=== PATIENT | female | born 1960 | race Caucasian/White ===

== ENCOUNTER → 2023-05-04 08:48 | Outpatient (REF) | payer BC, SELFPAY ==
[2023-05-04 12:47] LABS: % Basophils 0.7 % (0-2); % Eosinophils 1.9 % (0-6); % Immature Granulocytes 0.3 % (0-0.5); % Lymphocytes 21.9 % (20.5-51.1); % Monocytes 7.3 % (1.7-9.3); % Neutrophils 67.9 % (42.2-75.2); Absolute Basophils 0.1 10^3/uL (0-0.2); Absolute Eosinophils 0.1 10^3/uL (0-0.7); Absolute Lymphocytes 1.5 10^3/uL (1.2-3.4); Absolute Monocytes 0.5 10^3/uL (0.1-0.6); Absolute Neutrophils 4.7 10^3/uL (1.4-6.5); Hematocrit 45.3 % (37.0-47.0); Hemoglobin 15.5 g/dL (12.0-16.0); Mean Corp Hgb Conc. 34.2 g/dL (33.0-37.0); Mean Corpuscular Hgb 29.2 pg (27.0-31.0); Mean Corpuscular Volume 85.3 fL (81.0-99.0); Mean Platelet Volume 8.5 fL (7.4-10.4); Nucleated Red Blood Cells % 0 %; Platelet Count 454 10^3/uL (130-400); Red Blood Cell Count 5.31 10^6/uL (4.20-5.40); White Blood Cell Count 6.9 10^3/uL (4.8-10.8)
[2023-05-04 13:00] LABS: ALT (SGPT) 32 U/L (0-35); AST (SGOT) 30 U/L (14-36); Albumin 4.4 g/dl (3.5-5.0); Alkaline Phosphatase 86 U/L (38-126); Blood Urea Nitrogen 11 mg/dl (7-17); Calcium 10.2 mg/dl (8.4-10.2); Carbon Dioxide 29 mmol/L (22-30); Chloride 95 mmol/L (98-107); Glucose 124 mg/dl (70-99); HDL Cholesterol 56 mg/dl; LDL Cholesterol, Calculated 66 mg/dl; Potassium 4.2 mmol/L (3.5-5.1); Sodium 134 mmol/L (135-145); Total Bilirubin 0.6 mg/dl (0.2-1.3); Total Cholesterol 154 mg/dl (50-199); Triglyceride 163 mg/dl (10-149); Very Low Density Lipoprotein 32 mg/dl (0-30); eGFR > 60.00
[2023-05-04 13:22] LABS: Microalbumin, Random Urine <0.6 mg/dl (0.6-1.7)
[2023-05-04 14:07] LABS: Glycohemoglobin (HgbA1c) 6.2 % (4.0-5.6)
== END ==
LOC: HWLAB 08:48
PROVIDERS: ATTENDING PHYSICIAN Internal Medicine
DX: Z00.00 Encounter for general adult medical examination without abnormal findings (principal); E11.9 Type 2 diabetes mellitus without complications; R19.5 Other fecal abnormalities; E78.5 Hyperlipidemia, unspecified
CPT/HCPCS: 36415; 80053; 80061; 82043; 82570; 83036; 84443; 85025

== ENCOUNTER → 2023-10-10 09:46 | Outpatient (REF) | payer MEDICARE, BC, SELFPAY | LOC: HWRAD 09:46 | PROVIDERS: ATTENDING PHYSICIAN Internal Medicine | DX: Z78.0 Asymptomatic menopausal state (principal); Z12.31 Encounter for screening mammogram for malignant neoplasm of breast | CPT/HCPCS: 77063; 77067; 77080 ==

== ENCOUNTER → 2023-11-20 10:43 | Outpatient (REF) | payer MEDICARE, BC, SELFPAY ==
[2023-11-20 15:40] LABS: % Basophils 0.5 % (0-2); % Eosinophils 1.3 % (0-6); % Immature Granulocytes 0.3 % (0-0.5); % Lymphocytes 17.4 % (20.5-51.1); % Monocytes 7.4 % (1.7-9.3); % Neutrophils 73.1 % (42.2-75.2); Absolute Basophils 0.1 10^3/uL (0-0.2); Absolute Eosinophils 0.1 10^3/uL (0-0.7); Absolute Lymphocytes 1.6 10^3/uL (1.2-3.4); Absolute Monocytes 0.7 10^3/uL (0.1-0.6); Absolute Neutrophils 6.8 10^3/uL (1.4-6.5); Hematocrit 45.2 % (37.0-47.0); Hemoglobin 15.9 g/dL (12.0-16.0); Mean Corp Hgb Conc. 35.2 g/dL (33.0-37.0); Mean Corpuscular Hgb 30.1 pg (27.0-31.0); Mean Corpuscular Volume 85.4 fL (81.0-99.0); Mean Platelet Volume 8.4 fL (7.4-10.4); Nucleated Red Blood Cells % 0 %; Platelet Count 509 10^3/uL (130-400); Red Blood Cell Count 5.29 10^6/uL (4.20-5.40); Red Cell Dist. Width 12.3 % (11.5-14.5); White Blood Cell Count 9.4 10^3/uL (4.8-10.8)
[2023-11-20 15:50] LABS: ALT (SGPT) 20 U/L (0-35); AST (SGOT) 26 U/L (14-36); Albumin 4.9 g/dl (3.5-5.0); Alkaline Phosphatase 98 U/L (38-126); Blood Urea Nitrogen 11 mg/dl (7-17); Calcium 10.2 mg/dl (8.4-10.2); Carbon Dioxide 26 mmol/L (22-30); Chloride 96 mmol/L (98-107); Glucose 138 mg/dl (70-99); HDL Cholesterol 77 mg/dl; LDL Cholesterol, Calculated 60 mg/dl; Sodium 138 mmol/L (135-145); Total Bilirubin 0.7 mg/dl (0.2-1.3); Total Cholesterol 168 mg/dl (50-199); Total Protein 7.4 g/dl (6.3-8.2); Triglyceride 155 mg/dl (10-149); Very Low Density Lipoprotein 31 mg/dl (0-30); eGFR > 60.00
[2023-11-21 09:34] LABS: Glycohemoglobin (HgbA1c) 5.9 % (4.0-5.6)
== END ==
LOC: HWRAD 10:43
PROVIDERS: ATTENDING PHYSICIAN Internal Medicine
DX: S91.001A Unspecified open wound, right ankle, initial encounter (principal); R19.5 Other fecal abnormalities; E11.9 Type 2 diabetes mellitus without complications; E78.5 Hyperlipidemia, unspecified
CPT/HCPCS: 36415; 73610; 80053; 80061; 83036; 85025

== ENCOUNTER → 2024-01-10 10:37 | Outpatient (REF) | payer MEDICARE, BC, SELFPAY | LOC: RAD 10:37 | PROVIDERS: ATTENDING PHYSICIAN Internal Medicine | DX: E11.9 Type 2 diabetes mellitus without complications (principal); S91.001A Unspecified open wound, right ankle, initial encounter | CPT/HCPCS: 93925 ==

== ENCOUNTER 2024-02-12 06:25 | Day surgery (SDC) | payer MEDICARE, BC, SELFPAY | END 2024-02-12 12:28 | disposition home or self-care (01) | LOC: GI 06:25 | PROVIDERS: ATTENDING PHYSICIAN Internal Medicine Gastroenterology | DX: K62.4 Stenosis of anus and rectum (principal); D12.8 Benign neoplasm of rectum; D49.0 Neoplasm of unspecified behavior of digestive system; R19.5 Other fecal abnormalities; K22.89 Other specified disease of esophagus; K21.9 Gastro-esophageal reflux disease without esophagitis; K44.9 Diaphragmatic hernia without obstruction or gangrene; K31.7 Polyp of stomach and duodenum; K31.89 Other diseases of stomach and duodenum | CPT/HCPCS: 45385; 45380; 45381; 43239; 88305; 88342 ==

== ENCOUNTER → 2024-02-14 07:41 | Outpatient (REF) | payer MEDICARE, BC, SELFPAY ==
[2024-02-14 12:12] LABS: CEA 72.2 ng/ml
== END ==
LOC: HWLAB 07:41
PROVIDERS: ATTENDING PHYSICIAN Internal Medicine Gastroenterology; FAMILY PHYSICIAN Internal Medicine
DX: K63.89 Other specified diseases of intestine (principal); R19.5 Other fecal abnormalities
CPT/HCPCS: 36415; 82378

== ENCOUNTER → 2024-02-15 15:26 | Outpatient (REF) | payer MEDICARE, BC, SELFPAY | LOC: RAD 15:26 | PROVIDERS: ATTENDING PHYSICIAN Internal Medicine Gastroenterology; FAMILY PHYSICIAN Internal Medicine | DX: K63.89 Other specified diseases of intestine (principal) | CPT/HCPCS: 71260; 74177; Q9967 ==

== ENCOUNTER 2024-02-22 16:44 | Inpatient (IN) | payer MEDICARE, BC, SELFPAY ==
[2024-02-22] VITALS (9 sets, daily range): BP systolic 120–176; BP diastolic 55–83; BMI 21.6; BMI 22.3
[2024-02-22 11:38] LABS: % Basophils 0.8 % (0-2); % Eosinophils 0.2 % (0-6); % Immature Granulocytes 0.4 % (0-0.5); % Lymphocytes 15.7 % (20.5-51.1); % Monocytes 15.5 % (1.7-9.3); % Neutrophils 67.4 % (42.2-75.2); Absolute Lymphocytes 0.8 10^3/uL (1.2-3.4); Absolute Monocytes 0.8 10^3/uL (0.1-0.6); Absolute Neutrophils 3.3 10^3/uL (1.4-6.5); Hematocrit 40.3 % (37.0-47.0); Hemoglobin 14.5 g/dL (12.0-16.0); Mean Corpuscular Hgb 29.4 pg (27.0-31.0); Mean Corpuscular Volume 81.7 fL (81.0-99.0); Mean Platelet Volume 8.3 fL (7.4-10.4); Nucleated Red Blood Cells % 0 %; Platelet Count 335 10^3/uL (130-400); Red Blood Cell Count 4.93 10^6/uL (4.20-5.40); Red Cell Dist. Width 11.9 % (11.5-14.5); White Blood Cell Count 4.9 10^3/uL (4.8-10.8)
[2024-02-22 11:50] LABS: ALT (SGPT) 18 U/L (0-35); AST (SGOT) 33 U/L (14-36); Albumin 4.3 g/dl (3.5-5.0); Alkaline Phosphatase 83 U/L (38-126); Blood Urea Nitrogen 9 mg/dl (7-17); Calcium 9.2 mg/dl (8.4-10.2); Carbon Dioxide 28 mmol/L (22-30); Chloride 89 mmol/L (98-107); Glucose 110 mg/dl (70-99); Potassium 3.9 mmol/L (3.5-5.1); Sodium 126 mmol/L (135-145); Total Bilirubin 0.3 mg/dl (0.2-1.3); Total Protein 6.8 g/dl (6.3-8.2); eGFR > 60.00
[2024-02-22 12:01] LABS: COVID-19 Antigen Negative (Negative)
--- NOTE | 2024-02-22 12:01 | ED.GENMED ---
History of Present Illness
General
Chief Complaint: Cold/Flu/URI Symptoms
Source: patient
Exam Limitations: none
Time Seen by Provider: 02/22/24 11:47
History of Present Illness
History of Present Illness:
63yoF with a history of hypertension, hyperlipidemia, diet-controlled diabetes, and recently diagnosed rectal mass presenting for evaluation of a fever. Symptoms began about 10 days ago after having a colonoscopy. She was having low-grade fevers
with temperatures around 99 degrees. Her fever has worsened over the past 24 hours and her temperature this morning was 101.6. Patient also reports cough, congestion, and shortness of breath. She denies any vomiting, diarrhea, dysuria, abdominal
pain, chest pain. Her was sick initially but he is now feeling better.
Patient had a colonoscopy performed on 02/12/2024 which revealed 'A malignant-appearing, intrinsic severe stenosis with oozing ontouch was found in the proximal rectum at 20 cm and was non-traversed' as well as multiple polyps. Biopsy showed tubular
adenoma. Patient was scheduled to have another biopsy performed yesterday for definitive diagnosis but this was delayed due to her fever.
Phy Exam
General Physical Exam
General Presentation: well appearing and no apparent distress
General age: appears stated age
General Skin: warm and dry
General Habitus: normal
General Mental: alert
ENT Exam
ENT Exam: normocephalic
Cardiovascular Exam
Cardiovascular Exam: regular rate/rhythm and no murmur
Pulmonary Exam
Pulmonary Exam: lungs clear, no respiratory distress, no rales, no crackles, no rhonchi and other (Frequent cough )
Neurological Exam
Neurological Exam: alert
Faraz Coma Scale
Eye Opening: Spontaneous
Verbal Response: Oriented
Motor Response: Obeys Commands
GCS Total Score: 15
Skin Exam
Skin Exam: normal color and warm/dry
Psychiatric Exam
Psychiatric Exam: normal mood/affect
Course
Orders/Labs/Results
Orders:
Orders
02/22/24 11:22
Chest [CR Chest - 2 Views ] Urgent
Comment:
Reason For Exam: cough, fever
02/22/24 11:24
COVID-19 Antigen Urgent
Source: Nasal Swab
Complete Blood Count/With Diff Urgent
Comprehensive Metabolic Panel Urgent
TSH Reflex To Free T4 Urgent
Comment: TSH REFLEX ADDED ON BY FLOOR 3:10PM 02-22-24
Influenza A+B Rapid Molecular Urgent
PRINCESS Source: Nasal Swab
Specimen Description:
02/22/24 11:58
Electrocardiogram (*1) Urgent
Reason for Study: Shortness of Breath
EKG- Treatment ONCE
0.9% Sodium Chloride 1000 ml [Nss] 1,000 ml IV BOLUS
02/22/24 12:49
D-Dimer Urgent
Troponin I Urgent
02/22/24 13:47
CT Chest PE Study Urgent
Comment:
Reason For Exam: SOB, cough, elevated D-dimer
02/22/24 14:01
Chloride, Urine [S] Urgent
Date Specimen was Collected: 02/22/24
Time Specimen was Collected: 14:31
02/22/24 15:05
Osmolality, Random Urine Urgent
Date Specimen was Collected: 02/22/24
Time Specimen was Collected: 14:31
Urinalysis Reflex To Culture Urgent
Date Specimen was Collected: 02/22/24
Time Specimen was Collected: 14:31
Urine Sodium Urgent
Date Specimen was Collected: 02/22/24
Time Specimen was Collected: 14:31
02/22/24 15:11
Add On- LAB Urgent
Tests Added?: Tsh with free t4 reflex
02/22/24 15:15
Blood Culture Q30M
PRINCESS Source: Blood/Venous
Specimen Description:
02/22/24 15:45
Blood Culture Q30M
PRINCESS Source: Blood/Venous
Specimen Description:
02/22/24 15:56
Admit/Transfer Patient As Directed
Co-Sign Provider:
Level of Care: Inpatient admission
Assign to:: Telemetry
Physician / Group: nicolas henriquez
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
Reason for Telemetry: Arrhythmia
Date to Stop Telemetry: 02/25/24
Time to Stop Telemetry: 11:00
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
Expected length of stay greater than two midnights?: Yes
ELOS- Estimated Length of Stay in days: 3
I certify the patient meets the requirements for IP care: Yes
Code Status As Directed
Resuscitation Status: Full Code
02/22/24 16:00
Nicotine [Nicoderm Transdermal] 21 mg TRANSDERM DAILY
02/22/24 16:05
PRN Pain Medication Management As Directed
May give lesser potent ordered pain med per pt: Yes
preference::
Protocol:: Medication orders for pain may be administered in a
manner that supports deferring to patient preference
when the pt is:
- Requesting an ordered lesser potent pain medication.
Least to most potent pain medications are defined
as: acetaminophen < NSAID < tramadol < opioids
(morphine, oxycodone, hydromorphone).
- Requesting a lesser dose of the same medication IF
ORDERED.
- Requesting a less intrusive route of administration
if both routes are prescribed by the provider (PO <
IV).
02/22/24 16:15
Blood Culture Q30M
PRINCESS Source: Blood/Venous
Specimen Description:
02/25/24 11:00
DC Protocol for Telemetry ONCE
Abnormal Lab Results
02/22/24 02/22/24 02/22/24
11:24 12:49 15:05
Absolute Lymphs (auto) 0.8 L 10^3/uL
(1.2-3.4)
Absolute Monos (auto) 0.8 H 10^3/uL
(0.1-0.6)
Lymphocytes % 15.7 L %
(20.5-51.1)
Monocytes % 15.5 H %
(1.7-9.3)
D-Dimer 0.65 H ug/mlFEU
(0.00-0.50)
Sodium 126 L mmol/L
(135-145)
Chloride 89 L mmol/L
(98-107)
Glucose 110 H mg/dl
(70-99)
Urine Osmolality 171 L mOsm/kg
(300-900)
02/22/24 11:24
02/22/24 11:24
Vital Signs
Initial and Last Documented VS:
Initial Vital Signs
Temp Pulse Resp BP Pulse Ox
98.5 F 87 18 144/76 96
02/22/24 11:18 02/22/24 11:18 02/22/24 11:18 02/22/24 11:18 02/22/24 11:18
Last Documented Vital Signs
Temp Pulse Resp BP Pulse Ox
100.7 F H 75 20 137/66 95
02/22/24 16:48 02/22/24 16:45 02/22/24 16:45 02/22/24 16:44 02/22/24 16:45
MDM/Problems Addressed
Differential Diagnosis Includes:
63yoF here with fevers, cough, fatigue x 10 days. Started after having a colonoscopy. Newly diagnosed rectal mass, biopsy confirmed tubular adenoma. Patient reports a fever of 101.6 earlier today although is afebrile on arrival. She is acutely
nontoxic appearing. No signs of respiratory distress. Differential diagnosis includes but is not limited to: Viral illness, bronchitis, pneumonia, fever related to malignancy
Initial ED plan: Check cardiac labs, D-dimer, EKG, COVID/flu swab, and CXR. IV fluid bolus.
*EKG
Interpreted by ED Provider?: Yes
EKG Intrepretation Date: 02/22/24
Heart Rate: 70
Rate: normal
Rhythm: sinus
Export: normal axis
Interval: normal interval
QRS Pattern: normal QRS
Ischemia: no ischemia
*Critical Care Note
Total Time (30-74mins, 75-104mins- exclusive of procedures): Not Applicable
Update Note
Update Note:
COVID/flu swab negative. White count within normal limits. Sodium 126 which appears to be new. D-dimer elevated and CTA chest subsequently ordered. CT is negative for pulmonary embolism and infiltrates. Unclear etiology of fever. Patient
admitted for further evaluation and management.
ED Attending Note
-
Portions of this chart may have been created with voice recognition software.� Occasional wrong word or��sound alike� substitutions may have occurred due to the inherent limitations of voice recognition software.
Discharge Plan
Departure
Patient Disposition: Admit
Date of Disposition: 02/22/24
Time of Disposition: 14:50
Presentation/result/management discussed w/ accepting MD/DO: Hospitalist
Discharge Problem:
Hyponatremia, Fever
Interventions
Interventions:
*Risk Screen - Suicide Last Done: 02/22/24 11:18
*General Assessment Last Done: 02/22/24 11:18
*Neglect/Abuse Screening Last Done: 02/22/24 11:18
*ED COVID-19 Vaccine History Last Done: 02/22/24 11:18
ED- Pulmonary Assessment Last Done: 02/22/24 12:00
[2024-02-22] MEDS: NSS 1000 IV (12:42)
[2024-02-22 13:18] LABS: D-Dimer 0.65 ug/mlFEU (0.00-0.50)
[2024-02-22 13:26] LABS: Troponin I < 0.012 ng/ml
[2024-02-22 15:13] LABS: Urine Albumin Negative (Neg - Trace); Urine Bilirubin Negative (Negative); Urine Character Clear (Clear); Urine Color Straw; Urine Glucose Negative (Negative); Urine Ketone Negative (Negative); Urine Leukocyte Negative (Negative); Urine Nitrite Negative (Negative); Urine Occult Blood Negative (Negative); Urine Specific Gravity 1.005 (<1.030); Urine Urobilinogen Negative (Neg - 1+)
--- NOTE | 2024-02-22 15:14 | HPS.HSE ---
Addendum entered and electronically signed by Lexa Aceves MD 02/22/24 16:26:
I saw and examined the patient.
The PARBOILER or PA's note was reviewed and I agree with the note.
Comment:
63-year-old female with recent bleed found rectal mass found to be tubular adenoma and planning to have biopsy for definitive diagnosis now presents for 10 days of ongoing fever.� Temperatures have been low-grade however spikes to 101.6 this
morning. �Associated symptoms include cough, congestion, shortness of breath.� No nausea, abdominal pain, vomiting, diarrhea.� did initially feel sick although now feels better.� Temperature was recorded outpatient, no febrile episode
inpatient.� Sodium level 126,. �On hydrochlorothiazide.� No urinary symptoms. Chest PE was performed with no acute findings.� CT imaging on 02/14 had shown suspicion for malignancy along with the mass.� Also has partial obstruction of the distal left
ureter with moderate to severe associated left hydronephrosis and left ureter hydroureter.
OF note: colonoscopy performed 10 days ago showing A malignant-appearing, intrinsic severe stenosis with oozing ontouch was found in the proximal rectum at 20 cm and was non-traversed' as well as multiple polyps. Biopsy showed tubular adenoma.
Patient was scheduled to have another biopsy performed yesterday for definitive diagnosis but this was delayed due to her fever.
PE�mild expiratory bronchospasm, wheezing.� Otherwise no abdominal pain, tenderness.
Actively smokes 1-1.5 ppd x 47 years, no evidence of quitting despite education; 250cc wine per day.
Plan�monitor fever curve, white count.� DuoNebs standing, as needed.� Hold antibiotics for now, low threshold to initiate.� Can culture if spikes temperature.� Follow-up UA.� Urine osmolality, urine sodium. Stop HCTZ permanently. �IVF, LR bolus now.
More than likely viral illness.
Original Note:
Family Physician
-
Family Physician: Sheila Pack
Chief Complaint
-
10 days of fever last 4 days 100�101.6F, cough, wheezing, headache top of head, nasal congestion with rebound congestion from Afrin
History of Present Illness
63-year-old female recently diagnosed with rectal mass presenting for evaluation of fever that began 10 days ago after a colonoscopy. She reports low-grade fevers with temp 99 �F, however he states over the past 4 days it has been 100-1 01.6F this
a.m. She spoke with Dr. Salguero's office on Monday and did make them aware of her fevers however they did not tell her that her surgery was canceled for the following day 02/20/2024. She also reports cough, nasal congestion, chronic shortness of
breath, headache to the top of her head, nasal congestion. She has been using Afrin since Monday on and off for the past 5 days. She does report a history of addiction to Afrin in the past. She states her has been sick with the same
symptoms but now he is feeling better. He did not seek any treatment for diagnosis. She denies, sore throat, chest pain, palpitations, abdominal pain, nausea, vomiting, diarrhea, urinary symptoms. . She had a colonoscopy performed 02/12/2024
Showing 'A malignant-appearing, intrinsic severe stenosis with oozing ontouch was found in the proximal rectum at 20 cm and was non-traversed' as well as multiple polyps. Biopsy showed tubular adenoma. Patient was scheduled to have another biopsy
performed yesterday for definitive diagnosis but this was delayed due to her fever. She has past medical history of COPD, nicotine abuse 1-1.5 pack/day x 47 years, alcohol abuse, HTN, HLD, GERD.
Medical History
Past Medical History
Past Medical History: Reports Other
Additional Past Medical History:
COPD
nicotine abuse 1-1.5 pack/day x 47 years
alcohol abuse daily 375 mL wine
HTN
HLD
GERD
Past Surgical History: Reports Other
Additional Past Surgical History:
Cyst removal stomach, face local anesthesia�benign
COLO performed 02/12/2024 Showing 'A malignant-appearing, intrinsic severe stenosis with oozing ontouch was found in the proximal rectum at 20 cm and was non-traversed' as well as multiple polyps. Biopsy showed tubular adenoma. due for another
biopsy of the distal rectum polyp 10 to 12 mm due to incomplete polyp resection 02/20/2024 was held due to reported patient fever 101F
Social History
Tobacco: Smoker (1-1.5 pack/day x 47 years)
Alcohol: Daily (375 mL wine daily last drink 6 days ago 02/16/2024)
Drug: None
Personal:
Living: With Family ( [place])
Employment: Retired
Family History
Family History: Other (Mother of cirrhosis age 39)
Allergies / Home Medications
Allergies reflects when Allergies were last updated in [facility].
Home Medications with original date entered in [facility]
Allergy/Medication List:
Allergies
Allergy/AdvReac Type Severity Reaction Status Date / Time
lisinopril Allergy cough Verified 02/22/24 11:22
Home Medications
acetaminophen 325 mg tablet (Tylenol) 650 mg PO Q6HPRN PRN fever 02/22/24
albuterol sulfate 90 mcg/actuation aerosol inhaler 2 puff inhalation R QIDPRN PRN sob 02/22/24
amlodipine 2.5 mg tablet (Norvasc) 2.5 mg PO DAILY 02/22/24
bisacodyl 5 mg tablet,delayed release (Dulcolax (bisacodyl)) 5 mg PO DAILYPRN PRN only of miralax does not work 02/22/24
hydrochlorothiazide 25 mg tablet 25 mg PO DAILY 02/22/24
montelukast 10 mg tablet (Singulair) 10 mg PO HS 02/22/24
polyethylene glycol 3350 17 gram oral powder packet (Miralax) 17 g PO HS 02/22/24
ranitidine HCl 150 mg tablet 150 mg PO HS 02/22/24
simvastatin 20 mg tablet (Zocor) 20 mg PO HS 02/22/24
Review of Systems
-
History Source: Patient
A 12 point ROS was completed and negative except as noted: Yes
Constitutional: Reports Fever and Chills; Denies Fatigue
EENT: Reports Other (Nasal congestion chronic/Afrin induced); Denies Sore Throat
Respiratory: Reports Cough and Trouble Breathing (Expiratory wheezing)
Cardiac: Denies Chest Pain, Diaphoresis, Palpitations or Syncope
Abdomen/GI: Denies Abdominal Pain, Nausea, Vomiting, Diarrhea, Constipated, Bloody Stools or Black Stools
: Denies Dysuria, Frequency, Flank Pain, Incontinence, Difficulty Voiding or Urgency
Musculoskeletal: Denies Joint Pain or Edema
Skin: Denies Itching or Rash
Neurological: Reports Headache (Top of head); Denies Dizzy, Weakness or Numbness
Endocrine: Reports No Symptoms
Hematologic/Lymphatic: Reports No Symptoms
Psych: Reports Calm
Physical Exam
Vital Signs
Vital Signs
Temp Pulse Resp BP Pulse Ox
98.5 F 83 22 176/55 97
02/22/24 11:18 02/22/24 13:45 02/22/24 13:45 02/22/24 13:00 02/22/24 13:45
Physical Exam
General: Conversant, Fever (Reported 101.6F in a.m. down to 100 for the past 4 days) and Chills
HEENT: NormoCephalic, Anicteric, PERRLA, [place] Conjunctivae, No Ptosis and Other (Nasal congestion); No Pharyngeal Erythema
Respiratory: Wheezes (Expiratory bilaterally throughout both lung chu); No Rales or Rhonchi
Cardiac: S1/S2 and Regular Rhythm; No Murmur, Rub, Gallop or Peripheral Edema
Breast: Deferred by me
GI: Soft, Non Tender, Non Distended, Normal Bowel Sounds and No Hepatosplenomegaly
Rectal: Deferred by Provider
Genito-urinary: Deferred by me
Musculoskeletal: No Clubbing, No Cyanosis and No Edema
Skin: Warm and Dry; No Rash or Jaundice
Neuro: AO x 3, No Motor Deficits, Nonfocal/grossly intact, Cranial Nerves Intact and No Sensory Deficits; No Slurred Speech, Facial Droop, Tremors or Sedated
Psych: Calm
Laboratory Results
-
02/22/24 11:24
02/22/24 11:24
Laboratory Results
Total Bilirubin 0.3 mg/dl (0.2-1.3) 02/22/24 11:24
AST 33 U/L (14-36) 02/22/24 11:24
ALT 18 U/L (0-35) 02/22/24 11:24
Alkaline Phosphatase 83 U/L (38-126) 02/22/24 11:24
Troponin I < 0.012 ng/ml 02/22/24 12:49
Data Reviewed
-
Diagnostic Radiology: Report Reviewed by me
CT Scan: Report Reviewed by me
Lab Data: Labs Reviewed by me
Impression/Plan
-
Impression/plan:
Inpt telemetry
#Acute febrile illness unclear concern for Acute On chronic CoPD exacerbation
Reported 6-day history 99F temp then 4-day history 100�101.6F temperature starting in the morning persisting throughout the day
WBC 4.9
-COVID/influenza negative, CT PE study negative for pneumonia/PE, CXR negative
-urinalysis negative
-Blood cultures x 2
-duo nebs vasquez and prn
-Will hold off on antibiotics and eval for any Objective temperature and/or WBC count elevation
-Follow CBC, CMP
CT PE study: No PE.
Mild centrilobular emphysema
#Emphysema hx
#Nicotine abuse
-1-1.5 pack/day x 47 years
-Add nicotine 21 mg patch
-Continue singular 10 mg at bedtime
-Continue albuterol ProAir 4 times daily as needed
#Hyponatremia secondary to Beer Potomania/HCTZ use
NA 126
Patient drinks 375 mL wine daily
-HOLD HCTZ 25 mg daily
-Patient received 1 L NSS in ER
-Check UA PROTOTYPE CARPENTER
-Check urine NA, urine Osmo, serum Osmo, TSH with free T4 reflex
#Alcohol abuse
Drinks 375 mL wine daily last drink was 6 days ago 02/16/2024
-MSAs screen with protocol
-IV thiamine, IV folate
-Cessation advised
#Recent Tubular adenoma on colonoscopy 02/12/2024 proximal rectum
-Was due for another biopsy of the distal rectum polyp 10 to 12 mm due to incomplete polyp resection on 02/20/[address] Salguero but held due to reported fever 101 by patient to office
COLO performed 02/12/2024 Showing 'A malignant-appearing, intrinsic severe stenosis with oozing ontouch was found in the proximal rectum at 20 cm and was non-traversed' as well as multiple polyps. Biopsy showed tubular adenoma. Patient was
scheduled to have another biopsy performed yesterday for definitive diagnosis but this was delayed due to her fever.
#HTN�benign
-BP 176/55
-Continue amlodipine 2.5 mg daily,
-HOLD HCTZ 25 mg daily
#HLD
-Continue Zocor 20 mg at bedtime
#GERD
-Continue Zantac 150 milligrams at bedtime(now is famotidine OTC)
DVT prophylaxis
SCDs
Full code per patient states [place] Anne is her legal
[2024-02-22 15:15] LABS: Osmolality Urine 171 mOsm/kg (300-900)
[2024-02-22 15:28] LABS: Urine Sodium 55 mmol/L (30-90)
--- NOTE | 2024-02-22 17:07 | W.PN.UPDATE ---
Update Note
Progress Note Update
#Temperature of unclear etiology
Patient with temperature 100.7F at 1653 attending made aware
-Will add Tylenol as needed
-Sputum culture
-Blood cultures are pending
-Hold on current antibiotics
-Check CT abdomen pelvis with IV and oral contrast
-IV LR 100 cc/h
[2024-02-22 17:10] LABS: TSH Reflex To Free T4 2.52 uIU/ml (0.47-4.68)
[2024-02-22] MEDS: NICODERM TRANSDERMAL 21 MG TRANSDERM (17:22)
[2024-02-22] MEDS: TYLENOL 650 MG PO (17:23)
[2024-02-22] MEDS: OMNIPAQUE 50 ML PO (17:24)
--- NOTE | 2024-02-22 19:03 | PTCARENOTE ---
Pt arrived to 3W via stretcher and ambulated to bed. Admission and assessment complete. Pt. oriented to unit and restaurant shift supervisor RN updated.
[2024-02-22] MEDS: LR 1000 IV (19:11)
[2024-02-22] MEDS: DUONEB 3 ML INH ×2 (19:12→22:34)
[2024-02-22 19:59] LABS: GGTP 52 U/L (12-43); Phosphorus 3.5 mg/dl (2.5-4.5)
[2024-02-22 20:00] LABS: Alcohol None Detected
[2024-02-22 20:06] LABS: B-Hydroxybutyrate 0.32 mmol/L (0.02-0.27)
[2024-02-22 20:14] LABS: Amphetamines Negative (Negative); Barbiturates Negative (Negative); Benzodiazepines Negative (Negative); Buprenorphine Negative (Negative); Cocaine Negative (Negative); Marijuana Negative (Negative); Methadone Negative (Negative); Methamphetamines Negative (Negative); Opiates Negative (Negative); Phencyclidine Negative (Negative); Tricyclic Antidepressants Negative (Negative)
[2024-02-22] MEDS: PEPCID 20 MG PO (21:04)
[2024-02-22 21:19] LABS: INR 0.92; PT 12.9 Sec (11.4-14.6)
[2024-02-22 21:20] LABS: APTT 32.4 Sec (23.4-35.0)
[2024-02-22] MEDS: LIPITOR 10 MG PO (22:29)
[2024-02-22] MEDS: SINGULAIR 10 MG PO (22:29)
[2024-02-22] MEDS: MIRALAX 17 GRAMS PO (22:40)
[2024-02-22] MEDS: THIAMINE INJECTION IV (22:40)
[2024-02-22] MEDS: ROBITUSSIN DM 5 ML PO (22:41)
[2024-02-23] VITALS (8 sets, daily range): BP systolic 104–138; BP diastolic 49–70; PULSE 65–72; O2SAT 93–94; BMI 22.2
[2024-02-23] MEDS: THIAMINE INJECTION 200 MG IV ×3 (00:15→16:57)
[2024-02-23] MEDS: LR 1000 IV ×2 (05:46→16:49)
[2024-02-23 06:33] LABS: % Basophils 0.6 % (0-2); % Eosinophils 0.4 % (0-6); % Immature Granulocytes 0.4 % (0-0.5); % Lymphocytes 13.6 % (20.5-51.1); % Monocytes 11.7 % (1.7-9.3); % Neutrophils 73.3 % (42.2-75.2); Absolute Lymphocytes 0.7 10^3/uL (1.2-3.4); Absolute Monocytes 0.6 10^3/uL (0.1-0.6); Absolute Neutrophils 3.8 10^3/uL (1.4-6.5); Hematocrit 36.6 % (37.0-47.0); Mean Corp Hgb Conc. 35.5 g/dL (33.0-37.0); Mean Corpuscular Hgb 29.5 pg (27.0-31.0); Mean Platelet Volume 8.6 fL (7.4-10.4); Nucleated Red Blood Cells % 0 %; Platelet Count 309 10^3/uL (130-400); Red Blood Cell Count 4.41 10^6/uL (4.20-5.40); Red Cell Dist. Width 11.9 % (11.5-14.5); White Blood Cell Count 5.1 10^3/uL (4.8-10.8)
[2024-02-23 06:54] LABS: ALT (SGPT) 16 U/L (0-35); AST (SGOT) 31 U/L (14-36); Albumin 3.6 g/dl (3.5-5.0); Alkaline Phosphatase 75 U/L (38-126); Blood Urea Nitrogen 7 mg/dl (7-17); Calcium 8.5 mg/dl (8.4-10.2); Carbon Dioxide 26 mmol/L (22-30); Chloride 94 mmol/L (98-107); Estimated Creatinine Clearance 84 ml/min; Glucose 97 mg/dl (70-99); Potassium 3.7 mmol/L (3.5-5.1); Sodium 128 mmol/L (135-145); Total Bilirubin 0.2 mg/dl (0.2-1.3); Total Protein 5.9 g/dl (6.3-8.2); eGFR > 60.00
[2024-02-23] MEDS: DUONEB 3 ML INH ×4 (07:17→19:53)
[2024-02-23] MEDS: NORVASC 2.5 MG PO (08:52)
[2024-02-23] MEDS: FOLVITE 1 MG PO (08:52)
[2024-02-23] MEDS: NICODERM TRANSDERMAL TRANSDERM (08:54)
[2024-02-23] MEDS: TYLENOL 650 MG PO (08:58)
--- NOTE | 2024-02-23 10:39 | CM ---
CM following re: discharge planning.
Reviewed pt's chart, met with pt.
Pt is a 63 year old female, admitted with primary dx of Acute febrile illness unclear concern for Acute On chronic COPD exacerbation
Pt reports she lives with any [place] no steps, has 3 dogs, has no children. Pt described herself as independent in all areas PTAS. No DME, VN or SNF history.
Pt denied having alcohol problem, requested not to talk about it, declined meeting with [facility]. Pt stated: 'Who the hell told you that I have alcohol problem. I have been drinking 2 drinks daily and this is not a problem at all. I am a smoker also
and guess what i have no planer to quit smoking and not to have my drinks daily'. Emotional support with reassurance offered and provided. Pt expressed his very unpleasant feeling touching her drinking habit topic.
PCP: Sheila Pack
Ph[facility]: [facility]
D/C plan: home wit anticipated no needs. to transport at discharge.
CM will follow with discharge plan updates as needed.
[2024-02-23] MEDS: NICORETTE 4 MG PO (12:02)
--- NOTE | 2024-02-23 14:56 | W.PN.HOSP.TC ---
Today's Communication/Plan
-
Monitor fever curve
Monitor sodium with fluids
Assessment / Plan
Assessment / Plan
Physical Exam
General: Conversant, Fever (Reported 101.6F in a.m. down to 100 for the past 4 days) and Chills
HEENT: NormoCephalic, Anicteric, PERRLA, [place] Conjunctivae, No Ptosis and Other (Nasal congestion); No Pharyngeal Erythema
Respiratory: Wheezes (Expiratory bilaterally throughout both lung chu); No Rales or Rhonchi
Cardiac: S1/S2 and Regular Rhythm; No Murmur, Rub, Gallop or Peripheral Edema
Breast: Deferred by me
GI: Soft, Non Tender, Non Distended, Normal Bowel Sounds and No Hepatosplenomegaly
Rectal: Deferred by Provider
Genito-urinary: Deferred by me
Musculoskeletal: No Clubbing, No Cyanosis and No Edema
Skin: Warm and Dry; No Rash or Jaundice
Neuro: AO x 3, No Motor Deficits, Nonfocal/grossly intact, Cranial Nerves Intact and No Sensory Deficits; No Slurred Speech, Facial Droop, Tremors or Sedated
Psych: Calm
#Acute febrile illness
� Probable viral illness
� Follow-up cultures
�Monitor fever curve, white count
� CT imaging with no evidence of acute infection, of note had recent colonoscopy due to colorectal neoplasm
#Hyponatremia
� Most likely secondary to hydrochlorothiazide use, continued alcohol drinking
� Stop hydrochlorothiazide
� IVF as needed
� Continue monitoring
#COPD
1-1.5 pack/day x 47 years
-nictone gum
-Continue singular 10 mg at bedtime
-Continue albuterol ProAir 4 times daily as needed
-tobacco cessation
#Alcohol abuse
� Educate on cessation
� Alcohol withdrawal protocol
#Recent Tubular adenoma on colonoscopy 02/12/2024 proximal rectum
-Was due for another biopsy of the distal rectum polyp 10 to 12 mm due to incomplete polyp resection on 02/20/[address] Salguero but held due to reported fever 101 by patient to office-
- COLO performed 02/12/2024 Showing 'A malignant-appearing, intrinsic severe stenosis with oozing ontouch was found in the proximal rectum at 20 cm and was non-traversed' as well as multiple polyps. Biopsy showed tubular adenoma. Patient was
scheduled to have another biopsy performed yesterday for definitive diagnosis but this was delayed due to her fever.
-F/u outpt
#Adenexal mass
-f/u outpt
#HTN�benign
-BP 176/55
-Continue amlodipine 2.5 mg daily,
-HOLD HCTZ 25 mg daily
#HLD
-Continue Zocor 20 mg at bedtime
#GERD
-Continue Zantac 150 milligrams at bedtime(now is famotidine OTC)
DVT prophylaxis
HSQ
Anticipated Discharge: 24 - 48 hours
Subjective/Interval History
-
Date of Service: February 23, 2024
Febrile episode yesterday
Objective Data
-
Labs:
Laboratory Results
02/23/24
05:32
WBC 5.1
Hgb 13.0
Hct 36.6 L
Plt Count 309
Sodium 128 L
Potassium 3.7
Chloride 94 L
Carbon Dioxide 26
BUN 7
Creatinine 0.6
Glucose 97
Calcium 8.5
Total Bilirubin 0.2
AST 31
ALT 16
Alkaline Phosphatase 75
Vital Signs:
Vital Signs
Temp Pulse Resp BP Pulse Ox
98.0 F 65 17 116/63 94
02/23/24 11:20 02/23/24 11:20 02/23/24 11:20 02/23/24 11:20 02/23/24 13:40
I&O
0102/23/24 02/24/24
06:59 06:59 06:59
Intake Total 1919
Balance 1919
Review of Systems
-
History Source: Patient
All other systems: Not reviewed unless documented
Data Reviewed
-
Diagnostic Radiology: Report Reviewed by me
CT Scan: Report Reviewed by me
Labs: Labs Reviewed by me
[2024-02-23] MEDS: PEPCID 20 MG PO (20:54)
[2024-02-23] MEDS: SINGULAIR 10 MG PO (20:54)
[2024-02-23] MEDS: LIPITOR 10 MG PO (20:54)
[2024-02-23] MEDS: MIRALAX PO (20:56)
[2024-02-23] MEDS: ROBITUSSIN DM 5 ML PO (22:04)
[2024-02-24] MEDS: THIAMINE INJECTION 200 MG IV ×2 (00:20→09:41)
[2024-02-24] MEDS: LR 1000 IV (02:56)
[2024-02-24 03:00] VITALS: BP 116/55
[2024-02-24 06:00] VITALS: BMI 22.8
[2024-02-24] MEDS: ROBITUSSIN DM 5 ML PO (06:35)
[2024-02-24] MEDS: DUONEB 3 ML INH ×2 (07:32→11:21)
[2024-02-24 08:05] VITALS: BP 130/47
[2024-02-24 08:38] LABS: % Immature Granulocytes 0.2 % (0-0.5); % Lymphocytes 19.4 % (20.5-51.1); % Monocytes 10.1 % (1.7-9.3); % Neutrophils 69.3 % (42.2-75.2); Absolute Lymphocytes 0.8 10^3/uL (1.2-3.4); Absolute Monocytes 0.4 10^3/uL (0.1-0.6); Absolute Neutrophils 2.9 10^3/uL (1.4-6.5); Hematocrit 34.7 % (37.0-47.0); Hemoglobin 12.3 g/dL (12.0-16.0); Mean Corp Hgb Conc. 35.4 g/dL (33.0-37.0); Mean Corpuscular Hgb 29.6 pg (27.0-31.0); Mean Corpuscular Volume 83.4 fL (81.0-99.0); Mean Platelet Volume 8.5 fL (7.4-10.4); Nucleated Red Blood Cells % 0 %; Platelet Count 276 10^3/uL (130-400); Red Blood Cell Count 4.16 10^6/uL (4.20-5.40); Red Cell Dist. Width 12.2 % (11.5-14.5); White Blood Cell Count 4.2 10^3/uL (4.8-10.8)
[2024-02-24 08:58] LABS: ALT (SGPT) 15 U/L (0-35); AST (SGOT) 33 U/L (14-36); Albumin 3.4 g/dl (3.5-5.0); Alkaline Phosphatase 68 U/L (38-126); Blood Urea Nitrogen 5 mg/dl (7-17); Carbon Dioxide 27 mmol/L (22-30); Chloride 98 mmol/L (98-107); Estimated Creatinine Clearance 84 ml/min; Glucose 136 mg/dl (70-99); Potassium 3.7 mmol/L (3.5-5.1); Sodium 132 mmol/L (135-145); Total Bilirubin 0.3 mg/dl (0.2-1.3); Total Protein 5.5 g/dl (6.3-8.2); eGFR > 60.00
[2024-02-24] MEDS: NICORETTE 4 MG PO ×2 (09:41→21:22)
[2024-02-24] MEDS: FOLVITE 1 MG PO (09:41)
[2024-02-24] MEDS: NICODERM TRANSDERMAL TRANSDERM (09:41)
[2024-02-24] MEDS: NORVASC 2.5 MG PO (09:41)
[2024-02-24] MEDS: FLAGYL 500 MG 100 IV (11:10)
[2024-02-24] MEDS: TESSALON PERLES 200 MG PO ×2 (11:11→20:28)
[2024-02-24] MEDS: MAXIPIME 2000 MG IV ×2 (11:11→20:11)
[2024-02-24] MEDS: STERILE WATER FOR INJECTION 10 ML IV ×2 (11:11→20:11)
[2024-02-24 11:35] VITALS: BP 103/80
--- NOTE | 2024-02-24 11:35 | W.PN.HOSP.TC ---
Today's Communication/Plan
-
Repeat blood cultures
Add cefepime, Flagyl
Monitor fever curve, white count
Echo
Assessment / Plan
Assessment / Plan
Physical Exam
General: Conversant, Fever (Reported 101.6F in a.m. down to 100 for the past 4 days) and Chills
HEENT: NormoCephalic, Anicteric, PERRLA, [place] Conjunctivae, No Ptosis and Other (Nasal congestion); No Pharyngeal Erythema
Respiratory: Wheezes (Expiratory bilaterally throughout both lung chu); No Rales or Rhonchi
Cardiac: S1/S2 and Regular Rhythm; No Murmur, Rub, Gallop or Peripheral Edema
Breast: Deferred by me
GI: Soft, Non Tender, Non Distended, Normal Bowel Sounds and No Hepatosplenomegaly
Rectal: Deferred by Provider
Genito-urinary: Deferred by me
Musculoskeletal: No Clubbing, No Cyanosis and No Edema
Skin: Warm and Dry; No Rash or Jaundice
Neuro: AO x 3, No Motor Deficits, Nonfocal/grossly intact, Cranial Nerves Intact and No Sensory Deficits; No Slurred Speech, Facial Droop, Tremors or Sedated
Psych: Calm
#Sepsis
#Bacteremia
� Follow-up blood cultures, repeat today
� Add cefepime, Flagyl for possible GI source in setting of GI malignancy
�Monitor fever curve, white count
� CT imaging with no evidence of acute infection, of note had recent colonoscopy due to colorectal neoplasm
-F/u ECHO
#Hyponatremia, improving
� Most likely secondary to hydrochlorothiazide use, continued alcohol drinking(Beer Potomania)
� Stop hydrochlorothiazide
� IVF as needed
� Continue monitoring
#COPD
1-1.5 pack/day x 47 years
-nictone gum
-Continue singular 10 mg at bedtime
-Continue albuterol ProAir 4 times daily as needed
-tobacco cessation
#Alcohol abuse
� Educate on cessation
� Alcohol withdrawal protocol
#Recent Tubular adenoma on colonoscopy 02/12/2024 proximal rectum
-Was due for another biopsy of the distal rectum polyp 10 to 12 mm due to incomplete polyp resection on 02/20/[address] Salguero but held due to reported fever 101 by patient to office-
- COLO performed 02/12/2024 Showing 'A malignant-appearing, intrinsic severe stenosis with oozing ontouch was found in the proximal rectum at 20 cm and was non-traversed' as well as multiple polyps. Biopsy showed tubular adenoma. Patient was
scheduled to have another biopsy performed yesterday for definitive diagnosis but this was delayed due to her fever.
-F/u outpt
#Adenexal mass
-f/u outpt
#HTN�benign
-Continue amlodipine 2.5 mg daily,
-HOLD HCTZ 25 mg daily
#HLD
-Continue Zocor 20 mg at bedtime
#GERD
-Continue Zantac 150 milligrams at bedtime(now is famotidine OTC)
DVT prophylaxis
HSQ
Total time spent on today's encounter was 50 minutes which included time spent in counseling the patient/family regarding diagnosis and treatment plan as listed above, goals of care, and symptom management. Case was discussed with nursing staff,
specialists, and care coordinators/case management. All labs and imaging personally reviewed by me. Remainder the time spent in detailed review of previous records, lab data, imaging, and other medical provider documentation.
Anticipated Discharge: > 48 hours
Subjective/Interval History
-
Date of Service: February 24, 2024
Blood cultures positive x 2, no further febrile episodes
Objective Data
-
Labs:
Laboratory Results
02/24/24
08:18
WBC 4.2 L
Hgb 12.3
Hct 34.7 L
Plt Count 276
Sodium 132 L
Potassium 3.7
Chloride 98
Carbon Dioxide 27
BUN 5 L
Creatinine 0.6
Glucose 136 H
Calcium 8.0 L
Total Bilirubin 0.3
AST 33
ALT 15
Alkaline Phosphatase 68
Vital Signs:
Vital Signs
Temp Pulse Resp BP Pulse Ox
98.1 F 75 16 130/47 96
02/24/24 08:05 02/24/24 08:05 02/24/24 11:23 02/24/24 08:05 02/24/24 11:23
I&O
02/23/24 02/24/24 02/25/24
06:59 06:59 06:59
Intake Total 1919 540 / 540
Balance 1919 540 / 540
Review of Systems
-
History Source: Patient
All other systems: Not reviewed unless documented
Data Reviewed
-
Diagnostic Radiology: Report Reviewed by me
CT Scan: Report Reviewed by me
Labs: Labs Reviewed by me
[2024-02-24] MEDS: DUONEB INH (15:40)
[2024-02-24 15:41] VITALS: BP 128/55
[2024-02-24] MEDS: VENTOLIN NEBULES 2.5 MG INH ×2 (16:00→20:34)
--- NOTE | 2024-02-24 16:01 | RESPNOTE ---
patient c/o dry mouth. TT to Dr. Aceves to changed duonebs to albuterol nebs QID. jim with , order sent to pharmacy
[2024-02-24] MEDS: PERIDEX 0.12% ORAL RINSE 15 ML PO (18:21)
[2024-02-24] MEDS: PEPCID 20 MG PO (18:21)
[2024-02-24] MEDS: LR IV (18:25)
[2024-02-24 18:52] LABS: 24 Hour Urine Total Volume Random mL; Chloride, Urine 53 mmol/L; Creatinine, Urine per Volume 20 mg/dL; Urine Collection Length Random hr
[2024-02-24 19:00] VITALS: BP 130/73
[2024-02-24] MEDS: SINGULAIR 10 MG PO (21:21)
[2024-02-24] MEDS: LIPITOR 10 MG PO (21:21)
[2024-02-24] MEDS: MIRALAX 17 GRAMS PO (21:22)
[2024-02-24 23:00] VITALS: BP 148/65
[2024-02-25] MEDS: FLAGYL 500 MG 100 IV ×2 (00:01→11:19)
[2024-02-25 03:00] VITALS: BP 109/57
[2024-02-25] MEDS: MAXIPIME 2000 MG IV ×2 (04:58→11:19)
[2024-02-25] MEDS: STERILE WATER FOR INJECTION 10 ML IV ×2 (04:59→11:19)
[2024-02-25 06:00] VITALS: BMI 22.6
[2024-02-25 06:52] LABS: Hemoglobin 12.4 g/dL (12.0-16.0); Mean Corp Hgb Conc. 35.4 g/dL (33.0-37.0); Mean Corpuscular Hgb 29.8 pg (27.0-31.0); Mean Corpuscular Volume 84.1 fL (81.0-99.0); Mean Platelet Volume 8.7 fL (7.4-10.4); Platelet Count 311 10^3/uL (130-400); Red Blood Cell Count 4.16 10^6/uL (4.20-5.40); Red Cell Dist. Width 12.4 % (11.5-14.5); White Blood Cell Count 4.9 10^3/uL (4.8-10.8)
[2024-02-25 07:00] VITALS: BP 123/55
[2024-02-25] MEDS: VENTOLIN NEBULES 2.5 MG INH (07:23)
[2024-02-25 07:26] LABS: ALT (SGPT) 18 U/L (0-35); AST (SGOT) 39 U/L (14-36); Albumin 3.7 g/dl (3.5-5.0); Alkaline Phosphatase 70 U/L (38-126); Blood Urea Nitrogen 9 mg/dl (7-17); Calcium 8.6 mg/dl (8.4-10.2); Carbon Dioxide 25 mmol/L (22-30); Chloride 100 mmol/L (98-107); Estimated Creatinine Clearance 84 ml/min; Glucose 96 mg/dl (70-99); Potassium 3.9 mmol/L (3.5-5.1); Sodium 136 mmol/L (135-145); Total Bilirubin 0.3 mg/dl (0.2-1.3); Total Protein 6.1 g/dl (6.3-8.2); eGFR > 60.00
[2024-02-25 09:08] LABS: Troponin I < 0.012 ng/ml
[2024-02-25] MEDS: NICODERM TRANSDERMAL TRANSDERM (09:22)
[2024-02-25] MEDS: NORVASC 2.5 MG PO (09:25)
[2024-02-25] MEDS: FOLVITE 1 MG PO (09:25)
[2024-02-25 11:00] VITALS: BP 146/77
--- NOTE | 2024-02-25 11:46 | CON.ID ---
Consultation
-
Date/Time Consultation Requested: 10/25/2024 0826
Date/Time Consultation Performed: 02/25/2024 1115
Requesting Provider: Dr. Aceves
Performing Provider: Dr. Blanc
Reason for Consultation: Fever; bacteremia
Chief Complaint / Past History
History of Present Illness
Brooklyn Ceballos is a 63-year-old female being evaluated at the request of Dr. Aceves in regards to bacteremia and fever. History is obtained from chart review, along with patient interview. Additional history was obtained from the patient's
who is at the bedside. The patient reports recently she has been having weight loss and hematochezia, and ultimately underwent a colonoscopy on 02/12/2024. At that time a colonic mass was seen, with biopsies taken. She notes that following
her procedure she had a cough, but notes that her was also ill with some respiratory symptomatology around the same time. His symptomatology lasted only several days, but she notes that she has continued to have cough since the time of her
colonoscopy. She denies having fevers prior to her colonoscopy, but in the first week following her procedure she had temperatures in the 99 degree range. This past week, though, temperatures went up to 101 degrees, and she has had increasing
fatigue. She ultimately called her inshore undersea warfare officer who sent her to the emergency room for further workup.
At this time she notes ongoing cough but without significant sputum production. She denies any abdominal pain. She denies any nausea or vomiting. Since admission, she has had blood cultures taken, which are now positive, and Infectious Diseases
is asked to comment upon further antimicrobial therapy.
Past History
Additional Past Medical History:
HTN
Dyslipidemia
DM
Rectal mass
Additional Past Surgical History:
Colonoscopy
Allergy History:
lisinopril Allergy (Verified 02/22/24 11:22)
cough
Medications Reviewed: Yes
Current Antibiotics:
Cefepime 2 g IV every 8 hours
Metronidazole 500 mg IV every 12 hours
Social History
Tobacco: Smoker (1 pack a day)
Alcohol: Daily (2 to 3 glasses of wine)
Drug: None
Personal:
Living: With Family
Employment: Retired
Family History
Family History: Not Pertinent
Review of Systems
Vital Signs
Temp Pulse Resp BP Pulse Ox
97.5 F 76 16 146/77 95
02/25/24 11:00 02/25/24 11:00 02/25/24 11:00 02/25/24 11:00 02/25/24 11:00
Physical Exam
Physical Exam
Constitutional: No Acute Distress, Comfortable, Chronically Ill and Cachetic (Mild)
Head: Normocephalic
Eyes: Pupils Equal, Pupils Round, No Conjunctival Hemorrhage and Sclera Anicteric
Oral: No Thrush and No Ulcers
Cardiovascular: S1/S2; Negative S3/S4
Pulmonary: Clear and Non Labored; Negative Wheezes, Rales or Rhonchi
Gastrointestinal: Soft, Non Tender, Non Distended, Normal Bowel Sounds, No Rebound and No Guarding
Extremities: Negative Edema, Cyanosis or Erythema
Skin: Warm and Dry; Negative Rash or Jaundice
Neurological: Awake, Alert and Oriented
Psychological: Calm
.
Lab / Diagnostic Study Results
02/25/24 05:11
02/25/24 05:11
Abs Immat Gran (auto) 0.0 10^3/uL (0-0.05) 02/24/24 08:18
Absolute Neuts (auto) 2.9 10^3/uL (1.4-6.5) 02/24/24 08:18
Absolute Lymphs (auto) 0.8 10^3/uL (1.2-3.4) L 02/24/24 08:18
Absolute Monos (auto) 0.4 10^3/uL (0.1-0.6) 02/24/24 08:18
Absolute Basos (auto) 0.0 10^3/uL (0-0.2) 02/24/24 08:18
Immature Gran % 0.2 % (0-0.5) 02/24/24 08:18
Neutrophils % 69.3 % (42.2-75.2) 02/24/24 08:18
Lymphocytes % 19.4 % (20.5-51.1) L 02/24/24 08:18
Monocytes % 10.1 % (1.7-9.3) H 02/24/24 08:18
Eosinophils % 1.0 % (0-6) 02/24/24 08:18
Basophils % 0.0 % (0-2) 02/24/24 08:18
PT 12.9 Sec (11.4-14.6) 02/22/24 20:58
INR 0.92 02/22/24 20:58
Microbiology Results
Micro:
02/22/24 16:55 Blood Culture - Preliminary
Blood/Venous Positive culture in progress
Gram Stain - Preliminary
02/22/24 20:58 Blood Culture - Preliminary
Blood/Venous No Growth in 48 hours- Final report to follow
02/24/24 13:08 Blood Culture - Pending
Blood/Venous
02/22/24 16:55 Blood Culture - Preliminary
Blood/Venous Diptheroids
Gram Stain - Preliminary
02/22/24 11:24 Influenza Types A & B (JYOTHI) - Final
Nasal Swab Negative for Influenza A & B, NAAT
Negative results must be combined with clinical observations
and patient history.
Nucleic Acid Amplification test (NAAT)performed on the
[employer] NOW platform.
Imaging:
02/25/2024 CXR (2 view): Small infiltrate is developed in the posterior lung base best demonstrated on lateral projection. Heart is top normal size no vascular congestion or congestive heart failure noted. Please see full dictation for additional
detail. Film personally viewed.
02/22/[address] abdomen/pelvis with IV contrast: There is stable moderate left hydroureteronephrosis related to obstructing pelvic process/mass which likely represents rectal/colorectal neoplasm and associated left adnexal lesion. No evidence for
abscess or other acute process. Please see full dictation for additional detail.
02/22/2024 CT chest (PE study): No pulmonary embolism. Mild centrilobular emphysema noted.
Assessment / Plan
Fevers
-Since admission, patient has remained afebrile
Positive blood cultures
-Diphtheroids recovered; contaminant
Colonic mass
-Workup in progress
Pulmonary infiltrate noted on most recent CXR
- ? aspiration
HTN
Dyslipidemia
DM
Recommendations:
Discontinue further cefepime and metronidazole.
Check sputum culture if patient able to produce specimen. (Ordered; not yet obtained)
Place on empiric cefdinir and doxycycline.
Would not order procalcitonin as may be abnormal secondary to underlying malignancy.
Continue to follow white count and temperature curve.
Further recommendations as additional data is returned.
--- NOTE | 2024-02-25 11:47 | PTCARENOTE ---
Pt. complaining of worsening shortness of breath and having difficulty taking a deep breath as well as chest tightness. MD updated and CXR, EKG, and add on troponin labs obtained. Pt. continuing to have sob and a dry cough. Pt also now complaining
of sharp pain with the cough. MD notified and this RN expressed concern about a possible PE given pt symptoms, her refusal of heparin shots during her time here, probable cancer dx, and previously elevated d-dimer on 02/21. STAT CT ordered. Pt
instructed to remain on bed rest until she is able to have her CT and the doctor can review the results.
[2024-02-25] MEDS: VENTOLIN NEBULES INH (11:48)
--- NOTE | 2024-02-25 12:12 | W.PN.HOSP.TC ---
Today's Communication/Plan
-
ID consulted
switch to oral abx
f/u CT PE series
sputum cultures
Assessment / Plan
Assessment / Plan
Physical Exam
General: Conversant, Fever (Reported 101.6F in a.m. down to 100 for the past 4 days) and Chills
HEENT: NormoCephalic, Anicteric, PERRLA, [place] Conjunctivae, No Ptosis and Other (Nasal congestion); No Pharyngeal Erythema
Respiratory: Wheezes (Expiratory bilaterally throughout both lung chu); No Rales or Rhonchi
Cardiac: S1/S2 and Regular Rhythm; No Murmur, Rub, Gallop or Peripheral Edema
Breast: Deferred by me
GI: Soft, Non Tender, Non Distended, Normal Bowel Sounds and No Hepatosplenomegaly
Rectal: Deferred by Provider
Genito-urinary: Deferred by me
Musculoskeletal: No Clubbing, No Cyanosis and No Edema
Skin: Warm and Dry; No Rash or Jaundice
Neuro: AO x 3, No Motor Deficits, Nonfocal/grossly intact, Cranial Nerves Intact and No Sensory Deficits; No Slurred Speech, Facial Droop, Tremors or Sedated
Psych: Calm
#Sepsis
-Diptheroids - most likely contaminant
-switch to cefdinir and doxycycline
-ID consulted
-f/u echo
#Chest tightness
#Pulmonary Infiltrate
-CT PE series as refusing HSQ and malignancy
-sputum cultures
#Hyponatremia, improving
� Most likely secondary to hydrochlorothiazide use, continued alcohol drinking(Beer Potomania)
� Stop hydrochlorothiazide
� IVF as needed
� Continue monitoring
#COPD
1-1.5 pack/day x 47 years
-nictone gum
-Continue singular 10 mg at bedtime
-Continue albuterol ProAir 4 times daily as needed
-tobacco cessation
#Alcohol abuse
� Educate on cessation
� Alcohol withdrawal protocol
#Recent Tubular adenoma on colonoscopy 02/12/2024 proximal rectum
-Was due for another biopsy of the distal rectum polyp 10 to 12 mm due to incomplete polyp resection on 02/20/[address] Salguero but held due to reported fever 101 by patient to office-
- COLO performed 02/12/2024 Showing 'A malignant-appearing, intrinsic severe stenosis with oozing ontouch was found in the proximal rectum at 20 cm and was non-traversed' as well as multiple polyps. Biopsy showed tubular adenoma. Patient was
scheduled to have another biopsy performed yesterday for definitive diagnosis but this was delayed due to her fever.
-F/u outpt
#Adenexal mass
-f/u outpt
#HTN�benign
-Continue amlodipine 2.5 mg daily,
-HOLD HCTZ 25 mg daily
#HLD
-Continue Zocor 20 mg at bedtime
#GERD
-Continue Zantac 150 milligrams at bedtime(now is famotidine OTC)
DVT prophylaxis
HSQ
Total time spent on today's encounter was 51 minutes which included time spent in counseling the patient/family regarding diagnosis and treatment plan as listed above, goals of care, and symptom management. Case was discussed with nursing staff,
specialists, and care coordinators/case management. All labs and imaging personally reviewed by me. Remainder the time spent in detailed review of previous records, lab data, imaging, and other medical provider documentation.
Anticipated Discharge: Today
Subjective/Interval History
-
Date of Service: February 25, 2024
chest tightness this am - cxr with left lung base infiltrate
Objective Data
-
Labs:
Laboratory Results
02/25/24
05:11
WBC 4.9
Hgb 12.4
Hct 35.0 L
Plt Count 311
Sodium 136
Potassium 3.9
Chloride 100
Carbon Dioxide 25
BUN 9
Creatinine 0.6
Glucose 96
Calcium 8.6
Total Bilirubin 0.3
AST 39 H
ALT 18
Alkaline Phosphatase 70
Vital Signs:
Vital Signs
Temp Pulse Resp BP Pulse Ox
97.5 F 86 16 146/77 98
02/25/24 11:00 02/25/24 12:04 02/25/24 12:04 02/25/24 11:00 02/25/24 12:04
I&O
02/24/24 02/25/24 02/26/24
06:59 06:59 06:59
Intake Total 540 / 540 240 / 240
Balance 540 / 540 240 / 240
Review of Systems
-
History Source: Patient
All other systems: Not reviewed unless documented
Data Reviewed
-
Diagnostic Radiology: Report Reviewed by me
CT Scan: Report Reviewed by me
Labs: Labs Reviewed by me
[2024-02-25 15:00] VITALS: BP 124/58
[2024-02-25] MEDS: ProAIR HFA INHALER 2 PUFF INH ×2 (15:20→20:57)
[2024-02-25] MEDS: PERIDEX 0.12% ORAL RINSE 15 ML PO (17:10)
[2024-02-25] MEDS: PEPCID 20 MG PO (17:10)
[2024-02-25 19:00] VITALS: BP 141/66
[2024-02-25] MEDS: OMNICEF 300 MG PO (20:20)
[2024-02-25] MEDS: VITAMIN B1 100 MG PO (20:20)
[2024-02-25] MEDS: VIBRAMYCIN 100 MG PO (20:20)
[2024-02-25 20:41] LABS: Troponin I < 0.012 ng/ml
[2024-02-25] MEDS: LIPITOR 10 MG PO (21:15)
[2024-02-25] MEDS: SINGULAIR 10 MG PO (21:15)
[2024-02-25] MEDS: MIRALAX 17 GRAMS PO (21:15)
[2024-02-25 23:00] VITALS: BP 113/52
[2024-02-26 03:00] VITALS: BP 131/63
[2024-02-26 05:23] LABS: Hematocrit 35.8 % (37.0-47.0); Hemoglobin 12.8 g/dL (12.0-16.0); Mean Corp Hgb Conc. 35.8 g/dL (33.0-37.0); Mean Corpuscular Hgb 29.8 pg (27.0-31.0); Mean Corpuscular Volume 83.3 fL (81.0-99.0); Mean Platelet Volume 8.2 fL (7.4-10.4); Platelet Count 294 10^3/uL (130-400); Red Cell Dist. Width 12.3 % (11.5-14.5); White Blood Cell Count 3.9 10^3/uL (4.8-10.8)
[2024-02-26 06:00] VITALS: BMI 22.4
[2024-02-26 06:02] LABS: Troponin I < 0.012 ng/ml
[2024-02-26 06:26] LABS: ALT (SGPT) 18 U/L (0-35); AST (SGOT) 32 U/L (14-36); Albumin 3.6 g/dl (3.5-5.0); Alkaline Phosphatase 71 U/L (38-126); Blood Urea Nitrogen 6 mg/dl (7-17); Calcium 8.9 mg/dl (8.4-10.2); Carbon Dioxide 25 mmol/L (22-30); Chloride 100 mmol/L (98-107); Estimated Creatinine Clearance 84 ml/min; Glucose 106 mg/dl (70-99); Potassium 3.6 mmol/L (3.5-5.1); Sodium 136 mmol/L (135-145); Total Bilirubin 0.3 mg/dl (0.2-1.3); Total Protein 5.9 g/dl (6.3-8.2); eGFR > 60.00
[2024-02-26 07:39] VITALS: BP 128/50
[2024-02-26] MEDS: NORVASC 2.5 MG PO (07:43)
[2024-02-26] MEDS: NICODERM TRANSDERMAL TRANSDERM (07:43)
[2024-02-26] MEDS: OMNICEF 300 MG PO (07:43)
[2024-02-26] MEDS: VIBRAMYCIN 100 MG PO (07:43)
[2024-02-26] MEDS: FOLVITE 1 MG PO (07:43)
[2024-02-26] MEDS: VITAMIN B1 100 MG PO (07:43)
[2024-02-26] MEDS: ProAIR HFA INHALER 2 PUFF INH ×2 (08:07→11:04)
--- NOTE | 2024-02-26 09:18 | PTCARENOTE ---
Pt. continues to refuse heparin shots. Education about risk for DVT and purpose of anticoagulant provided, pt. uninterested.
[2024-02-26 11:23] VITALS: BP 143/55
--- NOTE | 2024-02-26 12:05 | W.PN.HOSP.TC ---
Addendum entered and electronically signed by Bruce Ribera DO 02/26/24 14:00:
CDI clarification: COPD exacerbation ruled out. Hypovolemic hyponatremia
Original Note:
Today's Communication/Plan
-
Follow-up TTE for completeness
Cefdinir and doxycycline for 1 week empirically
Follow-up with OP physicians for colorectal cancer workup and adnexal mass
BMP in 1 week
Assessment / Plan
Assessment / Plan
#Fever of unclear origin
#Pulmonary infiltrate on imaging
-Cannot rule out underlying pneumonia as she did have pulmonary infiltrate, fever here
-Suspect that this may be more related to viral infection, likely nonspecific
-Currently on day 4 of antibiotics here, with cefdinir and doxycycline
-Spoke with ID today, no role for repeating blood cultures
-Plan to continue cefdinir and doxycycline to complete 7 days
-Follow-up TTE for completeness
#Diphtheroid positive blood cultures
-Infectious disease following, likely contaminant
-Echocardiogram pending for completeness
#Euvolemic/hypovolemic hyponatremia
-Most likely secondary to hydrochlorothiazide use as well as beer Potomania
-HCTZ was stopped and admission, received IV fluids as needed
-Sodium has since normalized, euvolemic today
-Hold HCTZ at discharge, repeat BMP in 1 week
#COPD/Asthma
-Significant smoking history with 1-1.5 pack/day x 47 years
-Home medications include albuterol inhaler and montelukast nightly
-Counseled on tobacco cessation, nicotine patches and Nicorette gum at [place]
#Alcohol abuse
-Educate on cessation
-Alcohol withdrawal protocol
-Thiamine and folate supplement
#Recent Tubular adenoma on colonoscopy 02/12/2024 proximal rectum
#Adnexal mass
-Was due for another biopsy of the distal rectum polyp 10 to 12 mm due to incomplete polyp resection on 02/20/[address] Salguero but held due to reported fever 101 by patient to office-
-COLO performed 02/12/2024 Showing 'A malignant-appearing, intrinsic severe stenosis with oozing ontouch was found in the proximal rectum at 20 cm and was non-traversed' as well as multiple polyps. Biopsy showed tubular adenoma.
-Patient was scheduled to have another biopsy performed yesterday for definitive diagnosis but this was delayed due to her fever.
-F/u outpt
#Primary HTN
-No known history of hypertensive systemic disease
-Home medications include HCTZ 25 mg, amlodipine 2.5 mg day
-HCTZ held for hyponatremia, BP remained stable
#HLD
-No known ASCVD history though is at risk with smoking
-Continue Zocor 20 mg at bedtime
#GERD
-Previously on Zantac 150 milligrams at bedtime(now is famotidine OTC)
-No known history of Lira's esophagus or erosive esophagitis
DVT prophylaxis: Subcutaneous heparin
Diet: Regular
CODE STATUS: Full code
Anticipated Discharge: Today
Subjective/Interval History
-
Date of Service: February 26, 2024
Seen and examined at the bedside. No acute events reported overnight. AFVSS this morning, afebrile overnight
Has been afebrile here since 02/22/2024 where she registered 100.7 �F temperature. No leukocytosis. Echocardiogram performed this morning with read pending
She denies any new complaints. Seems unhappy with being in the hospital.
Objective Data
-
Labs:
Laboratory Results
02/26/24
05:17
WBC 3.9 L
Hgb 12.8
Hct 35.8 L
Plt Count 294
Sodium 136
Potassium 3.6
Chloride 100
Carbon Dioxide 25
BUN 6 L
Creatinine 0.6
Glucose 106 H
Calcium 8.9
Total Bilirubin 0.3
AST 32
ALT 18
Alkaline Phosphatase 71
Vital Signs:
Vital Signs
Temp Pulse Resp BP Pulse Ox
99.5 F 77 17 143/55 95
02/26/24 11:23 02/26/24 11:23 02/26/24 11:23 02/26/24 11:23 02/26/24 11:23
I&O
02/25/24 02/26/24 02/27/24
06:59 06:59 06:59
Intake Total 240 / 240 1440 / 1440
Balance 240 / 240 1440 / 1440
Review of Systems
-
History Source: Patient
All other systems: Reviewed and negative
Physical Exam
-
General: Well Developed, No Apparent Distress, Comfortable, Appears Chronically Ill and Other (Thin female, appears older than age)
HEENT: Normocephalic, Atraumatic, Moist Mucous Membranes and Anicteric
Respiratory: Clear to Auscultation and Non Labored Respirations; Negative Wheezes, Rales or Rhonchi
Cardiac: Regular Rhythm and S1/S2; Negative Murmur, Rub or Gallop
GI: Soft, Nontender, Nondistended and Normal Bowel Sounds
Musculoskeletal: No Clubbing, No Cyanosis and No Edema
Skin: Warm, Dry, Rash (Macular erythematous rash of back, resolving; no pruritus or pain) and Normal Turgor
Neuro: AO x 3 and Nonfocal/Grossly Intact; Negative Tremors
Psych: Calm
Data Reviewed
-
Labs: Labs Reviewed by me, Discussed with Physician (Infectious disease), Discussed with Patient and Discussed with Family
--- NOTE | 2024-02-26 13:28 | PN.CDI ---
CDI
- -
CDI:
Physician Documentation Request
Admit Date: 02/22/24 16:44
Dear Doctor Bacilio,
H&P states 'Acute febrile illness unclear concern for Acute On chronic CoPD exacerbation'
Please clarify the following:
____ - COPD exacerbation was present on admission
____ - COPD exacerbation was ruled out
____ - Other
Use of terms such as suspected, likely, concern for, or probable (associated with a specific diagnosis that is being evaluated, monitored, or treated as if it exists) are acceptable and can be coded in the inpatient setting, when documented at the
time of discharge.
Thank you,
Martha Valdez RN, BSN
CDI Specialist
tiger text
Please use your independent medical judgment in providing your response.
--- NOTE | 2024-02-26 13:33 | PN.CDI ---
CDI
- -
CDI:
Physician Documentation Request
Admit Date: 02/22/24 16:44
Dear Doctor Bacilio,
Hospitalist progress notes include a diagnosis of 'Euvolemic/hypovolemic hyponatremia'
Urine osmolality 171, Urine sodium 55
Could you please clarify the diagnosis associated with the low sodium:
Hyponatremia only
SIADH
Other
Use of terms such as suspected, likely, concern for, or probable (associated with a specific diagnosis that is being evaluated, monitored, or treated as if it exists) are acceptable and can be coded in the inpatient setting, when documented at the
time of discharge.
Thank you,
Martha Valdez RN, BSN
CDI Specialist
tiger text
Please use your independent medical judgment in providing your response.
--- NOTE | 2024-02-26 15:00 | W.DCSUMMARY ---
Discharge Summary
Discharge Data
Date of Admission: 02/22/24
Date of Discharge: 02/26/24
-
Pending Results: No
Hospital Course
63-year-old female with COPD, newly diagnosed rectal cancer, HTN, HLD, T2DM, alcohol use, current smoker that presented with fever prior to arrival that lasted for multiple days. Was directed by her PCP to come into the hospital with a temperature
of 101 �F as an outpatient. Initial chest x-ray with subsegmental atelectasis versus scarring though no dense airspace consolidation, subsequent CT with mild centrilobular emphysema though no PE or consolidations. Subsequent chest x-ray showed
interval development of a small posterior left lung base infiltrate suspicious for pneumonia, which was confirmed by subsequent CT scan. Was treated with IV ceftriaxone and doxycycline empirically through the hospitalization. Never required
supplemental oxygen, did not have any leukocytosis though did did have leukopenia at times. Was transition to cefdinir and doxycycline to complete 7 days of antibiotics. Had intermittent hyponatremia on arrival, improved off of HCTZ was given a
BMP for repeat sodium levels in 5 days as an outpatient. Also recommended her to stop taking ranitidine and transition to famotidine. Prescribed folic acid and thiamine for chronic alcohol use. Prescribed nicotine patches and Nicorette gum for
smoking cessation.
Discharge Plan
-
Patient Disposition: Home (Routine Discharge)
Discharge Diagnosis/Procedures: Fever
Condition: Fair
Diet: No restrictions
Activity: As tolerated
Driving Restrictions: No driving for 24 hours
Bathing Restrictions: None
Blood Work: BMP in 5 days to check sodium levels
Activity Restrictions/Additional Instructions:
Schedule follow-up appointment with your family physician, should be seen in office within 1 to 2 weeks of discharge from the hospital
Schedule/maintain follow-up appointments with your primary physicians as outpatient
Instructions: Fever in adults - Discharge instructions
Referrals:
Sheila Pack MD [Family Provider] -
Additional Discharge Medication Instructions: Continue cefdinir 300 mg every 12 hours and doxycycline 100 mg every 12 hours for 3 more days after discharge (last day 03/01/2024)
Stop taking ranitidine as this medication was found to be associated with cancers. Start using famotidine twice daily as needed for acid reflux symptoms
Continue folic acid and thiamine supplement
Use nicotine patches and Nicorette gum as directed for smoking cessation
Stop taking hydrochlorothiazide until you are seen by your family doctor or physician that prescribed HCTZ
Prescriptions:
New
folic acid 1 mg Tablet
1 mg PO DAILY 30 Days Qty: 30 0RF
nicotine 21 mg/24 hr Patch 24 Hour
21 mg transdermal DAILY 30 Days Qty: 28 0RF
nicotine (polacrilex) 2 mg Gum
4 mg PO Q4HPRN PRN (Reason: tobacco cessation) 30 Days Qty: 50 0RF
cefdinir 300 mg Capsule
300 mg PO Q12 4 Days Qty: 8 0RF
famotidine 20 mg Tablet
20 mg PO DAILY@1700 PRN (Reason: Gastrointestinal issue) 30 Days Qty: 60 0RF
doxycycline hyclate 100 mg Capsule
100 mg PO Q12 4 Days Qty: 8 0RF
thiamine HCl (vitamin B1) 100 mg Tablet
100 mg PO BID 30 Days Qty: 60 0RF
Continued
montelukast [Singulair] 10 mg Tablet
10 mg PO HS
acetaminophen [Tylenol] 325 mg Tablet
650 mg PO Q6HPRN PRN (Reason: fever)
polyethylene glycol 3350 [Miralax] 17 gram Powder In Packet
17 g PO HS
amlodipine [Norvasc] 2.5 mg Tablet
2.5 mg PO DAILY
simvastatin [Zocor] 20 mg Tablet
20 mg PO HS
bisacodyl [Dulcolax (bisacodyl)] 5 mg Tablet,Delayed Release (Dr/Ec)
5 mg PO DAILYPRN PRN (Reason: only of miralax does not work)
albuterol sulfate 90 mcg/actuation Hfa Aerosol Inhaler
2 puff INHALATION R QIDPRN PRN (Reason: sob)
Discontinued
ranitidine HCl [Zantac] 150 mg Tablet
150 mg PO HS
hydrochlorothiazide 25 mg Tablet
25 mg PO DAILY
Discharge Orders:
Discharge Patient (As Directed); Ordered 02/26/24
Ordered By: Bruce Ribera
Discharge Date and Time
Print Language: MAORI
[2024-02-26 15:08] VITALS: BP 146/62
[2024-02-26] MEDS: ProAIR HFA INHALER INH (15:28)
--- NOTE | 2024-02-26 16:09 | CM ---
MD entered discharge order.
Spoke with pt in room .IMM reviewed with pt IMM signed on chart.
Pt said her Cody can drive her.
She said she did not want VN nor [facility] recourses.
PLAN Home no needs
== END 2024-02-26 15:29 | disposition home or self-care (01) | DRG 194 ==
LOC: 3 WEST ACU 16:44
PROVIDERS: Clinical Nurse Specialist Family Health; Emergency Medicine; Physician Assistant; ADMITTING PHYSICIAN Internal Medicine; ATTENDING PHYSICIAN Internal Medicine; CONSULT PHYSICIAN Internal Medicine Infectious Disease; EMERGENCY PHYSICIAN Student in an Organized Health Care Education/Training Program; FAMILY PHYSICIAN Internal Medicine
DX: J18.9 Pneumonia, unspecified organism (principal); E87.1 Hypo-osmolality and hyponatremia; J44.0 Chronic obstructive pulmonary disease with (acute) lower respiratory infection; E11.9 Type 2 diabetes mellitus without complications; J43.2 Centrilobular emphysema; E78.5 Hyperlipidemia, unspecified; D72.819 Decreased white blood cell count, unspecified; I10 Essential (primary) hypertension; E86.1 Hypovolemia; D12.8 Benign neoplasm of rectum; K21.9 Gastro-esophageal reflux disease without esophagitis; F17.210 Nicotine dependence, cigarettes, uncomplicated; Z79.899 Other long term (current) drug therapy; Z20.822 Contact with and (suspected) exposure to COVID-19
CPT/HCPCS: 71046; 71275; 74177; 80053; 80306; 81003; 82010; 82077; 82436; 82977; 83735; 83935; 84100; 84300; 84443; 84484; 85025; 85027; 85379; 85610; 85730; 87040; 87205; 87502; 87811; 93005; 93306; 94640; 96360; 97162; 97166; 99285; Q9967

== ENCOUNTER → 2024-02-28 11:55 | Outpatient (REF) | payer MEDICARE, BC, SELFPAY | LOC: MRI 3T 11:55 | PROVIDERS: ATTENDING PHYSICIAN Surgery; FAMILY PHYSICIAN Internal Medicine | DX: C19 Malignant neoplasm of rectosigmoid junction (principal) | CPT/HCPCS: 72197; A9575 ==

== ENCOUNTER → 2024-02-29 10:04 | Outpatient (REF) | payer BC, MEDICARE, SELFPAY | LOC: PAVMRI 10:04 | PROVIDERS: ATTENDING PHYSICIAN Internal Medicine Gastroenterology; FAMILY PHYSICIAN Internal Medicine | DX: K83.8 Other specified diseases of biliary tract (principal) | CPT/HCPCS: 74181 ==

== ENCOUNTER 2024-03-06 07:01 | Day surgery (SDC) | payer MEDICARE, BC, SELFPAY | END 2024-03-06 10:16 | disposition home or self-care (01) | LOC: GI 07:01 | PROVIDERS: ATTENDING PHYSICIAN Surgery | DX: Z01.818 Encounter for other preprocedural examination (principal); D49.0 Neoplasm of unspecified behavior of digestive system; K56.691 Other complete intestinal obstruction; D12.8 Benign neoplasm of rectum; C19 Malignant neoplasm of rectosigmoid junction | CPT/HCPCS: 45338; 45331; 45335; 88305; 88342 ==

== ENCOUNTER 2024-03-07 11:22 | Inpatient (IN) | payer MEDICARE, BC, SELFPAY ==
[2024-03-04 10:53] LABS: Hematocrit 42.7 % (37.0-47.0); Hemoglobin 14.7 g/dL (12.0-16.0); Mean Corp Hgb Conc. 34.4 g/dL (33.0-37.0); Mean Corpuscular Hgb 29.4 pg (27.0-31.0); Mean Corpuscular Volume 85.4 fL (81.0-99.0); Mean Platelet Volume 8.5 fL (7.4-10.4); Platelet Count 667 10^3/uL (130-400); Red Cell Dist. Width 12.6 % (11.5-14.5); White Blood Cell Count 8.4 10^3/uL (4.8-10.8)
[2024-03-04 11:06] LABS: INR 0.95
[2024-03-04 11:07] LABS: APTT 28.1 Sec (23.4-35.0)
[2024-03-04 11:15] LABS: ALT (SGPT) 23 U/L (0-35); AST (SGOT) 26 U/L (14-36); Albumin 4.7 g/dl (3.5-5.0); Alkaline Phosphatase 76 U/L (38-126); Blood Urea Nitrogen 11 mg/dl (7-17); Calcium 9.9 mg/dl (8.4-10.2); Carbon Dioxide 25 mmol/L (22-30); Chloride 100 mmol/L (98-107); Glucose 104 mg/dl (70-99); Potassium 4.8 mmol/L (3.5-5.1); Sodium 136 mmol/L (135-145); Total Bilirubin 0.6 mg/dl (0.2-1.3); Total Protein 7.5 g/dl (6.3-8.2); eGFR > 60.00
[2024-03-04 12:06] LABS: Glycohemoglobin (HgbA1c) 6.2 % (4.0-5.6)
[2024-03-04 14:03] VITALS: BMI 20.8
--- NOTE | 2024-03-05 15:34 | PTCARENOTE ---
Plt [phone], Brenda at Dr. Salguero's office made aware.
[2024-03-07] VITALS (13 sets, daily range): BP systolic 114–141; BP diastolic 51–65; BMI 20.8
[2024-03-07 11:35] LABS: Glucose - Point of Care 80 mg/dl (70-99)
[2024-03-07] MEDS: HEPARIN 5000 UNITS SC (11:43)
[2024-03-07] MEDS: TYLENOL 1000 MG PO (11:44)
[2024-03-07] MEDS: NEURONTIN 600 MG PO (11:44)
[2024-03-07] MEDS: ENTEREG 12 MG PO (11:44)
[2024-03-07] MEDS: NORMOSOL-R/PLASMALYTE-A 1000 IV ×2 (11:46→17:20)
--- NOTE | 2024-03-07 15:08 | W.IMMPOSTOP ---
Surgical Immed Post Op Note
-
Primary Surgeon: Nadia Salguero MD
Assisting Surgeon: STEVE Salgado; CIARAN Salazar
Pre-op Diagnosis: rectosigmoid junction cancer/rectal mass with impending large bowel obstruction
Post-op Diagnosis: same
Procedure Performed: robotic sigmoid colostomy creation (end-loop De La Garza type)
Anesthesia Type: general plus local
Specimen / Cultures: none
Estimated Blood Loss: 20 cc
Complications: no immediate
Operative Findings: 1) rectosigmoid junction/upper rectal fullness (intraperitioneal) attacked to left ovary and ?left pelvic brim 2) redundant upstream sigmoid 3) no obvious liver or peritoneal metastases seen
L double J stent placed by Dr. Crowe.
Martinez in bladder.
Will send to med surg and consult hospitalist particularly in light of her pulmonary issues.
--- NOTE | 2024-03-07 15:35 | HPS.HSE ---
Family Physician
-
Family Physician: Sheila Pack
Chief Complaint
-
Post rectosigmoid tumor removal
History of Present Illness
63-year-old female status post rectosigmoid tumor removal today 03/07/2024 by colorectal. She had this rectosigmoid tumor sounds on a colonoscopy on 02/12/2024. She had recent admission 02/21 - 02/26/2024 secondary to fever which eventually showed a
small posterior left lung base infiltrate on CT suspicious for pneumonia. She was treated with IV Rocephin and doxycycline throughout her stay. She did not require any oxygen and did not have any leukocytosis during her stay. She was transition
to cefdinir and doxycycline to complete 7-day course of antibiotics she was prescribed folic acid and thiamine for chronic alcohol use and prescribed nicotine patches with Nicorette gum for smoking cessation
Medical History
Allergies / Home Medications
Allergies reflects when Allergies were last updated in [facility].
Home Medications with original date entered in [facility]
Physical Exam
Vital Signs
Vital Signs
Temp Pulse Resp BP Pulse Ox
97.7 F 76 13 127/64 100
03/07/24 15:05 03/07/24 15:15 03/07/24 15:15 03/07/24 15:15 03/07/24 15:15
Laboratory Results
-
Laboratory Results
PT 13.0 Sec (11.4-14.6) 03/04/24 09:09
INR 0.95 03/04/24 09:09
APTT 28.1 Sec (23.4-35.0) 03/04/24 09:09
Total Bilirubin 0.6 mg/dl (0.2-1.3) 03/04/24 09:09
AST 26 U/L (14-36) 03/04/24 09:09
ALT 23 U/L (0-35) 03/04/24 09:09
Alkaline Phosphatase 76 U/L (38-126) 03/04/24 09:09
Impression/Plan
-
Impression/plan:
Admit to
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
#Recent Tubular adenoma on colonoscopy 02/12/2024 proximal rectum
COLO performed 02/12/2024 Showing 'A malignant-appearing, intrinsic severe stenosis with oozing ontouch was found in the proximal rectum at 20 cm and was non-traversed' as well as multiple polyps. Biopsy showed tubular adenoma. Patient was
scheduled to have another biopsy performed yesterday for definitive diagnosis but this was delayed due to her fever.-Was due for another biopsy of the distal rectum polyp 10 to 12 mm due to incomplete polyp resection on 02/20/[address] Salguero but
held due to reported fever 101 by patient to office
Recent small posterior left lung base infiltrate on CT suspicious for pneumonia.
- She was treated with IV Rocephin and doxycycline throughout her stay. She did not require any oxygen and did not have any leukocytosis during her stay.
She was transition to cefdinir and doxycycline to complete 7-day course of antibiotics which should have ended on 03/04/2024
Chronic COPD�no acute exacerbation
#Nicotine abuse
-1-1.5 pack/day x 47 years
-Continue nicotine 21 mg patch
-Continue singular 10 mg at bedtime
-Continue albuterol ProAir 4 times daily as needed
# History of hyponatremia secondary to beer Poto pietro
NA 136-stable will monitor
Patient drinks 375 mL wine daily
-HOLD HCTZ 25 mg daily
-
#Alcohol abuse
Drinks 375 mL wine daily last drink was 6 days ago 02/16/2024
-MSAs screen with protocol
-IV thiamine, IV folate
-Cessation advised
#HTN�benign
-BP 176/55
-Continue amlodipine 2.5 mg daily,
-HOLD HCTZ 25 mg daily
#HLD
-Continue Zocor 20 mg at bedtime
#GERD
-Continue Zantac 150 milligrams at bedtime(now is famotidine OTC)
DVT prophylaxis
SCDs
Full code per patient states Mike Anne is her legal
[2024-03-07 15:53] LABS: % Basophils 0.3 % (0-2); % Eosinophils 0.1 % (0-6); % Immature Granulocytes 0.8 % (0-0.5); % Lymphocytes 3.8 % (20.5-51.1); % Monocytes 0.8 % (1.7-9.3); % Neutrophils 94.2 % (42.2-75.2); Absolute Immature Granulocytes 0.1 10^3/uL (0-0.05); Absolute Lymphocytes 0.6 10^3/uL (1.2-3.4); Absolute Monocytes 0.1 10^3/uL (0.1-0.6); Absolute Neutrophils 14.5 10^3/uL (1.4-6.5); Hematocrit 38.2 % (37.0-47.0); Hemoglobin 13.1 g/dL (12.0-16.0); Mean Corp Hgb Conc. 34.3 g/dL (33.0-37.0); Mean Corpuscular Hgb 29.6 pg (27.0-31.0); Mean Corpuscular Volume 86.2 fL (81.0-99.0); Nucleated Red Blood Cells % 0 %; Platelet Count 503 10^3/uL (130-400); Red Blood Cell Count 4.43 10^6/uL (4.20-5.40); Red Cell Dist. Width 12.6 % (11.5-14.5); White Blood Cell Count 15.4 10^3/uL (4.8-10.8)
--- NOTE | 2024-03-07 16:03 | CON.HOSP ---
Addendum entered and electronically signed by Javad Stinson MD 03/07/24 16:41:
leukocytosis. No signs of fever. Monitor
Addendum entered and electronically signed by Javad Stinson MD 03/07/24 16:36:
I saw and examined the patient.
The STOCK MIXER or PA's note was reviewed and I agree with the note.
Comment:. 63-year-old female with past medical history of rectosigmoid mass, hypertension, hyperlipidemia, GERD, COPD came to the hospital for robotic sigmoid colostomy creation. Medicine is consulted for medical management. Nebulizer treatment
as needed for shortness of breath or wheezing. Start p.o. BP meds. Diet per primary team. Okay for nicotine gum. Alcohol withdrawal protocol
General: No acute distress
HEENT: Normocephalic, PERRLA
Respiratory: Clear; Negative Wheezes or Rales
Cardiac: S1/S2 and Regular Rhythm; Negative Murmur, Rub, Peripheral Edema or Calf Tenderness
GI: Soft, Non Tender, Non Distended, Normal Bowel Sounds and Other (Colostomy left side abdomen multiple robotic incisions right side abdomen)
Genito-urinary: Martinez Catheter (Draining yellow in color)
Musculoskeletal: No edema
Neuro: AO x 3 and No Motor Deficits; Negative Slurred Speech
Psych: Calm (But agitated easily)
Original Note:
Family Physician
-
Family Physician: Sheila Pack
Chief Complaint
-
Status post colostomy
History of Present Illness
63-year-old female recently diagnosed with rectosigmoid mass via colonoscopy on 02/12/2024. At that time they were unable to resect the entire area and she was referred to surgery however she had developed fevers of unknown source she was admitted to
the hospital on 02/22/2024 for fevers thought to be presumed left lower lobe pneumonia on CT she was treated with IV antibiotics and given prescription for doxycycline and cefdinir. She reports she only took a couple days worth as she developed a
head to toe rash and her PCP took her off of them. She does states she has tolerated cephalosporins and penicillins in the past without any issues.
Today she is status post left-sided colostomy by Dr. Salguero.
She reports since admission she has stopped smoking and is using Nicorette gum versus the patch. She also reports she was only drinking 1 glass of wine on Fridays however her story has been inconsistent and she was drinking 375 mL wine daily. Due
tRecent Tubular adenoma on colonoscopy 02/12/2024 proximal rectum
-Was due for another biopsy of the distal rectum polyp 10 to 12 mm due to incomplete polyp resection on 02/20/[address] Salguero but held due to reported fever 101 by patient to office.
She has past medical history of alcohol abuse wine, hyponatremia from wine and prior HCTZ, COPD, nicotine abuse, tubular adenoma proximal rectum, HTN, HLD, GERD.
Medical History
Past Medical History
Past Medical History: Reports Other
Additional Past Medical History:
alcohol abuse wine
hyponatremia from wine and prior HCTZ
COPD
nicotine abuse
tubular adenoma proximal rectum 02/12/2024 colonoscopy
Rectosigmoid mass found on colonoscopy 02/12/2024
HTN
HLD,
GERD.
Past Surgical History: Reports Other
Additional Past Surgical History:
Colostomy 02/12/2024
Social History
Tobacco: Former Smoker (Stopped smoking 02/22/2024 is using Nicorette gum)
Alcohol: Former (Daily 375 mL wine inconsistent with 1 glass of wine on Fridays)
Drug: None
Personal:
Living: With Family ()
Employment: Retired
Family History
Family History: Reviewed & Not Pertinent
Allergies / Home Medications
Allergies reflects when Allergies were last updated in [employer].
Home Medications with original date entered in [employer]
Allergy/Medication List:
Allergies
Allergy/AdvReac Type Severity Reaction Status Date / Time
cefdinir Allergy Rash Verified 03/07/24 11:09
doxycycline Allergy Rash Verified 03/07/24 11:09
lisinopril Allergy cough/vomit Verified 03/07/24 11:09
ing
Home Medications
acetaminophen 325 mg tablet (Tylenol) 650 mg PO Q6HPRN PRN fever/pain 02/22/24
albuterol sulfate 90 mcg/actuation aerosol inhaler 2 puff inhalation R QIDPRN PRN sob 02/22/24
amlodipine 2.5 mg tablet (Norvasc) 2.5 mg PO DAILY Blood Pressure 02/22/24
bisacodyl 5 mg tablet,delayed release (Dulcolax (bisacodyl)) 5 mg PO DAILYPRN PRN only of miralax does not work 02/22/24
montelukast 10 mg tablet (Singulair) 10 mg PO .@ 1999 asthma 02/22/24
polyethylene glycol 3350 17 gram oral powder packet (Miralax) 17 g PO .@ 1999 Constipation 02/22/24
simvastatin 20 mg tablet (Zocor) 20 mg PO .@ 1999 High Cholesterol 02/22/24
famotidine 20 mg tablet 20 mg PO DAILY@1700 PRN Gastrointestinal issue 1 month #60 tabs 02/26/24
folic acid 1 mg tablet 1 mg PO DAILY Supplement 1 month #30 tabs 02/26/24
nicotine (polacrilex) 2 mg gum 4 mg PO Q4HPRN PRN tobacco cessation 1 month #50 ea 02/26/24
thiamine HCl (vitamin B1) 100 mg tablet 100 mg PO BID Supplement 1 month #60 tabs 02/26/24
Fish Oil 1 cap PO .HS @ 199903/01/24
chlorhexidine gluconate 0.12 % mouthwash 15 ml mucous membrane .@ 199903/01/24
diphenhydramine 25 mg-acetaminophen 500 mg tablet (Tylenol PM Extra Strength) 1 tab PO .HS @ 1999 PRN sleep 03/01/24
melatonin 2 mg-soy iso 56 mg-black cohosh 40 mg-calcium 112 mg tablet (Estroven Sleep Cool) 1 tab PO .HS @ 199903/01/24
metronidazole 500 mg tablet 500 mg PO DIRECTED pre op 03/01/24
neomycin 500 mg tablet 1 g PO DIRECTED pre op 03/01/24
sodium chloride 5 % eye ointment (Barry 128) 1 applic ophthalmic (eye) .HS @199903/01/24
sodium sul 1.479 gram-potas ch 0.188 gram-magnes sul 0.225 gram tablet (Sutab) 0 tab PO PER PKG DIR per op 03/01/24
Review of Systems
-
History Source: Patient
A 12 point Review of Systems was completed except as noted: Yes
Constitutional: Denies Fever or Chills
EENT: Denies Sore Throat or Runny Nose
Respiratory: Denies Cough or Trouble Breathing
Cardiac: Denies Chest Pain, Diaphoresis, Palpitations or Syncope
Abdomen/GI: Denies Abdominal Pain, Nausea, Vomiting, Diarrhea, Constipated, Bloody Stools or Black Stools
: Denies Dysuria, Frequency, Flank Pain, Incontinence, Difficulty Voiding or Urgency
Musculoskeletal: Denies Joint Pain or Edema
Skin: Denies Itching or Rash
Neurological: Denies Dizzy or Headache
Endocrine: Reports No Symptoms
Hematologic/Lymphatic: Reports No Symptoms
Psych: Reports Other (Easily agitated)
Physical Exam
Vital Signs
Vital Signs
Temp Pulse Resp BP Pulse Ox
97.7 F 90 22 134/60 96
03/07/24 15:05 03/07/24 15:45 03/07/24 15:45 03/07/24 15:45 03/07/24 15:45
Physical Exam
General: Other (Easily agitated); Negative Pain, Fever or Chills
HEENT: Normocephalic, PERRLA and Other (Dry oral mucosa status post surgery)
Respiratory: Clear; Negative Wheezes or Rales
Cardiac: S1/S2 and Regular Rhythm; Negative Murmur, Rub, Peripheral Edema or Calf Tenderness
Breast: Deferred by me
GI: Soft, Non Tender, Non Distended, Normal Bowel Sounds and Other (Colostomy left side abdomen multiple robotic incisions right side abdomen with Dermabond in place no distention no palpable abdominal pain at current time)
Rectal: Deferred by Provider
Genito-urinary: Martinez Catheter (Draining yellow in color)
Musculoskeletal: No Clubbing and No Cyanosis
Skin: Warm and Dry; Negative Rash
Neuro: AO x 3 and No Motor Deficits; Negative Slurred Speech, Facial Droop, Tremors or Sedated
Psych: Calm (But agitated easily)
Laboratory Results
-
Laboratory Results
03/07/24 15:44
PT 13.0 Sec (11.4-14.6) 03/04/24 09:09
INR 0.95 03/04/24 09:09
APTT 28.1 Sec (23.4-35.0) 03/04/24 09:09
Total Bilirubin 0.6 mg/dl (0.2-1.3) 03/04/24 09:09
AST 26 U/L (14-36) 03/04/24 09:09
ALT 23 U/L (0-35) 03/04/24 09:09
Alkaline Phosphatase 76 U/L (38-126) 03/04/24 09:09
Data Reviewed
-
Lab Data: Labs Reviewed
Impression / Plan
-
Medical consultation
Impression/plan:
Admit to [facility]
#Status post colostomy due to rectosigmoid tumor today 03/07/2024
#Recent Tubular adenoma on colonoscopy 02/12/2024 proximal rectum
Patient with left-sided colostomy created for bowel excretion
-Patient reports was told by colorectal surgery she will need chemo to shrink existing mass then surgery to remove residual if chemo works(will confirm with surgeon)
-Patient may have clear liquids with oral medication
-IV Dilaudid, IV Toradol listed for pain control per admitting team
-IV Zofran as needed
COLO performed 02/12/2024 Showing 'A malignant-appearing, intrinsic severe stenosis with oozing ontouch was found in the proximal rectum at 20 cm and was non-traversed' as well as multiple polyps.
Biopsy showed tubular adenoma. Patient was scheduled to have another biopsy performed yesterday for definitive diagnosis but this was delayed due to her fever
.-Was due for another biopsy of the distal rectum polyp 10 to 12 mm due to incomplete polyp resection on 02/20/[address] Salguero but held due to reported fever 101 by
patient to office
#Recent small posterior left lung base infiltrate on CT suspicious for pneumonia.
- She was treated with IV Rocephin and doxycycline throughout her stay. She did not require any oxygen and did not have any leukocytosis during her stay.
-She was transition to cefdinir and doxycycline to complete 5-dhu-iplykul states she developed head to toe rash so her PCP had her stop both medications however she has tolerated Keflex and penicillins in the past
-Patient denies any cough, fever, shortness of breath
#Chronic COPD�no acute exacerbation
# Prior nicotine abuse
-1-1.5 pack/day x 47 years stopped February 2024
-Patient refuses nicotine patch
-Patient may use nicotine gum here if not present may use own nicotine gum
-Continue singular 10 mg at bedtime
-Continue albuterol ProAir 4 times daily as needed
# History of hyponatremia secondary to beer Poto pietro
NA 136-stable will monitor
Patient drinks 375 mL wine daily
-Follow CMP
-
#Alcohol abuse hx
Drinks 375 mL wine daily last drink was on 02/16/2024, however she states she has 1 glass of wine on Fridays since story is inconsistent we will place patient on an MSAS screen with protocol
-MSAs screen with protocol
-Resume IV thiamine, IV folate
#HTN�benign
-BP 176/55
-Continue amlodipine 2.5 mg daily,
-Hydralazine 10 mg IV every 6 hours as needed SBP >165
#HLD
-Continue Zocor 20 mg at bedtime
#GERD
-Continue Zantac 150 milligrams at bedtime(now is famotidine OTC)
DVT prophylaxis
SCDs
Full code per patient states Mike Anne is her legal
[2024-03-07 16:08] LABS: Blood Urea Nitrogen 7 mg/dl (7-17); Calcium 8.3 mg/dl (8.4-10.2); Carbon Dioxide 21 mmol/L (22-30); Chloride 101 mmol/L (98-107); Estimated Creatinine Clearance 89 ml/min; Glucose 146 mg/dl (70-99); Potassium 3.8 mmol/L (3.5-5.1); Sodium 135 mmol/L (135-145); eGFR > 60.00
[2024-03-07] MEDS: NSS (PRESERVATIVE FREE) 10 ML IV (16:40)
[2024-03-07] MEDS: PROTONIX IV 40 MG IV (16:40)
[2024-03-07] MEDS: TYLENOL PO (17:20)
[2024-03-07] MEDS: NICORETTE 2 MG PO (17:36)
--- NOTE | 2024-03-07 18:00 | PTCARENOTE ---
pt admitted to room 2120 at 1700 from the PACU. pt arrived via bed, awake and alert. oriented to room, environment and plan of care with verbalized understanding. admission database and assessment completed as documented. tolerating ice chips
and sips of water. offering no c/o pain-requesting nicotine gum-provided per MAR. at bedside. care ongoing.
[2024-03-07] MEDS: SINGULAIR 10 MG PO (19:56)
[2024-03-07] MEDS: TORADOL 15 MG IV (19:56)
[2024-03-07] MEDS: VITAMIN B1 100 MG PO (19:56)
[2024-03-07] MEDS: LIPITOR 10 MG PO (19:57)
[2024-03-07] MEDS: TYLENOL 650 MG PO ×2 (19:57→23:39)
[2024-03-07] MEDS: DILAUDID 0.25 MG IV (23:44)
[2024-03-08] MEDS: TORADOL 15 MG IV ×4 (01:07→21:14)
[2024-03-08 03:15] VITALS: BP 121/57
[2024-03-08] MEDS: TYLENOL 650 MG PO ×6 (03:42→23:30)
[2024-03-08] MEDS: NORMOSOL-R/PLASMALYTE-A 1000 IV ×2 (06:20→18:03)
[2024-03-08] MEDS: NICORETTE 2 MG PO (06:22)
[2024-03-08 06:24] LABS: % Basophils 0.1 % (0-2); % Immature Granulocytes 0.6 % (0-0.5); % Lymphocytes 6.3 % (20.5-51.1); % Monocytes 2.2 % (1.7-9.3); % Neutrophils 90.8 % (42.2-75.2); Absolute Immature Granulocytes 0.1 10^3/uL (0-0.05); Absolute Lymphocytes 0.7 10^3/uL (1.2-3.4); Absolute Monocytes 0.2 10^3/uL (0.1-0.6); Absolute Neutrophils 9.3 10^3/uL (1.4-6.5); Hematocrit 37.2 % (37.0-47.0); Hemoglobin 12.7 g/dL (12.0-16.0); Mean Corp Hgb Conc. 34.1 g/dL (33.0-37.0); Mean Corpuscular Hgb 29.1 pg (27.0-31.0); Mean Corpuscular Volume 85.1 fL (81.0-99.0); Mean Platelet Volume 8.3 fL (7.4-10.4); Nucleated Red Blood Cells % 0 %; Platelet Count 498 10^3/uL (130-400); Red Blood Cell Count 4.37 10^6/uL (4.20-5.40); Red Cell Dist. Width 12.6 % (11.5-14.5); White Blood Cell Count 10.3 10^3/uL (4.8-10.8)
[2024-03-08 06:51] LABS: Blood Urea Nitrogen 6 mg/dl (7-17); Carbon Dioxide 24 mmol/L (22-30); Chloride 103 mmol/L (98-107); Estimated Creatinine Clearance 89 ml/min; Glucose 124 mg/dl (70-99); Potassium 4.3 mmol/L (3.5-5.1); Sodium 137 mmol/L (135-145); eGFR > 60.00
--- NOTE | 2024-03-08 08:00 | WOUNDNOTE ---
[facility] RN note: Patient s/p colostomy. Stoma pink and budded. Appliance intact. Small amount of liquid stool in pouch. Instructed patient how to empty pouch, how to cut wafer and snap on pouch. Ostomy supplies (Miguel wafer # [id number], Iris seal,
Miguel pouch # [id number]) and colostomy teaching folder given. Patient stated can be called to be included with ostomy teaching. Plan to change pouch Monday or Monday. Coccyx crease mild red and intact. Heels blanchable mild red and intact.
Patient turned to R semi side lying position with help from RN Cadence. Heels off bed with pillow. Air chair cushion given. Sacral shaped silicone border foam maintained. Patient stated she will be getting out of bed today.
[2024-03-08 08:15] VITALS: BP 127/54
[2024-03-08] MEDS: FOLVITE 1 MG PO (08:17)
[2024-03-08] MEDS: NSS (PRESERVATIVE FREE) 10 ML IV (08:17)
[2024-03-08] MEDS: PROTONIX IV 40 MG IV (08:17)
[2024-03-08] MEDS: ENTEREG 12 MG PO ×2 (08:17→21:13)
[2024-03-08] MEDS: VITAMIN B1 100 MG PO ×2 (08:18→21:14)
--- NOTE | 2024-03-08 10:03 | CM ---
Reviewed the chart notes and spoke with the patient at the bedside. Patient is s/p robotic sigmoid colostomy creation. The patient resides with her spouse in a one story home with two steps to enter via garage. The patient reports no DME/VN/SNF
in the past. The patient confirmed [facility] choice [facility]. Discussed VN agencies with the patient. The patient selected [facility]N. Referral sent via [facility]. CM continues to be available to patient/family and is
monitoring medical plan for needs at discharge.
Plan: Discharge to home with VN services when medically stable.
--- NOTE | 2024-03-08 11:09 | W.PN.CRS1 ---
Today's Communication / Plan
-
Full liquids
DC Martinez
Lovenox
Wound care
Assessment/Plan
-
POD#1 robotic sigmoid colostomy creation (end-loop De La Garza type)
-Labs and vitals normal
-Advance diet to full liquids
-Discontinue Martinez
-Out of bed with physical therapy
-Teds and SCDs in place for DVT prophylaxis. Add Lovenox.
-Wound RN for stoma management
-Okay to shower
-Pain control: Tylenol and Toradol standing, Dilaudid as needed
-Appreciate hospitalist
Subjective Data
Procedure
03/07/24- robotic sigmoid colostomy creation (end-loop De La Garza type)
Subjective Data
Date of Service: March 08, 2024
Patient states she has some pain in her abdomen when she coughs. Otherwise her pain is well-controlled. She has no nausea or vomiting. She is hungry. She does not have any flatus.
Objective Data
-
Vital Signs
Temp Pulse Resp BP Pulse Ox
97.8 F 73 18 127/54 96
03/08/24 08:15 03/08/24 08:15 03/08/24 08:15 03/08/24 08:15 03/08/24 08:15
Intake & Output
03/07/24 03/08/24 03/09/24
06:59 06:59 06:59
Intake Total 1200 / 1200
Output Total 1874
Balance -675 / -675
Intake:
Oral fluids 240 / 240
IV fluids (Total) 960 / 960
Normosol 60 / 60
Output:
Urine, Martinez 1874
Other:
Number of unmeasured liquid
stools
Colostomy 50
Lab Results
03/08/24 05:25
03/08/24 05:25
Physical Exam
-
General: No Acute Distress and AOx3
Abdomen: Soft, Non Distended, Non Tender and Other (Colostomy warm and pink with flatus in the bag)
Skin: Warm and Dry
Incision: Clear, Dry, Intact
[2024-03-08 11:27] VITALS: BP 125/56
--- NOTE | 2024-03-08 12:52 | W.PN.HOSP.TC ---
Today's Communication/Plan
-
Monitor vital signs see plan
Now on full liquid diet
Continue DuoNebs as needed. Reports does not use any maintenance inhaler at home.
Restart amlodipine when blood pressure is high
Continue statin
Assessment / Plan
Assessment / Plan
General: No acute distress
HEENT: Normocephalic, PERRLA
Respiratory: Clear; Negative Wheezes or Rales
Cardiac: S1/S2 and Regular Rhythm; Negative Murmur, Rub, Peripheral Edema or Calf Tenderness
GI: Soft, Non Tender, Non Distended, Normal Bowel Sounds and Other (Colostomy left side abdomen multiple robotic incisions right side abdomen)
Genito-urinary: Martinez Catheter (Draining yellow in color)
Musculoskeletal: No edema
Neuro: AO x 3 and No Motor Deficits; Negative Slurred Speech
Psych: Calm
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
#Recent Tubular adenoma on colonoscopy 02/12/2024 proximal rectum
Patient with left-sided colostomy created for bowel excretion
-Patient reports was told by colorectal surgery she will need chemo to shrink existing mass then surgery to remove residual if chemo works(will confirm with surgeon)
Diet advanced to full's, diet per colorectal
Pain control
DC Martinez when okay with primary team
COLO performed 02/12/2024 Showing 'A malignant-appearing, intrinsic severe stenosis with oozing ontouch was found in the proximal rectum at 20 cm and was non-traversed' as well as multiple polyps.
Biopsy showed tubular adenoma. Patient was scheduled to have another biopsy performed yesterday for definitive diagnosis but this was delayed due to her fever
.-Was due for another biopsy of the distal rectum polyp 10 to 12 mm due to incomplete polyp resection on 02/20/[address] Salguero but held due to reported fever 101 by
patient to office
#Recent small posterior left lung base infiltrate on CT suspicious for pneumonia.
- She was treated with IV Rocephin and doxycycline throughout her stay. She did not require any oxygen and did not have any leukocytosis during her stay.
-She was transition to cefdinir and doxycycline to complete [id number] states she developed head to toe rash so her PCP had her stop both medications however she has tolerated Keflex and penicillins in the past
-Patient denies any cough, fever, shortness of breath
#Chronic COPD/asthma�no acute exacerbation
# Prior nicotine abuse
-1-1.5 pack/day x 47 years stopped February 2024
-Patient refuses nicotine patch
-Patient may use nicotine gum here if not present may use own nicotine gum
-Continue singular 10 mg at bedtime
DuoNebs as needed
Reports does not use any maintenance inhaler
# History of hyponatremia secondary to beer Poto pietro
NA 136-stable will monitor
Patient drinks 375 mL wine daily
-Follow CMP
-
#Alcohol abuse hx
Drinks 375 mL wine daily last drink was on 02/16/2024, however she states she has 1 glass of wine on Fridays since story is inconsistent we will place patient on an MSAS screen with protocol
-MSAs screen with protocol
-Resume IV thiamine, IV folate
#HTN�benign
Currently low, normal. Restart amlodipine when blood pressure is high
-Hydralazine 10 mg IV every 6 hours as needed SBP >165
#HLD
#GERD
DVT prophylaxis
SCDs, Lovenox
Full code per patient states Mike Anne is her legal
Anticipated Discharge: 24 - 48 hours
Subjective/Interval History
-
Date of Service: March 08, 2024
Denies nausea
Objective Data
-
Labs:
Laboratory Results
03/08/24
05:25
WBC 10.3
Hgb 12.7
Hct 37.2
Plt Count 498 H
Sodium 137
Potassium 4.3
Chloride 103
Carbon Dioxide 24
BUN 6 L
Creatinine 0.5 L
Glucose 124 H
Calcium 8.0 L
Vital Signs:
Vital Signs
Temp Pulse Resp BP Pulse Ox
98.1 F 84 16 125/56 97
03/08/24 11:27 03/08/24 11:27 03/08/24 11:27 03/08/24 11:27 03/08/24 11:27
I&O
03/07/24 03/08/24 03/09/24
06:59 06:59 06:59
Intake Total 1200 / 1200
Output Total 1874 / 1874
Balance -675 / -675
[2024-03-08 15:30] VITALS: BP 122/54; PULSE 75; O2SAT 97
[2024-03-08 15:41] VITALS: BP 134/65
[2024-03-08] MEDS: LOVENOX 40 MG SC (17:55)
[2024-03-08] MEDS: LIPITOR 10 MG PO (21:13)
[2024-03-08] MEDS: SINGULAIR 10 MG PO (21:13)
[2024-03-08 23:55] VITALS: BP 137/68
[2024-03-09] MEDS: TORADOL 15 MG IV ×4 (02:19→20:11)
[2024-03-09] MEDS: TYLENOL PO (05:04)
[2024-03-09 06:10] VITALS: BMI 20.3
[2024-03-09 07:30] VITALS: BP 144/61
[2024-03-09] MEDS: PROTONIX IV 40 MG IV (09:54)
[2024-03-09] MEDS: VITAMIN B1 100 MG PO ×2 (09:54→20:11)
[2024-03-09] MEDS: TYLENOL 650 MG PO ×5 (09:54→23:31)
[2024-03-09] MEDS: NSS (PRESERVATIVE FREE) 10 ML IV (09:54)
[2024-03-09] MEDS: FOLVITE 1 MG PO (09:55)
[2024-03-09] MEDS: NORVASC 2.5 MG PO (09:55)
[2024-03-09] MEDS: ENTEREG 12 MG PO ×2 (09:55→20:11)
--- NOTE | 2024-03-09 12:05 | W.PN.HOSP.TC ---
Today's Communication/Plan
-
Monitor vitals
See plan
Diet per colorectal
Add melatonin
Amlodipine restarted
Assessment / Plan
Assessment / Plan
General: No acute distress
HEENT: Normocephalic, PERRLA
Respiratory: Clear; Negative Wheezes or Rales
Cardiac: S1/S2 and Regular Rhythm; Negative Murmur, Rub, Peripheral Edema or Calf Tenderness
GI: Soft, Non Tender, Non Distended, Normal Bowel Sounds and Other (Colostomy left side abdomen multiple robotic incisions right side abdomen)
Musculoskeletal: No edema
Neuro: AO x 3 and No Motor Deficits; Negative Slurred Speech
Psych: Calm
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
#Recent Tubular adenoma on colonoscopy 02/12/2024 proximal rectum
Patient with left-sided colostomy created for bowel excretion
-Patient reports was told by colorectal surgery she will need chemo to shrink existing mass then surgery to remove residual if chemo works(will confirm with surgeon)
Diet advanced to full's, diet per colorectal
Pain control per primary team
Martinez DC'd 02/26
COLO performed 02/12/2024 Showing 'A malignant-appearing, intrinsic severe stenosis with oozing ontouch was found in the proximal rectum at 20 cm and was non-traversed' as well as multiple polyps.
Biopsy showed tubular adenoma. Patient was scheduled to have another biopsy performed yesterday for definitive diagnosis but this was delayed due to her fever
.-Was due for another biopsy of the distal rectum polyp 10 to 12 mm due to incomplete polyp resection on 02/20/[address] Salguero but held due to reported fever 101 by
patient to office
#Recent small posterior left lung base infiltrate on CT suspicious for pneumonia.
- She was treated with IV Rocephin and doxycycline throughout her stay. She did not require any oxygen and did not have any leukocytosis during her stay.
-She was transition to cefdinir and doxycycline to complete [id number] states she developed head to toe rash so her PCP had her stop both medications however she has tolerated Keflex and penicillins in the past
-Patient denies any cough, fever, shortness of breath
#Chronic COPD/asthma�no acute exacerbation
# Prior nicotine abuse
-1-1.5 pack/day x 47 years stopped February 2024
-Patient refuses nicotine patch
-Patient may use nicotine gum here if not present may use own nicotine gum
-Continue singular 10 mg at bedtime
DuoNebs as needed
Reports does not use any maintenance inhaler
# History of hyponatremia secondary to beer Poto pietro
NA 136-stable will monitor
Patient drinks 375 mL wine daily
-
#Alcohol abuse hx
Drinks 375 mL wine daily last drink was on 02/16/2024, however she states she has 1 glass of wine on Fridays since story is inconsistent we will place patient on an MSAS screen with protocol
-MSAs screen with protocol
Resume thiamine, folate
#HTN�benign
Restart amlodipine
-Hydralazine 10 mg IV every 6 hours as needed SBP >165
#HLD
#GERD
DVT prophylaxis
SCDs, Lovenox
Full code per patient states Mike Anne is her legal
Anticipated Discharge: Within 24 hours
Subjective/Interval History
-
Date of Service: March 09, 2024
Denies nausea
Objective Data
-
Vital Signs:
Vital Signs
Temp Pulse Resp BP Pulse Ox
98.3 F 59 14 144/61 96
03/09/24 07:30 03/09/24 07:30 03/09/24 07:30 03/09/24 07:30 03/09/24 07:30
I&O
03/08/24 03/09/24 03/10/24
06:59 06:59 06:59
Intake Total 1200 / 1200 4320 / 4320
Output Total 1874 / 1874 2495 / 2495
Balance -675 / -675 1825 / 182
--- NOTE | 2024-03-09 15:42 | W.PN.CRS1 ---
Addendum entered and electronically signed by Jonas Posey MD 03/09/24 19:43:
I saw and examined the patient.
The [facility] [facility]'s note was reviewed and I agree with the note.
Original Note:
Today's Communication / Plan
-
LRD
Assessment/Plan
-
63 yo female with a h/o rectosigmoid junction CA/rectal mass with impending LBO now POD #2 robotic sigmoid colostomy creation (end-loop de la garza type)
AFVSS
Doing well and following expected course
-Advance to LRD
-Out of bed/physical therapy
-Teds/lovenox/SCDs for DVT prophylaxis.
-Wound RN for stoma management, patient has not yet completed ostomy teaching
-CM consult for home care arrangements
-Okay to shower
-Pain control: Tylenol and Toradol standing, oxycodone, Dilaudid as needed
-Appreciate hospitalist
Tentative d/c tomorrow if ostomy teaching can be done by home care at home but more likely will plan d/c on Monday after ostomy teaching done here/supplies ordered
Subjective Data
Procedure
03/07/24- robotic sigmoid colostomy creation (end-loop De La Garza type)
Subjective Data
Date of Service: March 09, 2024
Patient seen and examined at bedside with Dr. Posey around 1230pm. Denies n/v. Tolerating diet and eager to have solids. Denies pain. Denies n/v.
Objective Data
-
Vital Signs
Temp Pulse Resp BP Pulse Ox
98.3 F 59 14 144/61 96
03/09/24 07:30 03/09/24 07:30 03/09/24 07:30 03/09/24 07:30 03/09/24 07:30
Intake & Output
03/08/24 03/09/2425
06:59 06:59 06:59
Intake Total 1200 / 1200 4320 / 4320
Output Total 1874 2495 / 249
Balance -675 / -675 182 182
Intake:
Oral fluids 240 / 240 2520 / 2520
IV fluids (Total) 960 / 960 1800 / 1800
Normosol 60 / 60
Output:
Liquid stool amount 120 / 120
Colostomy 120 / 120
Urine, Martinez 1874 1400 / 1400
Urine, Voided 975 / 975
Other:
Number of approximated SMALL 3
amounts of urine
Number of approximated LARGE 1
amounts of urine
Number of unmeasured liquid
stools
Colostomy 50
Lab Results
03/08/24 05:25
03/08/24 05:25
Physical Exam
-
General: No Acute Distress and AOx3
Abdomen: Soft, Non Distended, Non Tender and Other (Colostomy warm and pink with flatus/soft stool in the bag)
Skin: Warm and Dry
Incision: Clear, Dry, Intact
--- NOTE | 2024-03-09 16:01 | CM ---
Met with pt and her at bedside
New ostomy - me with wound care x's 1 - would like to learn
Discussed VN, ostomy teaching and how supplies are ordered
Referral sent for [facility] to follow at discharge
Plan - home with [facility]
[2024-03-09] MEDS: LOVENOX 40 MG SC (18:42)
[2024-03-09] MEDS: SINGULAIR 10 MG PO (20:11)
[2024-03-09] MEDS: LIPITOR 10 MG PO (20:11)
[2024-03-09] MEDS: MELATONIN 3 MG PO (23:31)
[2024-03-09 23:38] VITALS: BP 115/51
[2024-03-10] MEDS: TORADOL 15 MG IV ×3 (02:43→16:55)
[2024-03-10] MEDS: TYLENOL 650 MG PO ×5 (05:03→23:25)
[2024-03-10 05:15] LABS: % Basophils 0.8 % (0-2); % Eosinophils 2.2 % (0-6); % Immature Granulocytes 0.3 % (0-0.5); % Lymphocytes 25.7 % (20.5-51.1); % Monocytes 8.3 % (1.7-9.3); % Neutrophils 62.7 % (42.2-75.2); Absolute Basophils 0.1 10^3/uL (0-0.2); Absolute Eosinophils 0.2 10^3/uL (0-0.7); Absolute Monocytes 0.7 10^3/uL (0.1-0.6); Absolute Neutrophils 4.9 10^3/uL (1.4-6.5); Hematocrit 36.6 % (37.0-47.0); Hemoglobin 12.7 g/dL (12.0-16.0); Mean Corp Hgb Conc. 34.7 g/dL (33.0-37.0); Mean Corpuscular Hgb 29.5 pg (27.0-31.0); Mean Corpuscular Volume 85.1 fL (81.0-99.0); Mean Platelet Volume 8.5 fL (7.4-10.4); Nucleated Red Blood Cells % 0 %; Platelet Count 461 10^3/uL (130-400); Red Cell Dist. Width 12.7 % (11.5-14.5); White Blood Cell Count 7.9 10^3/uL (4.8-10.8)
[2024-03-10 05:38] LABS: Blood Urea Nitrogen 11 mg/dl (7-17); Calcium 10.2 mg/dl (8.4-10.2); Carbon Dioxide 26 mmol/L (22-30); Chloride 102 mmol/L (98-107); Estimated Creatinine Clearance 86 ml/min; Glucose 103 mg/dl (70-99); Potassium 4.1 mmol/L (3.5-5.1); Sodium 137 mmol/L (135-145); eGFR > 60.00
[2024-03-10 06:00] VITALS: BMI 19.8
[2024-03-10 07:18] VITALS: BP 133/57
[2024-03-10] MEDS: NORVASC 2.5 MG PO (08:49)
[2024-03-10] MEDS: VITAMIN B1 100 MG PO ×2 (08:49→20:49)
[2024-03-10] MEDS: TYLENOL PO (08:50)
[2024-03-10] MEDS: FOLVITE 1 MG PO (08:50)
[2024-03-10] MEDS: ENTEREG 12 MG PO ×2 (08:51→20:49)
[2024-03-10] MEDS: PROTONIX IV 40 MG IV (08:52)
[2024-03-10] MEDS: NSS (PRESERVATIVE FREE) 10 ML IV (08:52)
[2024-03-10 09:21] LABS: Urine Albumin 3+ (Neg - Trace); Urine Bilirubin Negative (Negative); Urine Character Slightly Cloudy (Clear); Urine Color Yellow; Urine Glucose Negative (Negative); Urine Ketone Negative (Negative); Urine Leukocyte 2+ (Negative); Urine Nitrite Negative (Negative); Urine Occult Blood 4+ (Negative); Urine Urobilinogen Negative (Neg - 1+); Urine pH 6.5 (5.0-9.0)
[2024-03-10 09:35] LABS: Urine Red Blood Cell 60-70 /HPF (0-2); Urine Squamous Cell 0-2 /LPF (Few)
[2024-03-10 09:36] LABS: Urine Bacteria Few (Negative)
--- NOTE | 2024-03-10 12:01 | W.PN.HOSP.TC ---
Today's Communication/Plan
-
Monitor vital signs see plan
Continue melatonin
Continue with amlodipine
Monitor hematuria
Diet advanced
Hopeful DC tomorrow per primary team
Assessment / Plan
Assessment / Plan
General: No acute distress
HEENT: Normocephalic, PERRLA
Respiratory: Clear; Negative Wheezes or Rales
Cardiac: S1/S2 and Regular Rhythm; Negative Murmur, Rub, Peripheral Edema or Calf Tenderness
GI: Soft, Non Tender, Non Distended, Normal Bowel Sounds and Other (Colostomy left side abdomen multiple robotic incisions right side abdomen)
Musculoskeletal: No edema
Neuro: AO x 3 and No Motor Deficits; Negative Slurred Speech
Psych: Calm
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
#Recent Tubular adenoma on colonoscopy 02/12/2024 proximal rectum
Patient with left-sided colostomy created for bowel excretion
-Patient reports was told by colorectal surgery she will need chemo to shrink existing mass then surgery to remove residual if chemo works(will confirm with surgeon)
Diet advanced to low residue per colorectal, monitor
Pain control per primary team
Martinez DC'd 02/26
Need stoma management, has not completed ostomy teaching yet. Hopeful DC tomorrow per primary team
Mild hematuria
UA not suggestive of UTI
Could be secondary to left double J stent that was placed by urology. Monitor
COLO performed 02/12/2024 Showing 'A malignant-appearing, intrinsic severe stenosis with oozing ontouch was found in the proximal rectum at 20 cm and was non-traversed' as well as multiple polyps.
Biopsy showed tubular adenoma. Patient was scheduled to have another biopsy performed yesterday for definitive diagnosis but this was delayed due to her fever
.-Was due for another biopsy of the distal rectum polyp 10 to 12 mm due to incomplete polyp resection on 02/20/[address] Salguero but held due to reported fever 101 by
patient to office
#Recent small posterior left lung base infiltrate on CT suspicious for pneumonia.
- She was treated with IV Rocephin and doxycycline throughout her stay last time recently. She did not require any oxygen and did not have any leukocytosis during her stay.
-She was transition to cefdinir and doxycycline to complete [id number] states she developed head to toe rash so her PCP had her stop both medications however she has tolerated Keflex and penicillins in the past
-Patient denies any cough, fever, shortness of breath; monitor off abx
#Chronic COPD/asthma�no acute exacerbation
# Prior nicotine abuse
-1-1.5 pack/day x 47 years stopped February 2024
Nicotine gum
-Continue singular 10 mg at bedtime
DuoNebs as needed
Reports does not use any maintenance inhaler
# History of hyponatremia secondary to beer Poto pietro
NA 136-stable will monitor
Patient drinks 375 mL wine daily
-
#Alcohol abuse hx
Drinks 375 mL wine daily last drink was on 02/16/2024, however she states she has 1 glass of wine on Fridays since story is inconsistent we will place patient on an MSAS screen with protocol
-MSAs screen with protocol
Resume thiamine, folate
#HTN�benign
Continue amlodipine
-Hydralazine 10 mg IV every 6 hours as needed SBP >165
#HLD
#GERD
DVT prophylaxis
SCDs, Lovenox
Full code per patient states Mike Anne is her legal
Anticipated Discharge: Within 24 hours
Subjective/Interval History
-
Date of Service: March 10, 2024
Denies pain
Objective Data
-
Labs:
Laboratory Results
03/10/24
04:40
WBC 7.9
Hgb 12.7
Hct 36.6 L
Plt Count 461 H
Sodium 137
Potassium 4.1
Chloride 102
Carbon Dioxide 26
BUN 11
Creatinine 0.6
Glucose 103 H
Calcium 10.2 D
Vital Signs:
Vital Signs
Temp Pulse Resp BP Pulse Ox
98.2 F 57 16 133/57 97
03/10/24 07:18 03/10/24 07:18 03/10/24 07:18 03/10/24 07:18 03/10/24 07:18
I&O
03/09/24 03/10/24 03/11/24
06:59 06:59 06:59
Intake Total 4320 / 4320 1440 / 1440
Output Total 2495 / 2495
Balance 1825 / 1825 1415 / 1415
--- NOTE | 2024-03-10 13:26 | W.PN.CRS1 ---
Today's Communication / Plan
-
As below
Assessment/Plan
-
63-year-old female with PMH of HTN, HLD, asthma and near obstructing rectosigmoid colon mass, presented for elective surgery
POD 3 robotic end�loop colostomy creation
AFVSS
WBC 7.9, Hb 12.7 from 12.7, CR 0.6
� Continue low residue diet
� Continue pain control with Tylenol, Toradol, Dilaudid as needed; continue Entereg until discharge
� Appreciate ostomy team; will need to wait until tomorrow for ostomy education and supplies
� Continue DVT PPx with Lovenox
� Continue home medication
� Encourage OOB/IS
�Appreciate hospitalist consult
Dispo�okay for discharge once ostomy education and supplies ordered (tomorrow)
Subjective Data
Procedure
03/07/24- robotic sigmoid colostomy creation (end-loop De La Garza type)
Subjective Data
Date of Service: March 10, 2024
No overnight events. Tolerating a diet without nausea/vomiting. Having ostomy function and voiding. OOB.
Objective Data
-
Vital Signs
Temp Pulse Resp BP Pulse Ox
98.2 F 57 16 133/57 97
03/10/24 07:18 03/10/24 07:18 03/10/24 07:18 03/10/24 07:18 03/10/24 07:18
Intake & Output
03/09/24 03/10/24 03/11/24
06:59 06:59 06:59
Intake Total 4320 / 4320 1440 / 1440
Output Total 2495 / 2495
Balance 1825 / 1825 1415 / 1415
Intake:
Oral fluids 2520 / 2520 1440 / 1440
IV fluids (Total) 1800 / 1800
Output:
Liquid stool amount 120 / 120
Colostomy 120 / 120
Urine, Martinez 1400 / 1400
Urine, Voided 975 / 975
Other:
Number of approximated SMALL 3
amounts of urine
Number of approximated MODERATE 3
amounts of urine
Number of approximated LARGE 1
amounts of urine
Lab Results
03/10/24 04:40
03/10/24 04:40
Physical Exam
-
General: No Acute Distress and AOx3
HEENT: Grossly Normal
Abdomen: Soft, Non Distended, Tender (Appropriately tender near incisions), No Guarding, No Rebound and Other (Ostomy pink and productive of stool)
Skin: Warm and Dry
Wound: No Signs of Infection, No Skin Erythema and Other (Port sites well-approximated, no erythema or drainage, covered in Dermabond)
[2024-03-10 15:01] VITALS: BP 131/60
[2024-03-10] MEDS: TORADOL IV (16:55)
[2024-03-10] MEDS: LOVENOX 40 MG SC (16:56)
[2024-03-10] MEDS: LIPITOR 10 MG PO (20:49)
[2024-03-10] MEDS: SINGULAIR 10 MG PO (20:49)
[2024-03-10] MEDS: MELATONIN 3 MG PO (21:04)
[2024-03-10 23:27] VITALS: BP 142/60
[2024-03-11] MEDS: TORADOL 15 MG IV ×2 (02:22→08:21)
[2024-03-11] MEDS: TYLENOL 650 MG PO ×2 (05:23→08:23)
[2024-03-11 05:31] VITALS: BMI 19.9
[2024-03-11 08:00] VITALS: BP 138/62
[2024-03-11] MEDS: FOLVITE 1 MG PO (08:20)
[2024-03-11] MEDS: NSS (PRESERVATIVE FREE) 10 ML IV (08:20)
[2024-03-11] MEDS: ENTEREG 12 MG PO (08:20)
[2024-03-11] MEDS: NORVASC 2.5 MG PO (08:20)
[2024-03-11] MEDS: PROTONIX IV 40 MG IV (08:21)
[2024-03-11] MEDS: FLUSH (NSS) 1 FLUSH IV (08:22)
[2024-03-11] MEDS: VITAMIN B1 100 MG PO (08:23)
--- NOTE | 2024-03-11 09:56 | CM ---
Reviewed the chart notes and spoke with the patient and her spouse at the bedside. IMM reviewed. The patient anticipates being discharged to home today. Patient's spouse to provide transportation. CM continues to be available to patient/family
and is monitoring medical plan for needs at discharge.
Plan: Discharge to home with [facility] services.
--- NOTE | 2024-03-11 10:37 | WOUNDNOTE ---
WOC RN note: Patient for discharge today. Stoma pink and budded. Peristomal skin intact with minor local redness inferiorly. Instructed patient and can treat peristomal rash with OTC miconazole powder followed by no sting barrier wipe if
persists. Reinstructed patient how to empty pouch. Instructed how to change colostomy appliance using Marlow wafer # [id number], Iris seal and Marlow pouch # [id number]. Ostomy supplies and teaching folder in chart. Patient gave this blog writer verbal
permission to order her a Marlow ostomy secure starter kit. VN planned for teaching. Next appliance change due to Monday by AL .
--- NOTE | 2024-03-11 10:49 | W.PN.CRS1 ---
Today's Communication / Plan
-
Wound teaching
Oncology
Dispo after the above
Assessment/Plan
-
63-year-old female with PMH of HTN, HLD, asthma and near obstructing rectosigmoid colon mass, presented for elective surgery
POD 4 robotic end�loop colostomy creation
AFVSS
No labs today
� Continue low residue diet
� Continue pain control with Tylenol, Toradol, Dilaudid as needed; continue Entereg until discharge
� Appreciate ostomy team, final teaching today
� Continue DVT PPx with Lovenox
� Continue home medication
� Encourage OOB/IS
�Appreciate hospitalist consult
-Hematology oncology consult prior to leaving
-Dispo�discharged with VN after oncology consult
Subjective Data
Procedure
03/07/24- robotic sigmoid colostomy creation (end-loop De La Garza type)
Subjective Data
Date of Service: March 11, 2024
Patient states she feels well.
Objective Data
-
Vital Signs
Temp Pulse Resp BP Pulse Ox
97.6 F 80 16 138/62 95
03/11/24 08:00 03/11/24 08:20 03/11/24 08:00 03/11/24 08:20 03/11/24 08:15
Intake & Output
03/10/24 03/11/24 03/12/24
06:59 06:59 06:59
Intake Total 1440 / 1440 1859
Output Total 175 / 175
Balance 1415 / 1415 1685 / 1685
Intake:
Oral fluids 1440 / 1440 1859 / 1860
IV fluids (Total) 0 / 0
IV piggybacks 0 / 0
Output:
Liquid stool amount 175 / 175
Colostomy 175 / 175
Other:
Number of approximated MODERATE 3 3
amounts of urine
Lab Results
03/10/24 04:40
03/10/24 04:40
Physical Exam
-
General: No Acute Distress and AOx3
Abdomen: Soft, Non Distended, Non Tender and Other (Colostomy warm and pink with function)
Skin: Warm and Dry
--- NOTE | 2024-03-11 11:01 | W.DS.TRANS ---
DC Summary - Estimating Manager
-
Discharge Instructions:
Sleep Apnea Risk Low
Discharge Diagnosis/Procedures robotic sigmoid colostomy creation (end-loop
De La Garza type)
Diet Low Residue
Activity No strenuous activity
Additional Activity No lifting over 10 pounds (gallon of milk)
Driving Restrictions No driving for 1 week
Bathing Restrictions OK to Shower
Wound Care Allow glue to naturally fall off. Do not pick
at incisions.
Instructions: Low-fiber diet
Stand-Alone Forms:
Changes to Home Medications: Yes
Discharge Medications:
DC Medications w/original date entered in [employer]
acetaminophen 325 mg tablet (Tylenol) 650 mg PO Q6HPRN PRN fever/pain 02/22/24
albuterol sulfate 90 mcg/actuation aerosol inhaler 2 puff inhalation R QIDPRN PRN sob 02/22/24
amlodipine 2.5 mg tablet (Norvasc) 2.5 mg PO DAILY Blood Pressure 02/22/24
montelukast 10 mg tablet (Singulair) 10 mg PO .@ 1999 asthma 02/22/24
simvastatin 20 mg tablet (Zocor) 20 mg PO .@ 1999 High Cholesterol 02/22/24
famotidine 20 mg tablet 20 mg PO DAILY@1700 PRN Gastrointestinal issue 1 month #60 tabs 02/26/24
folic acid 1 mg tablet 1 mg PO DAILY Supplement 1 month #30 tabs 02/26/24
nicotine (polacrilex) 2 mg gum 4 mg PO Q4HPRN PRN tobacco cessation 1 month #50 ea 02/26/24
thiamine HCl (vitamin B1) 100 mg tablet 100 mg PO BID Supplement 1 month #60 tabs 02/26/24
Fish Oil 1 cap PO .HS @ 199903/01/24
chlorhexidine gluconate 0.12 % mouthwash 15 ml mucous membrane .@ 199903/01/24
diphenhydramine 25 mg-acetaminophen 500 mg tablet (Tylenol PM Extra Strength) 1 tab PO .HS @ 1999 PRN sleep 03/01/24
melatonin 2 mg-soy iso 56 mg-black cohosh 40 mg-calcium 112 mg tablet (Estroven Sleep Cool) 1 tab PO .HS @ 199903/01/24
sodium chloride 5 % eye ointment (Barry 128) 1 applic ophthalmic (eye) .HS @199903/01/24
Home Medication Changes
stop:
Metronidazole
Neomycin
Sutab
Pending Results: Yes
Additional Pending Results:
PATHOLOGY
--- NOTE | 2024-03-11 11:09 | CON.ONC ---
Impression
Impression
- Stage III colorectal adenocarcinoma
- direct left ovary involvement with colon mass
- left hydronephrosis due to extrinsic compression
Plan
Plan
- work-up for change in bowels, heme positive stool showed recto-sigmoid stricture with mass extending to left ovary and causing compression of left ureter. Staging pelvic MRI with cT4b, cN2a disease, no distant metastases.
- s/p left ureteral stent placement, diverting ostomy. Final pathology c/w low grade invasive colorectal adenocarcinoma.
- CEA elevated at 72.2.
- reviewed NCCN guidelines regarding management of stage III colorectal cancer and recommendation for neoadjuvant chemoradiation, chemotherapy followed by resection of residual disease.
- pt will be reviewed at multidisciplinary conference today.
- will arrange oncology follow up, radiation eval.
Patient History
History of Present Illness
Bro[place] is a 63 yo F that was found to have A malignant-appearing, intrinsic severe stenosis in the rectum on out-pt colonoscopy 02/11 for change in bowels, heme positive stool. staging CT C/A/P without distant disease however noted 10 cm area of
thickening in the sigmoid colon with contiguous mass on left with left ovary involvement and partial obstruction of left ureter causing moderate to severe stenosis. Pelvic MRI confirmed mass likely originating in colon with direct extension/invasion
into left ovary. at least 6 suspicious pelvic lymph nodes. cT4b, cN2a. She underwent ureteral stent placement as well as diverting ostomy with Dr Salguero on 03/06. Pathology consistent with low grade invasive colorectal adenocarcinoma, no LVI. MMR
intact. She is recovering well from surgery without discomfort or issues with ostomy. Family hx of prostate cancer in father, no GI cancers. She is active smoker, hx of heavy ETOH use. labs show normal hgb at 12.7 g/dl today. CEA was 72.2.
Patient Medication
�Medication �Instructions �Recorded �Confirmed �Last Taken �Type
acetaminophen 325 mg tablet 650 mg PO Q6HPRN PRN fever/pain 02/22/24 03/07/24 03/06/24 22:00 History
(Tylenol)
albuterol sulfate 90 mcg/actuation 2 puff inhalation R QIDPRN PRN sob 02/22/24 03/07/24 02/25/24 History
aerosol inhaler
amlodipine 2.5 mg tablet (Norvasc) 2.5 mg PO DAILY Blood Pressure 02/22/24 03/07/24 03/07/24 06:30 History
montelukast 10 mg tablet 10 mg PO .@ 1999 asthma 02/22/24 03/07/24 03/06/24 20:00 History
(Singulair)
simvastatin 20 mg tablet (Zocor) 20 mg PO .@ 1999 High Cholesterol 02/22/24 03/07/24 03/06/24 20:00 History
famotidine 20 mg tablet 20 mg PO DAILY@1700 PRN 02/26/24 03/07/24 03/06/24 17:00 Rx
Gastrointestinal issue 1 month #60
tabs
folic acid 1 mg tablet 1 mg PO DAILY Supplement 1 month 02/26/24 03/07/24 03/01/24 Rx
#30 tabs
nicotine (polacrilex) 2 mg gum 4 mg PO Q4HPRN PRN tobacco 02/26/24 03/07/24 03/07/24 08:00 Rx
cessation 1 month #50 ea
thiamine HCl (vitamin B1) 100 mg 100 mg PO BID Supplement 1 month 02/26/24 03/07/24 03/01/24 Rx
tablet #60 tabs
Fish Oil 1 cap PO .HS @ 199903/01/24 03/07/24 02/08/24 History
chlorhexidine gluconate 0.12 % 15 ml mucous membrane .@ 199903/01/24 03/07/24 03/06/24 20:00 History
mouthwash
diphenhydramine 25 1 tab PO .HS @ 1999 PRN sleep 03/01/24 03/07/24 03/06/24 22:00 History
mg-acetaminophen 500 mg tablet
(Tylenol PM Extra Strength)
melatonin 2 mg-soy iso 56 mg-black 1 tab PO .HS @ 199903/01/24 03/07/24 03/01/24 History
cohosh 40 mg-calcium 112 mg tablet
(Estroven Sleep Cool)
sodium chloride 5 % eye ointment 1 applic ophthalmic (eye) .HS @199903/01/24 03/07/24 03/06/24 20:00 History
(Barry 128)
Active Medications
Generic Name Dose Route Start Last Admin
Trade Name Freq PRN Reason Stop Dose Admin
Acetaminophen 650 mg 03/07/24 16:00 03/11/24 08:23
Acetaminophen 325 Mg Tablet PO 04/04/24 15:59 650 mg
Q4HWA MARK Administration
Albuterol 2 puff 03/07/24 15:13
Albuterol Hfa [90 Mcg/Dose] Inhaler INH
R QIDPRN PRN
sob
Protocol
Albuterol/Ipratropium 3 ml 03/07/24 23:56
Ipratropium 0.5/Albuterol 3 Mg (3 Ml Ampul) INH
R Q4HPRN PRN
wheezing
Protocol
Alvimopan 12 mg 03/08/24 08:00 03/11/24 08:20
Alvimopan (Entereg) 12 Mg Capsule PO 03/14/24 20:01 12 mg
BID MARK Administration
Amlodipine Besylate 2.5 mg 03/09/24 09:00 03/11/24 08:20
Amlodipine 2.5 Mg Tablet PO 04/06/24 08:59 2.5 mg
DAILY MARK Administration
Atorvastatin Calcium 10 mg 03/07/24 20:00 03/10/24 20:49
Atorvastatin (Lipitor) 10 Mg Tablet PO 04/04/24 19:59 10 mg
DAILY@1999 MARK Administration
Enoxaparin Sodium 40 mg 03/08/24 18:00 03/10/24 16:56
Enoxaparin Sodium 40 Mg/0.4 Ml Syringe SC 04/05/24 17:59 40 mg
QPM MARK Administration
Folic Acid 1 mg 03/08/24 08:00 03/11/24 08:20
Folic Acid 1 Mg Tablet PO 04/05/24 07:59 1 mg
DAILY MARK Administration
Hydralazine HCl 10 mg 03/07/24 16:25
Hydralazine 20 Mg/Ml Vial IV 04/04/24 16:24
Q6HPRN PRN
sbp>165
Hydromorphone HCl 0.5 mg 03/07/24 15:11
Hydromorphone 0.5 Mg/0.5 Ml Syringe IV 03/21/24 15:10
Q4HPRN PRN
severe pain
Ketorolac Tromethamine 15 mg 03/07/24 20:00 03/11/24 08:21
Ketorolac 15 Mg/Ml Injection IV 03/12/24 19:59 15 mg
Q6H MARK Administration
Lorazepam 1 mg 03/07/24 16:31
Lorazepam 1 Mg Tablet PO 04/04/24 16:30
Q2HPRN PRN
MSAS 5-7
Lorazepam 1 mg 03/07/24 16:31
Lorazepam 2 Mg/Ml Vial IV 04/04/24 16:30
Q1HPRN PRN
MSAS 8-11
Lorazepam 2 mg 03/07/24 16:31
Lorazepam 2 Mg/Ml Vial IV 04/04/24 16:30
Q1HPRN PRN
MSAS > 11
Melatonin 3 mg 03/09/24 22:00 03/10/24 21:04
Melatonin 3 Mg Tablet PO 04/06/24 21:59 3 mg
HS MARK Administration
Montelukast Sodium 10 mg 03/07/24 20:00 03/10/24 20:49
Montelukast Sodium 10 Mg Tablet PO 04/04/24 19:59 10 mg
DAILY@2000 MARK Administration
Nicotine Polacrilex 2 mg 03/07/24 16:23 03/08/24 06:22
Nicotine 2 Mg Chewing Gum PO 04/04/24 16:22 2 mg
Q2HPRN PRN Administration
Nicotine craving
Ondansetron HCl 4 mg 03/07/24 15:11
Ondansetron 4 Mg/2 Ml Vial IV 04/04/24 15:10
Q6HPRN PRN
nausea/vomiting
Oxycodone HCl 5 mg 03/09/24 15:45
Oxycodone 5 Mg Regular Release Tablet PO 03/23/24 15:44
Q4HPRN PRN
Moderate pain
Pantoprazole Sodium 40 mg 03/08/24 08:00 03/11/24 08:21
Pantoprazole Sodium 40 Mg/10 Ml Vial IV 04/05/24 07:59 40 mg
DAILY MARK Administration
Sodium Chloride 0 flush 03/07/24 16:00 03/11/24 08:22
Sodium Chloride 0.9% (Flush) Syringe IV 04/04/24 15:59 1 flush
PER PROTOCOL MARK Administration
Sodium Chloride 10 ml 03/08/24 08:00 03/11/24 08:20
Sodium Chloride 0.9% (Preservative Free) 10 Ml Vial IV 04/05/24 07:59 10 ml
DAILY MARK Administration
Sodium Chloride 1 applic 03/08/24 09:15
Sodium Chloride 5% (Barry Ophthalmic Ointment) 3.5 Gram Tube OPHTH 04/05/24 09:14
.HS @2000 MARK
Thiamine HCl 100 mg 03/07/24 20:00 03/11/24 08:23
Thiamine 100 Mg Tablet PO 04/04/24 19:59 100 mg
BID MARK Administration
Review of Systems
-
History Source: Patient
Constitutional: Denies Fever or Weight Loss
Respiratory: Denies Cough
Cardiac: Denies Chest Pain
GI: Denies Abdominal Pain, Nausea, Vomiting, Bloody Stools or Black Stools
Neuro: Denies Dizzy or Headache
Hematologic/Lymphatic: Denies Bleeding
Physical Exam
-
General: Well Developed, Well Nourished and No Apparent Distress
HEENT: Negative Jaundice
Cardiology: Normal Sinus Rhythm
Pulmonary: Clear
GI: Soft and Other (ostomy site non-erythematous ); Negative Distended
Musculoskeletal: No Edema
Neurology: Non Focal and No Lateralizing Symptoms
Psych: Anxious
Labs
Lab Results
WBC 7.9 10^3/uL (4.8-10.8) 03/10/24 04:40
RBC 4.30 10^6/uL (4.20-5.40) 03/10/24 04:40
Hgb 12.7 g/dL (12.0-16.0) 03/10/24 04:40
Hct 36.6 % (37.0-47.0) L 03/10/24 04:40
MCV 85.1 fL (81.0-99.0) 03/10/24 04:40
MCH 29.5 pg (27.0-31.0) 03/10/24 04:40
MCHC 34.7 g/dL (33.0-37.0) 03/10/24 04:40
RDW 12.7 % (11.5-14.5) 03/10/24 04:40
Plt Count 461 10^3/uL (130-400) H 03/10/24 04:40
MPV 8.5 fL (7.4-10.4) 03/10/24 04:40
Abs Immat Gran (auto) 0.0 10^3/uL (0-0.05) 03/10/24 04:40
Absolute Neuts (auto) 4.9 10^3/uL (1.4-6.5) 03/10/24 04:40
Absolute Lymphs (auto) 2.0 10^3/uL (1.2-3.4) 03/10/24 04:40
Absolute Monos (auto) 0.7 10^3/uL (0.1-0.6) H 03/10/24 04:40
Absolute Eos (auto) 0.2 10^3/uL (0-0.7) 03/10/24 04:40
Absolute Basos (auto) 0.1 10^3/uL (0-0.2) 03/10/24 04:40
Immature Gran % 0.3 % (0-0.5) 03/10/24 04:40
Neutrophils % 62.7 % (42.2-75.2) 03/10/24 04:40
Lymphocytes % 25.7 % (20.5-51.1) 03/10/24 04:40
Monocytes % 8.3 % (1.7-9.3) 03/10/24 04:40
Eosinophils % 2.2 % (0-6) 03/10/24 04:40
Basophils % 0.8 % (0-2) 03/10/24 04:40
Creatinine 0.6 mg/dL (0.6-1.0) 03/10/24 04:40
Vital Signs
Vital Signs
Temp Pulse Resp BP Pulse Ox
97.6 F 80 16 138/62 95
03/11/24 08:00 03/11/24 08:20 03/11/24 08:00 03/11/24 08:20 03/11/24 08:15
--- NOTE | 2024-03-11 11:15 | W.PN.HOSP.TC ---
Today's Communication/Plan
-
no objections to discharge
Assessment / Plan
Assessment / Plan
63yo F with PMHx of HTN, COPD came for post colostomy due to rectosigmoid tumor 03/07/2024, medically stable, BP withing tolerable limits, no advise to change medications. No objections to diascharge with close outpatient follow up by colorectal Sx
and oncology
#Recent Tubular adenoma on colonoscopy 02/12/2024 proximal rectum
Patient with left-sided colostomy created for bowel excretion
-Patient reports was told by colorectal surgery she will need chemo to shrink existing mass then surgery to remove residual if chemo works(will confirm with surgeon)
Diet advanced to low residue per colorectal, monitor
Pain control per primary team
Juan NAPIER'abida 02/26
completed ostomy teaching
#Recent small posterior left lung base infiltrate on CT suspicious for pneumonia.
She was treated with IV Rocephin and doxycycline throughout her stay last time recently. She did not require any oxygen and did not have any leukocytosis during her stay.
She was transition to cefdinir and doxycycline to complete [id number] states she developed head to toe rash so her PCP had her stop both medications however she has tolerated Keflex and penicillins in the past
Patient denies any cough, fever, shortness of breath; monitor off abx
#Chronic COPD/asthma�no acute exacerbation
#Prior nicotine abuse
1-1.5 pack/day x 47 years stopped February 2024
Nicotine gum
Continue singular 10 mg at bedtime
DuoNebs as needed
Reports does not use any maintenance inhaler
#History of hyponatremia secondary to beer Potomania
#Alcohol abuse hx
NA stable
MSAs screen with protocol
Resume thiamine, folate
#HTN�benign
#HLD
#GERD
cont home meds
DVT prophylaxis SCDs, Lovenox
Full code per patient states Mike Anne is her legal
Anticipated Discharge: Within 24 hours
Subjective/Interval History
-
Date of Service: March 11, 2024
Objective Data
-
Vital Signs:
Vital Signs
Temp Pulse Resp BP Pulse Ox
97.6 F 80 16 138/62 95
03/11/24 08:00 03/11/24 08:20 03/11/24 08:00 03/11/24 08:20 03/11/24 08:15
I&O
03/10/24 03/11/24 03/12/24
06:59 06:59 06:59
Intake Total 1440 / 1440 1860 / 1860
Output Total 175 / 175
Balance 1415 / 1415 1685 / 1685
Review of Systems
-
History Source: Patient
All other systems: Reviewed and negative
Physical Exam
-
General: No Apparent Distress
HEENT: Normocephalic
Respiratory: Clear to Auscultation
GI: Soft, Nontender, Nondistended and Ostomy (with brown stool)
Skin: Warm
Neuro: Awake, Alert, Oriented and AO x 3
Psych: Calm
--- NOTE | 2024-03-11 17:10 | WOUNDNOTE ---
WOC RN note: brittany/trista Rivera, spoke with Holli and ordered patient a Miguel secure ostomy starter kit.
== END 2024-03-11 11:55 | disposition home health service (06) | DRG 330 ==
LOC: 2 SOUTH 11:22
PROVIDERS: Nurse Practitioner Family; Physician Assistant; ADMITTING PHYSICIAN Surgery; CONSULT PHYSICIAN Internal Medicine Hematology & Oncology; FAMILY PHYSICIAN Internal Medicine; OTHER PHYSICIAN Internal Medicine
PROC: 0D1N0Z4 Bypass Sigmoid Colon to Cutaneous, Open Approach (ICD-10-PCS; 2024-03-07)
DX: C19 Malignant neoplasm of rectosigmoid junction (principal); N13.30 Unspecified hydronephrosis; J44.89 Other specified chronic obstructive pulmonary disease; F17.200 Nicotine dependence, unspecified, uncomplicated; E78.00 Pure hypercholesterolemia, unspecified; K21.9 Gastro-esophageal reflux disease without esophagitis; I10 Essential (primary) hypertension; Z93.3 Colostomy status
CPT/HCPCS: 88305; 36415; 74420; 76000; 80048; 80053; 81003; 81015; 82962; 83036; 85025; 85027; 85610; 85730; 86850; 86900; 86901; 97116; 97161; 99406; C1769; C2617; J1335

== ENCOUNTER 2024-03-29 06:20 | Day surgery (SDC) | payer MEDICARE, BC, SELFPAY ==
[2024-03-29 11:05] VITALS: BMI 21.0
[2024-03-29 11:10] VITALS: BP 141/73
[2024-03-29] MEDS: NORMOSOL-R/PLASMALYTE-A 1000 IV (11:25)
[2024-03-29 11:30] VITALS: BMI 21.0
[2024-03-29 13:02] VITALS: BP 117/57
[2024-03-29 13:15] VITALS: BP 111/54
== END 2024-03-29 14:44 | disposition home or self-care (01) ==
LOC: SDS 06:20
PROVIDERS: ATTENDING PHYSICIAN Surgery
DX: C20 Malignant neoplasm of rectum (principal)
CPT/HCPCS: 36561; 71045; 76000; C1788

== ENCOUNTER → 2024-04-02 11:08 | Outpatient (REF) | payer MEDICARE, BC, SELFPAY | LOC: HWRAD 11:08 | PROVIDERS: ATTENDING PHYSICIAN Internal Medicine | DX: R04.1 Hemorrhage from throat (principal) | CPT/HCPCS: 76536 ==

== ENCOUNTER → 2024-04-15 09:38 | Outpatient (REF) | payer MEDICARE, BC, SELFPAY ==
[2024-04-15 12:24] LABS: % Basophils 0.6 % (0-2); % Eosinophils 3.4 % (0-6); % Immature Granulocytes 0.5 % (0-0.5); % Lymphocytes 18.3 % (20.5-51.1); % Monocytes 9.7 % (1.7-9.3); % Neutrophils 67.5 % (42.2-75.2); Absolute Eosinophils 0.2 10^3/uL (0-0.7); Absolute Lymphocytes 1.2 10^3/uL (1.2-3.4); Absolute Monocytes 0.6 10^3/uL (0.1-0.6); Absolute Neutrophils 4.3 10^3/uL (1.4-6.5); Hematocrit 36.4 % (37.0-47.0); Hemoglobin 12.3 g/dL (12.0-16.0); Mean Corp Hgb Conc. 33.8 g/dL (33.0-37.0); Mean Corpuscular Hgb 28.9 pg (27.0-31.0); Mean Corpuscular Volume 85.4 fL (81.0-99.0); Mean Platelet Volume 8.3 fL (7.4-10.4); Nucleated Red Blood Cells % 0 %; Platelet Count 372 10^3/uL (130-400); Red Blood Cell Count 4.26 10^6/uL (4.20-5.40); Red Cell Dist. Width 13.2 % (11.5-14.5); White Blood Cell Count 6.4 10^3/uL (4.8-10.8)
[2024-04-15 12:46] LABS: ALT (SGPT) 18 U/L (0-35); AST (SGOT) 23 U/L (14-36); Albumin 4.5 g/dl (3.5-5.0); Alkaline Phosphatase 71 U/L (38-126); Blood Urea Nitrogen 10 mg/dl (7-17); Calcium 9.6 mg/dl (8.4-10.2); Carbon Dioxide 30 mmol/L (22-30); Chloride 101 mmol/L (98-107); Glucose 102 mg/dl (70-99); Potassium 4.2 mmol/L (3.5-5.1); Sodium 138 mmol/L (135-145); Total Bilirubin 0.6 mg/dl (0.2-1.3); Total Protein 6.6 g/dl (6.3-8.2); eGFR > 60.00
== END ==
LOC: HWLAB 09:38
PROVIDERS: ATTENDING PHYSICIAN Internal Medicine Hematology & Oncology; FAMILY PHYSICIAN Internal Medicine
DX: C20 Malignant neoplasm of rectum (principal); C79.60 Secondary malignant neoplasm of unspecified ovary
CPT/HCPCS: 36415; 80053; 85025

== ENCOUNTER → 2024-04-29 08:25 | Outpatient (REF) | payer MEDICARE, BC, SELFPAY ==
[2024-04-29 11:00] LABS: % Basophils 1.1 % (0-2); % Eosinophils 4.1 % (0-6); % Immature Granulocytes 0.4 % (0-0.5); % Monocytes 11.3 % (1.7-9.3); % Neutrophils 52.1 % (42.2-75.2); Absolute Basophils 0.1 10^3/uL (0-0.2); Absolute Eosinophils 0.2 10^3/uL (0-0.7); Absolute Lymphocytes 1.5 10^3/uL (1.2-3.4); Absolute Monocytes 0.5 10^3/uL (0.1-0.6); Absolute Neutrophils 2.4 10^3/uL (1.4-6.5); Hematocrit 36.6 % (37.0-47.0); Hemoglobin 12.7 g/dL (12.0-16.0); Mean Corp Hgb Conc. 34.7 g/dL (33.0-37.0); Mean Corpuscular Hgb 29.8 pg (27.0-31.0); Mean Corpuscular Volume 85.9 fL (81.0-99.0); Mean Platelet Volume 8.4 fL (7.4-10.4); Nucleated Red Blood Cells % 0 %; Platelet Count 274 10^3/uL (130-400); Red Blood Cell Count 4.26 10^6/uL (4.20-5.40); Red Cell Dist. Width 14.3 % (11.5-14.5); White Blood Cell Count 4.7 10^3/uL (4.8-10.8)
[2024-04-29 11:45] LABS: Glycohemoglobin (HgbA1c) 6.4 % (4.0-5.6)
[2024-04-29 13:50] LABS: ALT (SGPT) 24 U/L (0-35); AST (SGOT) 28 U/L (14-36); Albumin 4.3 g/dl (3.5-5.0); Alkaline Phosphatase 65 U/L (38-126); Blood Urea Nitrogen 14 mg/dl (7-17); Calcium 9.7 mg/dl (8.4-10.2); Carbon Dioxide 24 mmol/L (22-30); Chloride 107 mmol/L (98-107); Glucose 110 mg/dl (70-99); HDL Cholesterol 68 mg/dl; LDL Cholesterol, Calculated 67 mg/dl; Potassium 4.3 mmol/L (3.5-5.1); Sodium 142 mmol/L (135-145); Total Bilirubin 0.4 mg/dl (0.2-1.3); Total Cholesterol 156 mg/dl (50-199); Total Protein 6.7 g/dl (6.3-8.2); Triglyceride 105 mg/dl (10-149); Very Low Density Lipoprotein 21 mg/dl (0-30); eGFR > 60.00
== END ==
LOC: HWLAB 08:25
PROVIDERS: ATTENDING PHYSICIAN Internal Medicine Hematology & Oncology; FAMILY PHYSICIAN Internal Medicine
DX: C20 Malignant neoplasm of rectum (principal); C79.60 Secondary malignant neoplasm of unspecified ovary; E11.9 Type 2 diabetes mellitus without complications; E78.5 Hyperlipidemia, unspecified
CPT/HCPCS: 80053; 80061; 83036; 85025

== ENCOUNTER → 2024-05-08 16:27 | Outpatient (REF) | payer MEDICARE, BC, SELFPAY ==
[2024-05-08 12:23] LABS: % Basophils 0.5 % (0-2); % Eosinophils 1.8 % (0-6); % Immature Granulocytes 0.2 % (0-0.5); % Lymphocytes 34.2 % (20.5-51.1); % Monocytes 13.2 % (1.7-9.3); % Neutrophils 50.1 % (42.2-75.2); Absolute Eosinophils 0.1 10^3/uL (0-0.7); Absolute Lymphocytes 1.5 10^3/uL (1.2-3.4); Absolute Monocytes 0.6 10^3/uL (0.1-0.6); Absolute Neutrophils 2.2 10^3/uL (1.4-6.5); Hematocrit 36.7 % (37.0-47.0); Hemoglobin 12.8 g/dL (12.0-16.0); Mean Corp Hgb Conc. 34.9 g/dL (33.0-37.0); Mean Corpuscular Hgb 29.7 pg (27.0-31.0); Mean Corpuscular Volume 85.2 fL (81.0-99.0); Platelet Count 188 10^3/uL (130-400); Red Blood Cell Count 4.31 10^6/uL (4.20-5.40); Red Cell Dist. Width 13.8 % (11.5-14.5); White Blood Cell Count 4.4 10^3/uL (4.8-10.8)
[2024-05-08 13:14] LABS: ALT (SGPT) 36 U/L (0-35); AST (SGOT) 31 U/L (14-36); Albumin 4.7 g/dl (3.5-5.0); Alkaline Phosphatase 92 U/L (38-126); Blood Urea Nitrogen 11 mg/dl (7-17); Calcium 10.3 mg/dl (8.4-10.2); Carbon Dioxide 28 mmol/L (22-30); Chloride 102 mmol/L (98-107); Glucose 101 mg/dl (70-99); Potassium 4.1 mmol/L (3.5-5.1); Sodium 141 mmol/L (135-145); Total Bilirubin 0.5 mg/dl (0.2-1.3); eGFR > 60.00
== END ==
LOC: OIDL 16:27
PROVIDERS: ATTENDING PHYSICIAN Internal Medicine Hematology & Oncology
DX: C20 Malignant neoplasm of rectum (principal)
CPT/HCPCS: 80053; 85025

== ENCOUNTER → 2024-05-13 09:33 | Outpatient (REF) | payer MEDICARE, BC, SELFPAY ==
[2024-05-13 12:23] LABS: % Basophils 0.9 % (0-2); % Eosinophils 1.3 % (0-6); % Immature Granulocytes 0.4 % (0-0.5); % Monocytes 13.3 % (1.7-9.3); % Neutrophils 57.1 % (42.2-75.2); Absolute Eosinophils 0.1 10^3/uL (0-0.7); Absolute Lymphocytes 1.3 10^3/uL (1.2-3.4); Absolute Monocytes 0.6 10^3/uL (0.1-0.6); Absolute Neutrophils 2.7 10^3/uL (1.4-6.5); Hematocrit 36.8 % (37.0-47.0); Hemoglobin 12.6 g/dL (12.0-16.0); Mean Corp Hgb Conc. 34.2 g/dL (33.0-37.0); Mean Corpuscular Hgb 29.8 pg (27.0-31.0); Nucleated Red Blood Cells % 0 %; Platelet Count 191 10^3/uL (130-400); Red Blood Cell Count 4.23 10^6/uL (4.20-5.40); White Blood Cell Count 4.7 10^3/uL (4.8-10.8)
[2024-05-13 12:28] LABS: ALT (SGPT) 42 U/L (0-35); AST (SGOT) 41 U/L (14-36); Albumin 4.6 g/dl (3.5-5.0); Alkaline Phosphatase 90 U/L (38-126); Blood Urea Nitrogen 13 mg/dl (7-17); Calcium 9.8 mg/dl (8.4-10.2); Carbon Dioxide 27 mmol/L (22-30); Chloride 105 mmol/L (98-107); Glucose 121 mg/dl (70-99); Sodium 141 mmol/L (135-145); Total Bilirubin 0.5 mg/dl (0.2-1.3); Total Protein 6.9 g/dl (6.3-8.2); eGFR > 60.00
== END ==
LOC: HWLAB 09:33
PROVIDERS: ATTENDING PHYSICIAN Internal Medicine Hematology & Oncology; FAMILY PHYSICIAN Internal Medicine
DX: C20 Malignant neoplasm of rectum (principal)
CPT/HCPCS: 36415; 80053; 85025

== ENCOUNTER → 2024-05-23 09:39 | Outpatient (REF) | payer MEDICARE, BC, SELFPAY | LOC: RAD 09:39 | PROVIDERS: ATTENDING PHYSICIAN Internal Medicine Hematology & Oncology; FAMILY PHYSICIAN Internal Medicine | DX: C20 Malignant neoplasm of rectum (principal); C79.60 Secondary malignant neoplasm of unspecified ovary | CPT/HCPCS: 71260; 74177; Q9967 ==

== ENCOUNTER → 2024-05-27 07:55 | Outpatient (REF) | payer MEDICARE, BC, SELFPAY ==
[2024-05-27 09:31] LABS: % Immature Granulocytes 0.2 % (0-0.5); % Lymphocytes 28.6 % (20.5-51.1); % Monocytes 14.6 % (1.7-9.3); % Neutrophils 52.6 % (42.2-75.2); ALT (SGPT) 34 U/L (0-35); AST (SGOT) 38 U/L (14-36); Absolute Basophils 0.1 10^3/uL (0-0.2); Absolute Eosinophils 0.2 10^3/uL (0-0.7); Absolute Lymphocytes 1.4 10^3/uL (1.2-3.4); Absolute Monocytes 0.7 10^3/uL (0.1-0.6); Absolute Neutrophils 2.6 10^3/uL (1.4-6.5); Albumin 4.6 g/dl (3.5-5.0); Alkaline Phosphatase 86 U/L (38-126); Blood Urea Nitrogen 14 mg/dl (7-17); Calcium 9.7 mg/dl (8.4-10.2); Carbon Dioxide 27 mmol/L (22-30); Chloride 103 mmol/L (98-107); Glucose 99 mg/dl (70-99); Hemoglobin 12.9 g/dL (12.0-16.0); Mean Corp Hgb Conc. 33.9 g/dL (33.0-37.0); Mean Corpuscular Hgb 30.1 pg (27.0-31.0); Mean Corpuscular Volume 88.6 fL (81.0-99.0); Mean Platelet Volume 8.9 fL (7.4-10.4); Nucleated Red Blood Cells % 0 %; Platelet Count 178 10^3/uL (130-400); Potassium 4.1 mmol/L (3.5-5.1); Red Blood Cell Count 4.29 10^6/uL (4.20-5.40); Sodium 141 mmol/L (135-145); Total Bilirubin 0.5 mg/dl (0.2-1.3); Total Protein 6.8 g/dl (6.3-8.2); White Blood Cell Count 4.9 10^3/uL (4.8-10.8); eGFR > 60.00
== END ==
LOC: HWLAB 07:55
PROVIDERS: ATTENDING PHYSICIAN Internal Medicine Hematology & Oncology; FAMILY PHYSICIAN Internal Medicine
DX: C20 Malignant neoplasm of rectum (principal); C79.60 Secondary malignant neoplasm of unspecified ovary
CPT/HCPCS: 36415; 80053; 85025

== ENCOUNTER → 2024-06-10 08:13 | Outpatient (REF) | payer MEDICARE, BC, SELFPAY ==
[2024-06-10 10:20] LABS: % Basophils 0.7 % (0-2); % Eosinophils 2.2 % (0-6); % Immature Granulocytes 0.4 % (0-0.5); % Lymphocytes 20.6 % (20.5-51.1); % Monocytes 13.6 % (1.7-9.3); % Neutrophils 62.5 % (42.2-75.2); Absolute Eosinophils 0.1 10^3/uL (0-0.7); Absolute Lymphocytes 1.2 10^3/uL (1.2-3.4); Absolute Monocytes 0.8 10^3/uL (0.1-0.6); Absolute Neutrophils 3.5 10^3/uL (1.4-6.5); Hematocrit 37.9 % (37.0-47.0); Mean Corp Hgb Conc. 34.3 g/dL (33.0-37.0); Mean Corpuscular Hgb 30.9 pg (27.0-31.0); Mean Platelet Volume 10.2 fL (7.4-10.4); Nucleated Red Blood Cells % 0.4 %; Platelet Count 143 10^3/uL (130-400); Red Blood Cell Count 4.21 10^6/uL (4.20-5.40); Red Cell Dist. Width 15.9 % (11.5-14.5); White Blood Cell Count 5.6 10^3/uL (4.8-10.8)
[2024-06-10 10:24] LABS: ALT (SGPT) 22 U/L (0-35); AST (SGOT) 32 U/L (14-36); Albumin 4.6 g/dl (3.5-5.0); Alkaline Phosphatase 83 U/L (38-126); Blood Urea Nitrogen 16 mg/dl (7-17); Carbon Dioxide 27 mmol/L (22-30); Chloride 103 mmol/L (98-107); Glucose 114 mg/dl (70-99); Potassium 4.6 mmol/L (3.5-5.1); Sodium 141 mmol/L (135-145); Total Bilirubin 0.6 mg/dl (0.2-1.3); eGFR > 60.00
== END ==
LOC: HWLAB 08:13
PROVIDERS: ATTENDING PHYSICIAN Internal Medicine Hematology & Oncology; FAMILY PHYSICIAN Internal Medicine
DX: C20 Malignant neoplasm of rectum (principal); C79.60 Secondary malignant neoplasm of unspecified ovary
CPT/HCPCS: 36415; 80053; 85025

== ENCOUNTER → 2024-06-19 08:22 | Outpatient (REF) | payer MEDICARE, BC, SELFPAY | LOC: MRI 08:22 | PROVIDERS: ATTENDING PHYSICIAN Internal Medicine Hematology & Oncology; FAMILY PHYSICIAN Internal Medicine; REFERRING PHYSICIAN Surgery | DX: C79.60 Secondary malignant neoplasm of unspecified ovary (principal); C20 Malignant neoplasm of rectum | CPT/HCPCS: 72197; A9575 ==

== ENCOUNTER → 2024-06-24 07:04 | Outpatient (REF) | payer MEDICARE, BC, SELFPAY ==
[2024-06-24 09:34] LABS: % Basophils 0.8 % (0-2); % Eosinophils 2.3 % (0-6); % Immature Granulocytes 0.3 % (0-0.5); % Lymphocytes 30.5 % (20.5-51.1); % Monocytes 14.6 % (1.7-9.3); % Neutrophils 51.5 % (42.2-75.2); Absolute Eosinophils 0.1 10^3/uL (0-0.7); Absolute Lymphocytes 1.2 10^3/uL (1.2-3.4); Absolute Monocytes 0.6 10^3/uL (0.1-0.6); Hematocrit 36.8 % (37.0-47.0); Hemoglobin 12.5 g/dL (12.0-16.0); Mean Corpuscular Hgb 30.6 pg (27.0-31.0); Nucleated Red Blood Cells % 0.5 %; Platelet Count 126 10^3/uL (130-400); Red Blood Cell Count 4.09 10^6/uL (4.20-5.40); Red Cell Dist. Width 15.3 % (11.5-14.5); White Blood Cell Count 3.8 10^3/uL (4.8-10.8)
[2024-06-24 09:53] LABS: ALT (SGPT) 28 U/L (0-35); AST (SGOT) 38 U/L (14-36); Albumin 4.2 g/dl (3.5-5.0); Alkaline Phosphatase 82 U/L (38-126); Blood Urea Nitrogen 14 mg/dl (7-17); Calcium 9.7 mg/dl (8.4-10.2); Carbon Dioxide 28 mmol/L (22-30); Chloride 107 mmol/L (98-107); Glucose 122 mg/dl (70-99); Potassium 4.3 mmol/L (3.5-5.1); Sodium 141 mmol/L (135-145); Total Bilirubin 0.4 mg/dl (0.2-1.3); Total Protein 6.8 g/dl (6.3-8.2); eGFR > 60.00
== END ==
LOC: HWLAB 07:04
PROVIDERS: ATTENDING PHYSICIAN Internal Medicine Hematology & Oncology; FAMILY PHYSICIAN Internal Medicine
DX: C20 Malignant neoplasm of rectum (principal); C79.60 Secondary malignant neoplasm of unspecified ovary
CPT/HCPCS: 36415; 80053; 85025

== ENCOUNTER → 2024-07-08 07:25 | Outpatient (REF) | payer MEDICARE, BC, SELFPAY ==
[2024-07-08 09:19] LABS: % Eosinophils 1.6 % (0-6); % Immature Granulocytes 0.3 % (0-0.5); % Lymphocytes 34.6 % (20.5-51.1); % Monocytes 19.7 % (1.7-9.3); % Neutrophils 42.8 % (42.2-75.2); Absolute Eosinophils 0.1 10^3/uL (0-0.7); Absolute Lymphocytes 1.1 10^3/uL (1.2-3.4); Absolute Monocytes 0.6 10^3/uL (0.1-0.6); Absolute Neutrophils 1.4 10^3/uL (1.4-6.5); Hematocrit 37.1 % (37.0-47.0); Hemoglobin 12.5 g/dL (12.0-16.0); Mean Corp Hgb Conc. 33.7 g/dL (33.0-37.0); Mean Corpuscular Hgb 30.5 pg (27.0-31.0); Mean Corpuscular Volume 90.5 fL (81.0-99.0); Mean Platelet Volume 9.7 fL (7.4-10.4); Nucleated Red Blood Cells % 0.6 %; Platelet Count 108 10^3/uL (130-400); Red Cell Dist. Width 14.9 % (11.5-14.5); White Blood Cell Count 3.2 10^3/uL (4.8-10.8)
[2024-07-08 10:40] LABS: ALT (SGPT) 30 U/L (0-35); AST (SGOT) 39 U/L (14-36); Albumin 4.2 g/dl (3.5-5.0); Alkaline Phosphatase 94 U/L (38-126); Blood Urea Nitrogen 14 mg/dl (7-17); Calcium 9.5 mg/dl (8.4-10.2); Carbon Dioxide 24 mmol/L (22-30); Chloride 107 mmol/L (98-107); Glucose 103 mg/dl (70-99); Potassium 3.9 mmol/L (3.5-5.1); Sodium 138 mmol/L (135-145); Total Bilirubin 0.5 mg/dl (0.2-1.3); Total Protein 6.6 g/dl (6.3-8.2); eGFR > 60.00
== END ==
LOC: HWLAB 07:25
PROVIDERS: ATTENDING PHYSICIAN Internal Medicine Hematology & Oncology; FAMILY PHYSICIAN Internal Medicine
DX: C20 Malignant neoplasm of rectum (principal); C79.60 Secondary malignant neoplasm of unspecified ovary
CPT/HCPCS: 36415; 80053; 85025

== ENCOUNTER → 2024-07-19 07:11 | Outpatient (REF) | payer MEDICARE, BC, SELFPAY ==
[2024-07-19 11:08] LABS: ALT (SGPT) 22 U/L (0-35); AST (SGOT) 34 U/L (14-36); Albumin 4.1 g/dl (3.5-5.0); Alkaline Phosphatase 135 U/L (38-126); Blood Urea Nitrogen 8 mg/dl (7-17); Calcium 9.8 mg/dl (8.4-10.2); Carbon Dioxide 28 mmol/L (22-30); Chloride 106 mmol/L (98-107); Glucose 112 mg/dl (70-99); Sodium 141 mmol/L (135-145); Total Bilirubin 0.5 mg/dl (0.2-1.3); Total Protein 6.5 g/dl (6.3-8.2); eGFR > 60.00
[2024-07-19 11:49] LABS: % Basophils 0.4 % (0-2); % Eosinophils 0.8 % (0-6); % Immature Granulocytes 7.9 % (0-0.5); % Lymphocytes 17.1 % (20.5-51.1); % Monocytes 18.5 % (1.7-9.3); % Neutrophils 55.3 % (42.2-75.2); Absolute Basophils 0.1 10^3/uL (0-0.2); Absolute Eosinophils 0.1 10^3/uL (0-0.7); Absolute Immature Granulocytes 1.1 10^3/uL (0-0.05); Absolute Lymphocytes 2.4 10^3/uL (1.2-3.4); Absolute Monocytes 2.5 10^3/uL (0.1-0.6); Absolute Neutrophils 7.6 10^3/uL (1.4-6.5); Hematocrit 37.2 % (37.0-47.0); Hemoglobin 12.8 g/dL (12.0-16.0); Mean Corp Hgb Conc. 34.4 g/dL (33.0-37.0); Mean Corpuscular Hgb 30.8 pg (27.0-31.0); Mean Corpuscular Volume 89.6 fL (81.0-99.0); Mean Platelet Volume 9.7 fL (7.4-10.4); Platelet Count 92 10^3/uL (130-400); Red Blood Cell Count 4.15 10^6/uL (4.20-5.40); Red Cell Dist. Width 15.2 % (11.5-14.5); White Blood Cell Count 13.8 10^3/uL (4.8-10.8)
== END ==
LOC: HWLAB 07:11
PROVIDERS: ATTENDING PHYSICIAN Internal Medicine Hematology & Oncology; FAMILY PHYSICIAN Internal Medicine
DX: C20 Malignant neoplasm of rectum (principal); C79.60 Secondary malignant neoplasm of unspecified ovary
CPT/HCPCS: 36415; 80053; 85025

== ENCOUNTER → 2024-08-19 08:49 | Outpatient (REF) | payer MEDICARE, BC, SELFPAY | LOC: RAD 08:49 | PROVIDERS: ATTENDING PHYSICIAN Obstetrics & Gynecology Gynecologic Oncology; FAMILY PHYSICIAN Nurse Practitioner Pediatrics; OTHER PHYSICIAN Internal Medicine Hematology & Oncology; OTHER PHYSICIAN Surgery; OTHER PHYSICIAN Urology | DX: C20 Malignant neoplasm of rectum (principal); C79.60 Secondary malignant neoplasm of unspecified ovary | CPT/HCPCS: 71260; 74177; Q9967 ==

== ENCOUNTER → 2024-08-29 09:07 | Outpatient (REF) | payer MEDICARE, BC, SELFPAY ==
[2024-08-29 12:16] LABS: Hematocrit 38.5 % (37.0-47.0); Hemoglobin 13.0 g/dL (12.0-16.0); Mean Corp Hgb Conc. 33.8 g/dL (33.0-37.0); Mean Corpuscular Volume 91.2 fL (81.0-99.0); Nucleated Red Blood Cells % 0 %; Platelet Count 236 10^3/uL (130-400); Red Cell Dist. Width 13.4 % (11.5-14.5)
== END ==
LOC: HWLAB 09:07
PROVIDERS: ATTENDING PHYSICIAN Internal Medicine
DX: Z01.818 Encounter for other preprocedural examination (principal); D69.6 Thrombocytopenia, unspecified
CPT/HCPCS: 36415; 85025

== ENCOUNTER 2024-09-05 06:12 | Inpatient (IN) | payer MEDICARE, BC, SELFPAY ==
[2024-08-23 14:30] VITALS: BMI 22.7
--- NOTE | 2024-08-30 17:07 | PTCARENOTE ---
Abnormal ECG on 06/11/2024, Dr. Godinez notified, no further orders at this time.
[2024-09-03 11:25] LABS: INR 0.95; PT 13.2 Sec (11.4-14.6)
[2024-09-03 11:26] LABS: APTT 26.1 Sec (23.4-35.0)
[2024-09-03 11:55] LABS: ALT (SGPT) 24 U/L (0-35); AST (SGOT) 31 U/L (14-36); Albumin 4.7 g/dl (3.5-5.0); Alkaline Phosphatase 92 U/L (38-126); Blood Urea Nitrogen 12 mg/dl (7-17); Calcium 10.0 mg/dl (8.4-10.2); Carbon Dioxide 27 mmol/L (22-30); Chloride 104 mmol/L (98-107); Estimated Creatinine Clearance 75 ml/min; Glucose 107 mg/dl (70-99); Potassium 4.5 mmol/L (3.5-5.1); Sodium 140 mmol/L (135-145); Total Protein 7.1 g/dl (6.3-8.2); eGFR > 60.00
[2024-09-03 12:40] LABS: CEA 11.8 ng/ml
[2024-09-03 13:00] LABS: Glycohemoglobin (HgbA1c) 6.0 % (4.0-5.6)
[2024-09-05] VITALS (18 sets, daily range): BP systolic 91–114; BP diastolic 41–94; BMI 22.7
[2024-09-05] MEDS: NORMOSOL-R/PLASMALYTE-A 1000 IV ×2 (06:46→15:54)
[2024-09-05 06:56] LABS: Glucose - Point of Care 116 mg/dl (70-99)
[2024-09-05] MEDS: NEURONTIN 600 MG PO (06:57)
[2024-09-05] MEDS: TYLENOL 1000 MG PO (06:57)
[2024-09-05] MEDS: HEPARIN 5000 UNITS SC (06:58)
--- NOTE | 2024-09-05 07:05 | VATNOTE ---
09/05 RN requested patient port to be accessed. Patient has an existing right accessory cephalic 18p. RN and anesthesiologist requesting port to be accessed for second access. Patient and staff educated on increased risk of infection with port. Port
was accessed under sterile technique.
[2024-09-05 10:07] LABS: Glucose - Point of Care 166 mg/dl (70-99)
--- NOTE | 2024-09-05 10:26 | OR.RPT ---
Operative Report
Operative Report
Date of procedure: September 05, 2024
Preoperative diagnosis: Colon cancer with metastasis to the left ovary
Postoperative diagnosis same
Surgeon: Bert Kenny
Anesthesia: General
Procedure in detail the patient was brought to the operating room by Dr. Von Salguero in colorectal surgery for resection of colon cancer. Patient has had neoadjuvant chemotherapy. At initial presentation she had ureteral obstruction and was
managed with placement of a ureteral stent on the left side as well as a diverting loop descending colostomy. Upon arrival to the operating room she was placed in supine position, general anesthesia was administered, she was intubated without any
difficulty. Appropriate IVs were placed, she was positioned in lithotomy using yellowfin stirrups and prepped in the abdomen perineum and vagina. She was draped. Urology team removed the existing stent after performing cystoscopy, and placed
bilateral single-J ureteral stents and Martinez catheter in the bladder. Following this the drapes were removed and the patient was reprepped and draped. I performed a pelvic exam, anterior lip of the cervix was grasped with single-tooth tenaculum,
uterine canal was gradually dilated up to 21 Hegar dilator, ZUMI retractor was placed in the uterus, next colorectal surgery team performed takedown of existing colostomy and placement of ports and docked the robotic system with the patient in
Trendelenburg. For my portion of the procedure I ligated the round ligament on the left side close to the sidewall, open the retroperitoneal spaces and identified the course of the ureter. I skeletonized the infundibulopelvic ligament and sealed
the ovarian vessels 3 times and this was divided the ovary was scarred and attached to the left aspect of colonic epiploica and colonic serosa I did not separate the ovary from the colon. I was able to detach the left fallopian tube. The left
round ligament and the left utero-ovarian ligament from the uterus and the specimen of left tube and ovary and round ligament was left attached to the uterus. There was extensive fibrosis and probable area of treated tumor along the left pelvic
sidewall this was resected, this peritoneum essentially light over the portion of the ureter that was probably the point of her previous obstruction frozen section on this peritoneum reveals fibrosis and chronic inflammation with no evidence of
malignancy. I turned the case over to colorectal surgery where they proceeded to perform low anterior resection and she did not require any further any intervention with regard to the ureter. I informed the patient of the findings. The patient
was very specific in her request not to perform uterus and cervix as well as right tube and ovary. Due to this I did inspect the uterus and cervix as well as right tube and ovary and they appeared grossly within normal limits and not involved with
the primary tumor inherent stable left in situ as per her wishes. Counts of laps instruments and needle was correct x 2 for my portion of the procedure.
EBL: 20 cc
Complications: None
Specimen: Left pelvic sidewall peritoneum, left tube and ovary attached to the sigmoid colon specimen
[2024-09-05 12:47] LABS: Glucose - Point of Care 170 mg/dl (70-99)
--- NOTE | 2024-09-05 13:49 | W.IMMPOSTOP ---
Surgical Immed Post Op Note
-
Primary Surgeon: Edisonfer
Assisting Surgeon: -
Pre-op Diagnosis: L ureteral obstruction
Post-op Diagnosis: same
Procedure Performed: Cystoscopy, bilateral ureteral stent placement, ICG, Robotic L ureterolysis, L ureteral stent exchange
Anesthesia Type: gen
Specimen / Cultures: none
Estimated Blood Loss: none
Complications: none
Operative Findings:
L ureter not directly invaded by tumor
negative frozen section biopsy adjacent to ureter
fibrosis lysed to free ureter in region of stenosis
ureteral stent replaced
--- NOTE | 2024-09-05 13:51 | W.OR.REC1 ---
Addendum entered and electronically signed by Von Salguero MD 09/05/24 16:31:
Correction to findings--distended left ureter not ovary;.
Also, another specimen was distal anastomotic donut.
Original Note:
Rectal Surgery Post Op Note
Immediate Post Op
Primary Surgeon: Nadia Salguero MD
Assisting Surgeon: CIARAN Salazar
Urologist: Grace Crowe
Pre-op Diagnosis: rectal cancer
Post-op Diagnosis: rectal cancer
Procedure Performed: 1) takedown colostomy 2) robotic low-anterior resection (LAR) (with en-bloc left salpingoophorectomy (by Dr. Kenny) and left ureterolysis (by Dr. Crowe)) 2) flexible sigmoidoscopy
Anesthesia Type: general plus local
Specimen / Cultures: 1) [address] Kenny (?left paracolic gutter and another for frozen) 2) colostomy 3) rectosigmoid with stitch marking distal
Estimated Blood Loss: 150 cc
Complications: no immediate
Operative Findings: 1) upper rectal disease with attached left fallopian tube and ovary and distal tattooing 2) distended left ovary without obvious ureteral involvement 3) no obvious evidence for metastatic disease 4) eventual anastomosis at 5-6
cm from anal verge
#19 Henry in pelvis.
Martinez, L stent (double J) by Dr. Crowe.
Sending to med surg.
Cancer Report
ASA Score: III
Case Status: Elective
Operation: Low anterior resection (see above for other details)
Modailty: Robotic
Location of tumor within rectum: High
Height of lower edge of tumor from anal verge: 14 cm
Mobilization of splenic flexure: No
Level of ligation of inferior mesenteric artery: Inferior mesenteric artery
Level of ligation of inferior mesenteric vein: Low
Level of rectal transectiondistal to distal edge of tumor: 4 cm
Type of Reconstruction: Stapled end-end
Anastomotic testing method(s): Rectal air infusion under pelvic fluid (with flexible sigmoidoscopy )
Creation of stoma: No
En bloc resection: Other (left fallopian tube and ovary)
Metastectomy: No
Completeness of tumor resection: R0
Interoperative Complications: No
Blood transfusion: No
Total Mesorectal Excision photographed: in pathology
[2024-09-05 14:29] LABS: Hematocrit 34.7 % (37.0-47.0); Hemoglobin 12.0 g/dL (12.0-16.0); Mean Corp Hgb Conc. 34.6 g/dL (33.0-37.0); Mean Corpuscular Volume 89.4 fL (81.0-99.0); Nucleated Red Blood Cells % 0 %; Platelet Count 205 10^3/uL (130-400); Red Cell Dist. Width 13.2 % (11.5-14.5)
[2024-09-05 15:05] LABS: Blood Urea Nitrogen 8 mg/dl (7-17); Calcium 7.9 mg/dl (8.4-10.2); Carbon Dioxide 21 mmol/L (22-30); Chloride 108 mmol/L (98-107); Estimated Creatinine Clearance 88 ml/min; Glucose 169 mg/dl (70-99); Magnesium 1.9 mg/dl (1.6-2.3); Potassium 3.8 mmol/L (3.5-5.1); Sodium 137 mmol/L (135-145); eGFR > 60.00
[2024-09-05] MEDS: TORADOL 10 MG IV ×2 (15:20→21:19)
[2024-09-05] MEDS: GENOPTIC 0.3% EYE DROPS 1 DROP OPHTH ×2 (15:20→20:45)
[2024-09-05] MEDS: DILAUDID 0.5 MG IV (15:49)
[2024-09-05] MEDS: TYLENOL PO (16:06)
--- NOTE | 2024-09-05 16:43 | PTCARENOTE ---
S patient received from PACU nurse Sallie. AAOx3, drowsy due to narcotic administration in PACU. Patient came with 6/10 right eye pain. Right eye is sealed shut.
B patient admitted with cystoscopy, bilateral ureteral stent placement, ICG, Robotic L ureterolysis, L ureteral stent exchange
A see online database
R RN administered warm compress and elevated HOB. Lights were dimmed and advised to inform nurse if pain worsen.
[2024-09-05 16:55] LABS: Glucose - Point of Care 195 mg/dl (70-99)
[2024-09-05] MEDS: TYLENOL 650 MG PO (20:45)
[2024-09-05] MEDS: ZOFRAN 4 MG IV (20:50)
[2024-09-05] MEDS: MURO 5% OPHTHALMIC OINTMENT 1 APPLIC OPHTH (20:59)
[2024-09-05] MEDS: SINGULAIR 10 MG PO (21:00)
[2024-09-05] MEDS: LIPITOR 10 MG PO (21:00)
[2024-09-05] MEDS: FLOMAX 0.4 MG PO (21:15)
[2024-09-06] MEDS: GENOPTIC 0.3% EYE DROPS 1 DROP OPHTH ×6 (00:05→19:53)
[2024-09-06] MEDS: TYLENOL 650 MG PO ×6 (00:08→19:51)
[2024-09-06] MEDS: NORMOSOL-R/PLASMALYTE-A 1000 IV (02:45)
[2024-09-06] MEDS: TORADOL 10 MG IV ×4 (03:00→21:52)
[2024-09-06 03:51] VITALS: BP 111/44
[2024-09-06 05:22] LABS: Hematocrit 30.3 % (37.0-47.0); Hemoglobin 10.5 g/dL (12.0-16.0); Mean Corp Hgb Conc. 34.7 g/dL (33.0-37.0); Mean Corpuscular Volume 89.6 fL (81.0-99.0); Nucleated Red Blood Cells % 0 %; Platelet Count 151 10^3/uL (130-400); Red Cell Dist. Width 13.2 % (11.5-14.5)
[2024-09-06 05:42] LABS: Blood Urea Nitrogen 11 mg/dl (7-17); Calcium 8.8 mg/dl (8.4-10.2); Carbon Dioxide 24 mmol/L (22-30); Chloride 109 mmol/L (98-107); Estimated Creatinine Clearance 88 ml/min; Glucose 132 mg/dl (70-99); Magnesium 2.2 mg/dl (1.6-2.3); Potassium 4.5 mmol/L (3.5-5.1); Sodium 138 mmol/L (135-145); eGFR > 60.00
[2024-09-06 06:00] VITALS: BMI 23.6
[2024-09-06] MEDS: FOLVITE 1 MG PO (07:38)
[2024-09-06] MEDS: VITAMIN B1 100 MG PO (07:39)
[2024-09-06] MEDS: PROTONIX 40 MG PO (07:39)
[2024-09-06] MEDS: RELISTOR 12 MG SC (07:43)
[2024-09-06 07:55] VITALS: BP 97/48
--- NOTE | 2024-09-06 09:47 | CM ---
CM following re: discharge planning.
Reviewed pt's chart, met with pt and pt's at bedside.
Pt is a 63 year old female, admitted with primary dx of POD#1 s/p Cystoscopy, bilateral ureteral stent placement, ICG, Robotic L ureterolysis, L ureteral stent exchange.
Pt reports she lives with in a 2SH, 2 steps to enter, has no children, has 3 dogs. Pt described herself as independent in all areas [employer], had [facility] in the past. Pt reports she has neuropathy and pt is requested [facility] upon the discharge.
A referral to [facility] made.
PT and OT will evaluate the pt to determine a level of care at discharge.
PCP: Sheila Pack
Pharmacy: [facility]
D/C plan: per pt's request, home with [facility] and family support. to transport at discharge.
CM will follow with discharge plan updates as hospitalization progresses
[2024-09-06 12:00] LABS: Hematocrit 29.5 % (37.0-47.0); Hemoglobin 10.2 g/dL (12.0-16.0)
--- NOTE | 2024-09-06 12:53 | W.PN.CRS1 ---
Today's Communication / Plan
-
Hold on Lovenox.
PT/OT/out of bed.
Trial of clears.
Assessment/Plan
-
POD 1.
1. Afebrile. Nontachycardic. BP borderline low. Will hold Flomax. On antihypertensives. Hospitalist consult for further management.
2. JACKIE output somewhat sanguinous and the dressing was soaked. Hemoglobin 10.5 this morning from 12.0. Rechecked recently and came back 10.2. Doubt 'active bleeding '. However will hold Lovenox this evening. Continue teds/SCDs. Hemoglobin to
be rechecked in the a.m.
3. WBC up postoperatively. Will follow. Likely related to stress of surgery.
4. PT OT/out of bed.
5. Continue Martinez for today. Anticipate removal tomorrow. Will be at risk for urinary retention given pelvic dissection.
6. Trial clears.
7. Continue other measures.
Subjective Data
Procedure
robotic LAR with en-bloc left salpingoophorectomy and left ureterolysis on 09/06/24
Subjective Data
Date of Service: September 06, 2024
A bit of nausea last night but not this morning. Hungry.
Admitted to some flatus.
Some incisional discomfort.
BP borderline low overnight.
Objective Data
-
Vital Signs
Temp Pulse Resp BP Pulse Ox
99.0 F 80 16 97/48 94
09/06/24 07:55 09/06/24 07:55 09/06/24 07:55 09/06/24 07:55 09/06/24 07:55
Intake & Output
09/05/24 09/06/24 09/07/24
06:59 06:59 06:59
Intake Total 400 / 400 120 / 120
Output Total 2475 / 2475 850 / 850
Balance -2075 / -2074 -730 / -730
Intake:
Oral fluids 120 / 120
IV fluids (Total) 400 / 400
Normosal 400 / 400
Output:
Drain Output (Total) 300 / 300
Right Abdomen Garrett-Rodriguez 300 / 300
Urine, Martinez 2175 / 2175 850 / 850
Lab Results
09/06/24 11:44
09/06/24 05:00
Physical Exam
-
General: No Acute Distress
Chest: Clear
Cardiovascular: Regular Rate & Rhythm
Abdomen: Distended (mild incisional) and Other (JACKIE with SS drainage towards the sanguinous side.)
Extremities: No Edema
Skin: Warm and Good Color
Incision: No Skin Erythema and Other (left dressing soaked--changed--no evidence for active bleeding)
[2024-09-06 14:35] VITALS: BP 110/47; PULSE 87; O2SAT 94
--- NOTE | 2024-09-06 14:52 | W.PN.URO.CBU ---
Today's Communication / Plan
-
Trial of void tomorrow
Plan for ureteral stent removal in about 5 weeks
Assessment / Plan
-
63F with rectal cancer and L ureteral obstruction
s/p robotic L ureterolysis and L ureteral stent exchange during LAR by Dr. Salguero 09/05/24
- Martinez can be removed per CRS - plan for 09/07
- Recommend post void residual bladder scan given patient's high capacity bladder on imaging. Some mild to moderate residual may be expected
- Plan for ureteral stent removal in about 5 weeks
Diagnosis
-
Date of Service: September 06, 2024
-
Patient Diagnosis:
L ureteral obstruction
Post Op Day: s/p robotic L ureterolysis and L ureteral stent exchange during LAR by Dr. Salguero
Subjective
-
pain controlled
catheter draining well
Objective
-
Vital Signs
Temp Pulse Resp BP Pulse Ox
99.0 F 80 16 97/48 94
09/06/24 07:55 09/06/24 07:55 09/06/24 07:55 09/06/24 07:55 09/06/24 07:55
Intake and Output
09/05/24 09/06/24 09/07/24
06:59 06:59 06:59
Intake Total 400 / 400 120 / 120
Output Total 2475 / 2475 850 / 850
Balance -2075 / -2075 -730 / -730
Intake:
Oral fluids 120 / 120
IV fluids (Total) 400 / 400
Normosal 400 / 400
Output:
Drain Output (Total) 300 / 300
Right Abdomen Garrett-Rodriguez 300 / 300
Urine, Martinez 2175 / 2175 850 / 850
Laboratory Results
09/06/24 11:44
09/06/24 05:00
Physical Exam
-
General - well developed, well nourished, no acute distress
Chest - clear
Abdomen - soft, non-tender
Martinez in place, pink urine, mild clot debris
Skin - warm & dry with no rash
Neuro - AOx3, no motor deficits
Extremities - no clubbing, no cyanosis, no edema
Incision - clean, dry
Dressing - clean, dry, intact
--- NOTE | 2024-09-06 15:05 | CON.HOSP ---
Family Physician
-
Family Physician: Sheila Pack
Chief Complaint
-
Hypotension postop
History of Present Illness
63-year-old female status post LAR with en-bloc left salpingoophorectomy and left ureterolysis on 09/05/2024 who developed hypotension in the evening 90s over 50s despite IV fluid. She was on Norvasc 2.5 mg daily however did not receive this a.m.
she did receive Flomax yesterday evening. She has a Martinez catheter in place draining sanguinous drainage and a JACKIE drain to the abdomen. She reports some chills but the room is very cold. She does have a low-grade temp of 99F. She denies
headache, dizziness, lightheadedness, sore throat, chest pain, palpitations, cough, shortness of breath, nausea, vomiting, diarrhea, rash.
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 The ureteral
stent was placed by urology Dr. Crowe the ovary was removed by . Her manual BP was 96/50 at bedside.
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
left salpingo-oophorectomy and left ureterolysis
Medical History
Past Medical History
Past Medical History: Reports Other
Additional Past Medical History:
HTN
HLD
GERD
anxiety
asthma
active smoker
Adenocarcinoma rectosigmoid status post colostomy February, chemo started in March
adenocarcinoma rectosigmoid involving left ovary status post left salpingo-oophorectomy and left ureterolysis
Past Surgical History: Reports Other
Additional Past Surgical History:
Right hip dermatology procedure
Cyst removal from face 11/25/2018
Cataract extraction right eye April 2021
Adenocarcinoma rectosigmoid status post colostomy February
Robotic LAR with en-bloc left salpingoophorectomy and left ureterolysis on 09/05/2024 for rectosigmoid cancer adenocarcinoma involving left ovary
Social History
Tobacco: Smoker
Alcohol: Former (stopped 2 glasses day 1 month ago)
Personal:
Living: With Family
Employment: Retired
Family History
Family History: Reviewed & Not Pertinent
Allergies / Home Medications
Allergies reflects when Allergies were last updated in [facility].
Home Medications with original date entered in [facility]
Allergy/Medication List:
Allergies
Allergy/AdvReac Type Severity Reaction Status Date / Time
cefdinir Allergy Rash Verified 09/05/24 06:26
doxycycline Allergy Rash Verified 09/05/24 06:26
lisinopril AdvReac cough/vomit Verified 09/05/24 06:26
ing
Home Medications
albuterol sulfate 90 mcg/actuation aerosol inhaler 2 puff inhalation R QIDPRN PRN sob 02/22/24
amlodipine 2.5 mg tablet (Norvasc) 2.5 mg PO DAILY Blood Pressure 02/22/24
montelukast 10 mg tablet (Singulair) 10 mg PO .@ 1999 asthma 02/22/24
simvastatin 20 mg tablet (Zocor) 20 mg PO .@ 1999 High Cholesterol 02/22/24
folic acid 1 mg tablet 1 mg PO DAILY Supplement 1 month #30 tabs 02/26/24
chlorhexidine gluconate 0.12 % mouthwash 15 ml mucous membrane .@ 1999 MOUTH 03/01/24
diphenhydramine 25 mg-acetaminophen 500 mg tablet (Tylenol PM Extra Strength) 1 tab PO .HS @ 1999 PRN sleep 03/01/24
melatonin 2 mg-soy iso 56 mg-black cohosh 40 mg-calcium 112 mg tablet (Estroven Sleep Cool) 1 tab PO .HS @ 1999 Supplement 03/01/24
sodium chloride 5 % eye ointment (Barry 128) 1 applic ophthalmic (eye) .HS @2000 Eye Condition 03/01/24
famotidine 20 mg tablet 20 mg PO DAILY@1600 Gastrointestinal Issue 03/22/24
B Complex 1 dose PO DAILY Supplement 08/29/24
bisacodyl 5 mg tablet,delayed release (Dulcolax (bisacodyl)) 5 mg PO ONCE PRN constipation 08/29/24
loperamide 2 mg capsule 2 mg PO DAILY DIARRHEA 08/29/24
metronidazole 500 mg PO DIRECTED Infection 08/29/24
neomycin 500 mg PO DIRECTED Infection 08/29/24
nicotine (polacrilex) 2 mg gum 4 mg PO Q1HPRN PRN tobacco cessation 08/29/24
pantoprazole 40 mg tablet,delayed release 40 mg PO DAILY GERD 08/29/24
sodium sul 1.479 gram-potas ch 0.188 gram-magnes sul 0.225 gram tablet (Sutab) 1 tab PO DIRECTED Supplement 08/29/24
thiamine HCl (vitamin B1) 100 mg tablet 100 mg PO DAILY Supplement 08/29/24
Review of Systems
-
History Source: Patient
A 12 point Review of Systems was completed except as noted: Yes
Constitutional: Denies Fatigue or Chills
EENT: Denies Sore Throat or Runny Nose
Respiratory: Denies Cough or Trouble Breathing
Cardiac: Denies Chest Pain, Diaphoresis, Palpitations or Syncope
Abdomen/GI: Reports Abdominal Pain (Postop) and Other (JACKIE drains intact small amount serous drainage); Denies Nausea, Vomiting, Diarrhea, Constipated, Bloody Stools or Black Stools
: Reports Martinez (Draining small amount sanguinous in color status post ureteral stent); Denies Flank Pain
Musculoskeletal: Denies Joint Pain or Edema
Skin: Denies Itching or Rash
Neurological: Denies Dizzy, Headache or Weakness
Endocrine: Reports No Symptoms
Hematologic/Lymphatic: Reports No Symptoms
Psych: Reports Calm
Physical Exam
Vital Signs
Vital Signs
Temp Pulse Resp BP Pulse Ox
99.0 F 80 16 97/48 94
09/06/24 07:55 09/06/24 07:55 09/06/24 07:55 09/06/24 07:55 09/06/24 07:55
Physical Exam
General: Comfortable and Chills; Negative Pain or Fever
HEENT: Normocephalic and Anicteric
Respiratory: Clear; Negative Wheezes, Rales or Rhonchi
Cardiac: S1/S2 and Regular Rhythm; Negative Murmur, Rub or Peripheral Edema
Breast: Deferred by me
GI: Soft, Normal Bowel Sounds, Tender (At surgical site) and Other (JACKIE drains intact small amount serous drainage)
Genito-urinary: Martinez Catheter (Draining scant amount sanguinous drainage)
Musculoskeletal: No Clubbing, No Cyanosis and No Edema
Skin: Warm and Dry; Negative Rash
Neuro: No Motor Deficits and Nonfocal/Grossly Intact; Negative AO x 3, Slurred Speech, Facial Droop, Tremors or Sedated
Psych: Calm
Laboratory Results
-
Laboratory Results
09/06/24 11:44
09/06/24 05:00
PT 13.2 Sec (11.4-14.6) 09/03/24 09:13
INR 0.95 09/03/24 09:13
APTT 26.1 Sec (23.4-35.0) 09/03/24 09:13
Total Bilirubin 0.9 mg/dl (0.2-1.3) 09/03/24 09:13
AST 31 U/L (14-36) 09/03/24 09:13
ALT 24 U/L (0-35) 09/03/24 09:13
Alkaline Phosphatase 92 U/L (38-126) 09/03/24 09:13
Data Reviewed
-
Lab Data: Labs Reviewed
Impression / Plan
-
Medical consultation
#Acute hypotension status post LAR with en-bloc left salpingoophorectomy and left ureterolysis on 09/05/2024 concern possibly volume depletion, BP meds versus SIRS/sepsis
#Hx essential HTN
-BP 97/49 persistent since 09/05/2024, manual BP 96/50
- Stop Norvasc 2.5 mg daily, stop Flomax at bedtime-patient did not receive Norvasc this a.m.
- Patient getting Normosol with electrolytes at 80 cc an hour that just finished
- Change to IV NSS 100 cc/h
- Follow vitals every 4 hours
- Being followed by Dr. Crowe with recommendations ureteral stent removal 5 weeks, Martinez be removed plan for 09/07/2024
#Acute leukocytosis could be reactive from surgery versus infectious source
WBC 19 > 16.6 yesterday 09/05/2024 was 7.6 on 08/29/2024
-Check lactic acid, blood cultures x 2
- Will add Zosyn every 6 hours
#Robotic LAR with en-bloc left salpingoophorectomy and left ureterolysis on 09/05/2024 for rectosigmoid cancer adenocarcinoma involving left ovary
- Clear liquid diet
- PT/OT
- Continue Martinez catheter
#Postop anemia
Hgb 10.2 <12 on 09/05/2024
- Follow CBC
#Active smoker
Former 45-year 1 pack a day still smokes a cigarette at night
- Add nicotine gum 4 mg p.o. every 1 hours as needed
#Prior alcohol abuse stopped 1 month ago
Was drinking 2 glasses of wine nightly
-Continue thiamine vitamin
#Anxiety
Continue vitamin B
#Asthma
- Continue Singulair, albuterol as needed
#HLD
Continue Zocor 20 mg
#GERD
- Continue PPI, famotidine 20 mg daily
DVT prophylaxis
SCDs
Full code
--- NOTE | 2024-09-06 15:37 | W.PN.GYNONC ---
Today's Communication
-
OOB, ambulate
keep perla for another 24 hr
Impression / Plan
-
looks well
labs reviewed, wbc 19k, normal from surgery, Hgb stable
GI and DVT prophylaxis
advance diet as tolerated, per CRS
encourage OOB, ambulation
Subjective / Interval History
-
POD1
s/p robotic LAR, LSO, ureterolysis, cysto/stents, colostomy takdown
OR findings discussed and reviewed
had nausea overnight, but improved. She is passing flatus
Objective Data
-
Lab Results:
09/06/24 11:44
09/06/24 05:00
Physical Exam
Vital Signs / I&O
Vitals
Temp Pulse Resp BP Pulse Ox
99.0 F 80 16 97/48 94
09/06/24 07:55 09/06/24 07:55 09/06/24 07:55 09/06/24 07:55 09/06/24 07:55
I&O
09/04/24 09/05/24 09/06/24 09/07/24
06:59 06:59 06:59 06:59
Intake Total 400 / 400 120 / 120
Output Total 2475 / 2475 970 / 970
Balance -2074 / -2074 - / -850
Physical Exam
General: No Apparent Distress
Respiratory: Clear and Non Labored Respirations
Cardiac: S1/S2 and Regular Rhythm
GI: Soft and No Hepatosplenomegaly
[2024-09-06 15:50] VITALS: BP 101/54
[2024-09-06] MEDS: ZOSYN 50 IV (17:00)
[2024-09-06] MEDS: NSS 1000 IV (17:00)
[2024-09-06] MEDS: NORMOSOL-R/PLASMALYTE-A IV (17:29)
[2024-09-06 19:10] VITALS: BP 124/52
[2024-09-06] MEDS: LIPITOR 10 MG PO (19:53)
[2024-09-06] MEDS: MURO 5% OPHTHALMIC OINTMENT 1 APPLIC OPHTH (19:54)
[2024-09-06] MEDS: SINGULAIR 10 MG PO (19:55)
--- NOTE | 2024-09-06 23:16 | W.PN.UPDATE ---
Update Note
Progress Note Update
Patient seen and examined independently
Please see POLL CLERK note for full details
63-year-old woman status post LAR with en-bloc left salpingoophorectomy and left ureterolysis on 09/05/2024 who developed hypotension. She was on Norvasc 2.5 mg daily and Flomax. Rectosigmoid involving left ovary status post left
salpingo-oophorectomy and left ureterolysis. At the time of my interview, she was comfortable and alert.
Past Medical History
essential HTN
HLD
GERD
anxiety
asthma
active smoker
Adenocarcinoma rectosigmoid status post colostomy February, chemo started in March
adenocarcinoma rectosigmoid involving left ovary status post left salpingo-oophorectomy and left ureterolysis
Right hip dermatology procedure
Cyst removal from face 11/25/2018
Cataract extraction right eye April 2021
Adenocarcinoma rectosigmoid status post colostomy February
Robotic LAR with en-bloc left salpingoophorectomy and left ureterolysis on 09/05/2024 for rectosigmoid cancer adenocarcinoma involving left ovary
Physical Exam
General: Comfortable
HEENT: Normocephalic
Respiratory: Clear;
Cardiac: S1/S2 a
GI: Soft,
Skin: Warm and Dry;
Psych: Calm
Medical consultation recommendations:
1. Acute hypotension status post LAR with en-bloc left salpingoophorectomy and left ureterolysis on 09/05/2024 concern possibly volume depletion, BP meds versus SIRS/sepsis
Stop Norvasc 2.5 mg daily,
stop Flomax at bedtime-patient
IV NSS 100 cc/h
vitals every 4 hours
2. Acute leukocytosis versus infectious source
Check lactic acid, blood cultures x 2
Zosyn every 6 hours
please see POLL CLERK note for other recommendations and observations on
Robotic LAR with en-bloc left salpingoophorectomy and left ureterolysis on 09/05/2024 for rectosigmoid cancer adenocarcinoma involving left ovary
Postop anemia
Active smoker
Prior alcohol abuse stopped 1 month ago
Anxiety
Asthma
HLD
GERD
[2024-09-06 23:18] VITALS: BP 106/50
[2024-09-07] MEDS: ZOSYN 50 IV ×3 (00:26→12:39)
[2024-09-07] MEDS: TYLENOL 650 MG PO ×6 (00:26→21:38)
[2024-09-07] MEDS: GENOPTIC 0.3% EYE DROPS 1 DROP OPHTH ×6 (00:27→21:39)
[2024-09-07 03:15] VITALS: BP 95/50
[2024-09-07] MEDS: TORADOL 10 MG IV ×4 (03:25→21:38)
[2024-09-07] MEDS: NSS 1000 IV ×3 (03:25→21:39)
[2024-09-07 05:57] VITALS: BMI 22.9
[2024-09-07 06:45] LABS: Blood Urea Nitrogen 8 mg/dl (7-17); Calcium 8.4 mg/dl (8.4-10.2); Carbon Dioxide 27 mmol/L (22-30); Chloride 110 mmol/L (98-107); Estimated Creatinine Clearance 75 ml/min; Glucose 126 mg/dl (70-99); Magnesium 2.1 mg/dl (1.6-2.3); Potassium 4.0 mmol/L (3.5-5.1); Sodium 139 mmol/L (135-145); eGFR > 60.00
[2024-09-07 06:47] LABS: Hematocrit 29.1 % (37.0-47.0); Hemoglobin 9.7 g/dL (12.0-16.0); Mean Corp Hgb Conc. 33.3 g/dL (33.0-37.0); Mean Corpuscular Volume 92.1 fL (81.0-99.0); Nucleated Red Blood Cells % 0 %; Platelet Count 140 10^3/uL (130-400); Red Cell Dist. Width 13.7 % (11.5-14.5)
[2024-09-07 07:20] VITALS: BP 108/59
[2024-09-07] MEDS: VITAMIN B1 100 MG PO (07:49)
[2024-09-07] MEDS: PROTONIX 40 MG PO (07:49)
[2024-09-07] MEDS: FOLVITE 1 MG PO (07:49)
[2024-09-07] MEDS: RELISTOR 12 MG SC (08:10)
--- NOTE | 2024-09-07 08:41 | W.PN.HOSP.TC ---
Today's Communication/Plan
-
see bold
Assessment / Plan
Assessment / Plan
HPI: 63-year-old female status post LAR with en-bloc left salpingoophorectomy and left ureterolysis on 09/05/2024 who developed hypotension in the evening 90s over 50s despite IV fluid. She was on Norvasc 2.5 mg daily however did not receive this
a.m. she did receive Flomax yesterday evening. She has a Martinez catheter in place draining sanguinous drainage and a JACKIE drain to the abdomen. She reports some chills but the room is very cold. She does have a low-grade temp of 99F. She denies
headache, dizziness, lightheadedness, sore throat, chest pain, palpitations, cough, shortness of breath, nausea, vomiting, diarrhea, rash.
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 The ureteral
stent was placed by urology Dr. Crowe the ovary was removed by . Her manual BP was 96/50 at bedside.
#Acute hypotension status post LAR w/ Dr. Salguero, with en-bloc left salpingoophorectomy and left ureterolysis on 09/05/2024
#Hx essential HTN
- Suspect secondary to anesthesia, as amlodipine has been held
- Blood pressure much improved today, recommend monitoring off of amlodipine
- Monitor, give IV fluids as needed
#Acute leukocytosis could be reactive from surgery versus infectious source
- Likely reactive, monitor off of antibiotics
#Robotic LAR with en-bloc left salpingoophorectomy and left ureterolysis on 09/05/2024 for rectosigmoid cancer adenocarcinoma involving left ovary
-For Martinez removal 09/07
-Being followed by Dr. Crowe with recommendations ureteral stent removal 5 weeks, Martinez be removed plan for 09/07/2024
# Acute blood loss anemia
- Follow CBC
#Active smoker
- Former 45-year 1 pack a day still smokes a cigarette at night
- Added nicotine gum 4 mg p.o. every 1 hours as needed
#Prior alcohol abuse stopped 1 month ago
- Was drinking 2 glasses of wine nightly
-Continue thiamine vitamin
#Anxiety
- Continue vitamin B
#Asthma
- Continue Singulair, albuterol as needed
#HLD
Continue Zocor 20 mg
#GERD
- Continue PPI, famotidine 20 mg daily
DVT prophylaxis�subcu Lovenox
Full code
Total time spent to see the patient on the floor, examine the patient, review data and lab results, discuss treatment plan with patient, nursing staff around 36 minutes.
Physical Exam
General: No acute distress
HEENT: Normocephalic, Atraumatic, EOMI, MMM
Respiratory: Clear to Auscultation bilaterally
Cardiac: Normal S1/S2, Regular Rate and Rhythm
GI: Soft, appropriately tender, incisions dressed, JACKIE drain in place
Extremities: No Clubbing, Cyanosis, or Edema
Neuro: Nonfocal/Grossly Intact
Anticipated Discharge: 24 - 48 hours
Subjective/Interval History
-
Date of Service: September 07, 2024
Patient reports abdominal pain from her surgery. She denies lightheadedness. No nausea, no vomiting. No fever.
Objective Data
-
Labs:
Laboratory Results
09/07/24
05:13
WBC 9.1
Hgb 9.7 L
Hct 29.1 L
Plt Count 140
Sodium 139
Potassium 4.0
Chloride 110 H
Carbon Dioxide 27
BUN 8
Creatinine 0.7
Glucose 126 H
Calcium 8.4
Vital Signs:
Vital Signs
Temp Pulse Resp BP Pulse Ox
98.0 F 79 18 95/50 95
09/07/24 03:15 09/07/24 03:15 09/07/24 03:15 09/07/24 03:15 09/07/24 03:15
I&O
09/06/24 09/07/24 09/08/24
06:59 06:59 06:59
Intake Total 400 / 400 360 / 360
Output Total 2475 / 2475 2580 / 2580
Balance -2074 / -2074 -2219 / -2219
--- NOTE | 2024-09-07 09:58 | W.PN.GS2 ---
Addendum entered and electronically signed by Arnel Flowers MD 09/07/24 10:16:
Patient seen and examined with surgical HAT BLOCKER. Agree with documented progress note with additions noted here.
Overall patient doing well with her postoperative recovery but was concerned regarding liquid stools.
Incisional pain controlled. No worsening abdominal pains.
Tolerating clear liquids and requesting to advance diet
AF/low normal BP -> asymptomatic
ABD: Soft, nondistended, mild tenderness palpation, dressings clean JACKIE light serosanguineous fluid
A/P: POD #2
Dietary advancement
Continue current supportive care
Original Note:
Today's Communication / Plan
-
Advance diet
Assessment / Plan
-
63 yo female with a h/o rectal cancer involving left ovary with prior diverting colostomy creation in February now s/p neoadjuvant chemo who presents for scheduled surgery
POD #2 Colostomy takedown, LAR (Noemy), left salpingooophorectomy (Efraín) and robotic left ureteral lysis with JJ stent placement (still in place) and right ureteral catheter placement (removed) by Edisonfer
Afebrile, BP low normal, no tachycardia
No further leukocytosis
Acute anemia secondary to intraoperative losses (expected) and hemodilution with fluid boluses, stable
JACKIE outputs light serosanguineous and decreasing as expected
Passing loose stools/flatus, no hematochezia. No n/v and tolerating clears
Perla out, pt voiding
Plan:
Advance to FLD this am and LRD later today if tolerating
Analgesic scheduled and prn. Added PO tramadol today
Appreciate medicine service following given hypotension, antihypertensives on hold. Flomax d/c'd
C/W IVF
C/W JACKIE, will likely remove upon d/c
Follow labs
c/w PPI
Start lovenox sq for VTE ppx
Subjective Data
-
Date of Service: September 07, 2024
Pt seen and examined at bedside with Dr. Flowers. Denies n/v. Tolerating clears. Passing loose/liquid stool, nonbloody. Voiding without difficulty. OOB to chair.
Objective Data
-
Intake and Output
09/06/24 09/07/24 09/08/24
06:59 06:59 06:59
Intake Total 400 / 400 360 / 360
Output Total 2475 / 2475 2580 / 2580
Balance -2075 / -2075 -2220 / -2220
Intake:
Oral fluids 360 / 360
IV fluids (Total) 400 / 400
Normosal 400 / 400
Output:
Drain Output (Total) 300 / 300 180 / 180
Right Abdomen Garrett-Rodriguez 300 / 300 180 / 180
Urine, Perla 2175 / 2175 2400 / 2400
Vital Signs
Temp Pulse Resp BP Pulse Ox
98.2 F 68 17 108/59 96
09/07/24 07:20 09/07/24 07:20 09/07/24 07:20 09/07/24 07:20 09/07/24 07:20
Lab Results
09/07/24 05:13
09/07/24 05:13
Calcium 8.4 mg/dl (8.4-10.2) 09/07/24 05:13
Magnesium 2.1 mg/dl (1.6-2.3) 09/07/24 05:13
Total Bilirubin 0.9 mg/dl (0.2-1.3) 09/03/24 09:13
AST 31 U/L (14-36) 09/03/24 09:13
ALT 24 U/L (0-35) 09/03/24 09:13
Alkaline Phosphatase 92 U/L (38-126) 09/03/24 09:13
Total Protein 7.1 g/dl (6.3-8.2) 09/03/24 09:13
Albumin 4.7 g/dl (3.5-5.0) 09/03/24 09:13
Physical Exam
-
NAD
ABD soft, mild incisional tenderness, ND, JACKIE with SSF
Incisions with intact glue, prior ostomy site with clean dressing
Patient has a perla catheter: No
--- NOTE | 2024-09-07 10:55 | W.PN.URO.CBU ---
Today's Communication / Plan
-
CHECK BLADDER SCAN EXPECT PVR OVER 250
Assessment / Plan
-
63F with rectal cancer and L ureteral obstruction
s/p robotic L ureterolysis and L ureteral stent exchange during LAR by Dr. Salguero 09/05/24
- Soni can be removed per CRS - plan for 09/07
- Recommend post void residual bladder scan given patient's high capacity bladder on imaging. Some mild to moderate residual may be expected
- Plan for ureteral stent removal in about 5 weeks
Diagnosis
-
Date of Service: September 07, 2024
-
Patient Diagnosis:
Post Op Day:
Patient Diagnosis:
L ureteral obstruction
Post Op Day: s/p robotic L ureterolysis and L ureteral stent exchange during LAR by Dr. Salguero
Subjective
-
SONI OUT VOIDING ALYX DYURIA NOR HEMATURIA
Objective
-
Vital Signs
Temp Pulse Resp BP Pulse Ox
98.2 F 68 17 108/59 96
09/07/24 07:20 09/07/24 07:20 09/07/24 07:20 09/07/24 07:20 09/07/24 07:20
Intake and Output
09/06/24 09/07/24 09/08/24
06:59 06:59 06:59
Intake Total 400 / 400 360 / 360 1020 / 1020
Output Total 2475 / 2475 2580 / 2580
Balance -2074 / -2074 -2219 / -2219 1020 / 1020
Intake:
Oral fluids 360 / 360 1020 / 1020
IV fluids (Total) 400 / 400
Normosal 400 / 400
Output:
Drain Output (Total) 300 / 300 180 / 180
Right Abdomen Garrett-Rodriguez 300 / 300 180 / 180
Urine, Soni 2175 / 2175 2400 / 2400
Other:
Number of approximated MODERATE 2
amounts of urine
Number of unmeasured liquid
stools
Colostomy 2
Laboratory Results
09/07/24 05:13
09/07/24 05:13
Review of Systems
-
: Bleeding
Physical Exam
-
General - well developed, well nourished, no acute distress
Chest - clear bilaterally
Abdomen - soft, non-tender, positive bowel sounds, no CVAT, no incisional pain or distention
Genitalia - normal
Rectal - normal
Skin - warm & dry with no rash
Neuro - AOx3, no motor deficits
Extremities - no clubbing, no cyanosis, no edema
Incision - clean, dry
Dressing - clean, dry, intact
Counseling
-
CHECK BLADDER SCAN EXPECT SOME RETENTION
Care Review
Data Reviewed
Discussed with: Family
[2024-09-07 11:15] VITALS: BP 116/56
[2024-09-07] MEDS: ULTRAM 50 MG PO (14:01)
[2024-09-07 15:45] VITALS: BP 118/44
[2024-09-07] MEDS: LOVENOX 40 MG SC (17:27)
[2024-09-07 19:35] VITALS: BP 125/52
[2024-09-07] MEDS: MURO 5% OPHTHALMIC OINTMENT 1 APPLIC OPHTH (21:38)
[2024-09-07] MEDS: SINGULAIR 10 MG PO (21:38)
[2024-09-07] MEDS: LIPITOR 10 MG PO (21:38)
[2024-09-07 23:49] VITALS: BP 128/62
[2024-09-08] MEDS: GENOPTIC 0.3% EYE DROPS 1 DROP OPHTH ×6 (01:32→23:09)
[2024-09-08] MEDS: TYLENOL PO ×2 (01:35→11:47)
[2024-09-08 03:03] VITALS: BP 117/52
[2024-09-08] MEDS: TYLENOL 650 MG PO ×5 (04:14→23:08)
[2024-09-08] MEDS: TORADOL 10 MG IV ×2 (04:14→10:10)
[2024-09-08 04:47] LABS: Hematocrit 28.5 % (37.0-47.0); Hemoglobin 9.6 g/dL (12.0-16.0); Mean Corp Hgb Conc. 33.7 g/dL (33.0-37.0); Mean Corpuscular Volume 91.1 fL (81.0-99.0); Platelet Count 150 10^3/uL (130-400); Red Cell Dist. Width 13.2 % (11.5-14.5)
[2024-09-08 05:04] LABS: Blood Urea Nitrogen 7 mg/dl (7-17); Calcium 8.5 mg/dl (8.4-10.2); Carbon Dioxide 26 mmol/L (22-30); Chloride 111 mmol/L (98-107); Estimated Creatinine Clearance 75 ml/min; Glucose 114 mg/dl (70-99); Potassium 3.8 mmol/L (3.5-5.1); Sodium 140 mmol/L (135-145); eGFR > 60.00
[2024-09-08 06:51] VITALS: BMI 23.4
[2024-09-08 07:05] VITALS: BP 123/56
--- NOTE | 2024-09-08 08:44 | W.PN.HOSP.TC ---
Today's Communication/Plan
-
Blood pressure stable
No issues for medicine service to manage
Medicine service signing off
Assessment / Plan
Assessment / Plan
HPI: 63-year-old female status post LAR with en-bloc left salpingoophorectomy and left ureterolysis on 09/05/2024 who developed hypotension in the evening 90s over 50s despite IV fluid. She was on Norvasc 2.5 mg daily however did not receive this
a.m. she did receive Flomax yesterday evening. She has a Martinez catheter in place draining sanguinous drainage and a JACKIE drain to the abdomen. She reports some chills but the room is very cold. She does have a low-grade temp of 99F. She denies
headache, dizziness, lightheadedness, sore throat, chest pain, palpitations, cough, shortness of breath, nausea, vomiting, diarrhea, rash.
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 The ureteral
stent was placed by urology Dr. Crowe the ovary was removed by . Her manual BP was 96/50 at bedside.
#Acute hypotension status post LAR w/ Dr. Salguero, with en-bloc left salpingoophorectomy and left ureterolysis on 09/05/2024
#Hx essential HTN
- Suspect secondary to anesthesia, as amlodipine has been held
- Blood pressure much improved today, recommend monitoring off of amlodipine
- Resolved
#Acute leukocytosis could be reactive from surgery versus infectious source
- Likely reactive, monitor off of antibiotics
#Robotic LAR with en-bloc left salpingoophorectomy and left ureterolysis on 09/05/2024 for rectosigmoid cancer adenocarcinoma involving left ovary
-For Martinez removal 09/07
-Being followed by Dr. Crowe with recommendations ureteral stent removal 5 weeks, Martinez be removed plan for 09/07/2024
#Peripheral neuropathy
- Gabapentin added by surgery service
# Acute blood loss anemia
- Follow CBC
#Active smoker
- Former 45-year 1 pack a day still smokes a cigarette at night
- Added nicotine gum 4 mg p.o. every 1 hours as needed
#Prior alcohol abuse stopped 1 month ago
- Was drinking 2 glasses of wine nightly
-Continue thiamine vitamin
#Anxiety
- Continue vitamin B
#Asthma
- Continue Singulair, albuterol as needed
#HLD
Continue Zocor 20 mg
#GERD
- Continue PPI, famotidine 20 mg daily
DVT prophylaxis�subcu Lovenox
Full code
Total time spent to see the patient on the floor, examine the patient, review data and lab results, discuss treatment plan with patient, nursing staff around 38 minutes.
Thank you for the consult, medicine service to sign off.
Please call if any questions or concerns.
Physical Exam
General: No acute distress
HEENT: Normocephalic, Atraumatic, EOMI, MMM
Respiratory: Clear to Auscultation bilaterally
Cardiac: Normal S1/S2, Regular Rate and Rhythm
GI: Soft, appropriately tender, incisions dressed, JACKIE drain in place
Extremities: No Clubbing, Cyanosis, or Edema
Neuro: Nonfocal/Grossly Intact
Anticipated Discharge: 24 - 48 hours
Subjective/Interval History
-
Date of Service: September 08, 2024
Patient continues to have abdominal pain, reports IV Toradol helps a little. Denies chest pain, denies shortness of breath. She is having stools and gas. No fever, no vomiting.
Objective Data
-
Labs:
Laboratory Results
09/08/24
04:08
WBC 8.5
Hgb 9.6 L
Hct 28.5 L
Plt Count 150
Sodium 140
Potassium 3.8
Chloride 111 H
Carbon Dioxide 26
BUN 7
Creatinine 0.7
Glucose 114 H
Calcium 8.5
Vital Signs:
Vital Signs
Temp Pulse Resp BP Pulse Ox
98.8 F 72 16 123/56 96
09/08/24 07:05 09/08/24 07:05 09/08/24 07:05 09/08/24 07:05 09/08/24 07:05
I&O
09/07/24 09/08/24 09/09/24
06:59 06:59 06:59
Intake Total 360 / 360 2039 / 2039
Output Total 2580 / 258 120 / 120
Balance -2219 / -2219
--- NOTE | 2024-09-08 09:02 | W.PN.GS2 ---
Addendum entered and electronically signed by Arnel Flowers MD 09/08/24 09:17:
Patient seen and examined. at bedside.
Tolerating dietary advancement. Positive flatus and multiple loose stools; some difficulty controlling stool/urgency
Advised patient this bowel pattern is not unexpected given reversal of diversion and low anterior resection with distal rectal anastomosis
AFVSS
ABD: Soft, nondistended, mild tenderness to palpation
Old ostomy site with wound holly clean. JACKIE with serosanguineous fluid, dressing change.
Surgical sites with glue dressings.
A/P: Continue low residue diet, DC telemetry
Add gabapentin for peripheral neuropathy
Original Note:
Today's Communication / Plan
-
LRD
Assessment / Plan
-
63 yo female with a h/o rectal cancer involving left ovary with prior diverting colostomy creation in February now s/p neoadjuvant chemo who presents for scheduled surgery
POD #3 Colostomy takedown, LAR (Noemy), left salpingooophorectomy (Efraín) and robotic left ureteral lysis with JJ stent placement (still in place) and right ureteral catheter placement (removed) by Peffer
Afebrile, VSS
No further leukocytosis
H/H stable
JACKIE outputs light serosanguineous and decreasing as expected
Passing loose stools/flatus, no hematochezia
Tolerating LRD
Ok to d/c telemetry
Plan:
Continue LRD
Analgesic scheduled and prn. Added PO gabapentin today given c/o neuropathic pain
Follow off ABX
C/W scheduled and prn analgesics
D/C IVF
C/W JACKIE, will remove upon d/c
c/w PPI
OP urology follow up in approx 5 weeks for stent removal
Start lovenox sq for VTE ppx
Nearing readiness for d/c, ? tomorrow if continues to progress well
Subjective Data
-
Date of Service: September 08, 2024
Pt seen and examined at bedside with Dr. Flowers. Denies n/v. Tolerating LRD. Loose nonbloody stools without much control, slowed since yesteray. Passing flatus. C/O neuropathic pain to her legs.
Objective Data
-
Intake and Output
09/07/24 09/08/24 09/09/24
06:59 06:59 06:59
Intake Total 360 / 360 2039
Output Total 2580 / 2580 120 / 120
Balance -2220 / -2220 1919
Intake:
Oral fluids 360 / 360 2039
Output:
Drain Output (Total) 180 / 180 120 / 120
Right Abdomen Garrett-Rodriguez 180 / 180 120 / 120
Urine, Perla 2400 / 2400
Other:
Number of approximated MODERATE 2
amounts of urine
Number of unmeasured liquid
stools
Colostomy 2
Vital Signs
Temp Pulse Resp BP Pulse Ox
98.8 F 72 16 123/56 96
09/08/24 07:05 09/08/24 07:05 09/08/24 07:05 09/08/24 07:05 09/08/24 07:05
Lab Results
09/08/24 04:08
09/08/24 04:08
Calcium 8.5 mg/dl (8.4-10.2) 09/08/24 04:08
Magnesium 2.1 mg/dl (1.6-2.3) 09/07/24 05:13
Total Bilirubin 0.9 mg/dl (0.2-1.3) 09/03/24 09:13
AST 31 U/L (14-36) 09/03/24 09:13
ALT 24 U/L (0-35) 09/03/24 09:13
Alkaline Phosphatase 92 U/L (38-126) 09/03/24 09:13
Total Protein 7.1 g/dl (6.3-8.2) 09/03/24 09:13
Albumin 4.7 g/dl (3.5-5.0) 09/03/24 09:13
Physical Exam
-
NAD
ABD soft, mild incisional tenderness, ND, JACKIE with SSF (dressing changed)
Incisions with intact glue, prior ostomy site with intact dolly/Joe, dressing changed
Patient has a perla catheter: No
Patient has a central line: No
--- NOTE | 2024-09-08 09:23 | W.PN.URO.CBU ---
Today's Communication / Plan
-
urologically stable
Assessment / Plan
-
63F with rectal cancer and L ureteral obstruction
s/p robotic L ureterolysis and L ureteral stent exchange during LAR by Dr. Salguero 09/05/24
- Martinez can be removed per CRS - plan for 09/07
- Recommend post void residual bladder scan given patient's high capacity bladder on imaging. Some mild to moderate residual may be expected
- Plan for ureteral stent removal in about 5 weeks
Diagnosis
-
Date of Service: September 08, 2024
-
Patient Diagnosis:
Post Op Day:
Patient Diagnosis:
Post Op Day:
Patient Diagnosis:
L ureteral obstruction
Post Op Day: s/p robotic L ureterolysis and L ureteral stent exchange during LAR by Dr. Salguero
Subjective
-
voiding well mild intermittent hematuria
Objective
-
Vital Signs
Temp Pulse Resp BP Pulse Ox
98.8 F 72 16 123/56 96
09/08/24 07:05 09/08/24 07:05 09/08/24 07:05 09/08/24 07:05 09/08/24 07:05
Intake and Output
09/07/24 09/08/24 09/09/24
06:59 06:59 06:59
Intake Total 360 / 360 2039
Output Total 2580 / 2580 120 / 120
Balance -2220 / -2220 1919
Intake:
Oral fluids 360 / 360 2039
Output:
Drain Output (Total) 180 / 180 120 / 120
Right Abdomen Garrett-Rodriguez 180 / 180 120 / 120
Urine, Martinez 2400 / 2400
Other:
Number of approximated MODERATE 2
amounts of urine
Number of unmeasured liquid
stools
Colostomy 2
Laboratory Results
09/08/24 04:08
09/08/24 04:08
Review of Systems
-
: Dark Urine
Physical Exam
-
General - well developed, well nourished, no acute distress
Chest - clear bilaterally
Abdomen - soft, non-tender, positive bowel sounds, no CVAT, no incisional pain or distention
Genitalia - normal
Rectal - normal
Skin - warm & dry with no rash
Neuro - AOx3, no motor deficits
Extremities - no clubbing, no cyanosis, no edema
Incision - clean, dry
Dressing - clean, dry, intact
Counseling
-
per general surgery
Care Review
Data Reviewed
Discussed with: Family and Other (general surgery)
[2024-09-08] MEDS: PROTONIX 40 MG PO (10:08)
[2024-09-08] MEDS: VITAMIN B1 100 MG PO (10:08)
[2024-09-08] MEDS: FOLVITE 1 MG PO (10:09)
[2024-09-08] MEDS: RELISTOR SC (10:16)
[2024-09-08] MEDS: NSS IV (11:44)
[2024-09-08] MEDS: NEURONTIN 100 MG PO ×3 (11:44→21:30)
[2024-09-08 15:15] VITALS: BP 119/51
[2024-09-08] MEDS: TORADOL 15 MG IV ×2 (15:22→18:23)
[2024-09-08] MEDS: GENOPTIC 0.3% EYE DROPS OPHTH (17:07)
[2024-09-08] MEDS: LOVENOX 40 MG SC (17:26)
[2024-09-08] MEDS: LIPITOR 10 MG PO (19:55)
[2024-09-08] MEDS: MURO 5% OPHTHALMIC OINTMENT 1 APPLIC OPHTH (19:55)
[2024-09-08] MEDS: SINGULAIR 10 MG PO (20:08)
[2024-09-08] MEDS: MELATONIN 5 MG PO (21:30)
[2024-09-08 23:00] VITALS: BP 113/50
[2024-09-09] MEDS: TORADOL 15 MG IV ×3 (00:03→12:21)
[2024-09-09] MEDS: GENOPTIC 0.3% EYE DROPS 1 DROP OPHTH ×3 (03:30→12:21)
[2024-09-09] MEDS: TYLENOL 650 MG PO ×3 (03:30→12:21)
[2024-09-09 06:00] VITALS: BMI 23.3
[2024-09-09 07:15] VITALS: BP 125/68
[2024-09-09] MEDS: FOLVITE 1 MG PO (08:19)
[2024-09-09] MEDS: PROTONIX 40 MG PO (08:19)
[2024-09-09] MEDS: VITAMIN B1 100 MG PO (08:19)
[2024-09-09] MEDS: NEURONTIN 100 MG PO (08:19)
--- NOTE | 2024-09-09 10:08 | W.PN.CRS1 ---
Today's Communication / Plan
-
Discharge
Assessment/Plan
-
63 yo female with a h/o rectal cancer involving left ovary with prior diverting colostomy creation in February now s/p neoadjuvant chemo who presents for scheduled surgery
POD #4 Colostomy takedown, LAR (Noemy), left salpingooophorectomy (Efraín) and robotic left ureteral lysis with JJ stent placement (still in place) and right ureteral catheter placement (removed) by Peffer
Afebrile, VSS
No labs today
JACKIE outputs light serosanguineous - 200ml
Plan:
-Continue LRD
-Analgesic scheduled and prn. Added PO gabapentin yesterday given c/o neuropathic pain
-Follow off ABX
-C/W scheduled and prn analgesics
-JACKIE drain removed
-c/w PPI
-OP urology follow up in approx 5 weeks for stent removal
-On lovenox sq for VTE ppx
- Okay for discharge later today. She will go home with a visiting nurse and a rolling walker. All discharge instructions discussed with patient including medications, activity levels, and follow-up. All questions answered.
Subjective Data
Procedure
robotic LAR with en-bloc left salpingoophorectomy and left ureterolysis on 09/06/24
Subjective Data
Date of Service: September 09, 2024
Patient states she is sore but otherwise doing well. She is having flatus and bowel movements. She has an appetite. She is looking forward to going home.
Objective Data
-
Vital Signs
Temp Pulse Resp BP Pulse Ox
97.8 F 64 20 125/68 99
09/09/24 07:15 09/09/24 07:15 09/09/24 07:15 09/09/24 07:15 09/09/24 07:15
Intake & Output
09/08/24 09/09/24 09/10/24
06:59 06:59 06:59
Intake Total 2039 3160 / 3160
Output Total 120 / 120 200 / 200
Balance 1919 2960 / 2960
Intake:
Oral fluids 2039 2760 / 2760
IV fluids (Total) 400 / 400
Output:
Drain Output (Total) 120 / 120 200 / 200
Right Abdomen Garrett-Rodriguez 120 / 120 200 / 200
Other:
Number of approximated MODERATE 2 5
amounts of urine
Number of unmeasured liquid
stools
Colostomy 2
Lab Results
09/08/24 04:08
09/08/24 04:08
Physical Exam
-
General: No Acute Distress and AOx3
Abdomen: Soft, Non Distended, Non Tender and Other (JACKIE drain serosanginous)
Skin: Warm and Dry
Incision: Clear, Dry, Intact (holly removed)
--- NOTE | 2024-09-09 11:20 | CM ---
Patient seen at bedside with patient also present on 2 . Patient states that she wants to go home with [facility] and per liaison patient referral accepted. Patient stated that she would like to see therapy and to purchase walker.
Patient eager for discharge home today. CM reviewed IMM and will place complete signed form on chart. CM will continue to follow for discharge planning needs.
Plan; home with [facility] and walker
[2024-09-09 11:27] VITALS: BP 137/58; PULSE 65; O2SAT 98
--- NOTE | 2024-09-09 11:49 | VNURNOTE ---
Body Bumper met with patient to discuss [facility] nurse/therapy, visits, schedule and homebound status. Patient is agreeable and understands that visits at home will be 2-3 x per week to assess and teach medical management.
Patient is aware that [facility] will contact them for start of care in 1-2 days after discharge from .
[facility] referral completed in [facility].
[2024-09-09 13:00] VITALS: BP 121/68
[2024-09-09 14:00] VITALS: BP 128/68
--- NOTE | 2024-09-09 14:27 | W.PN.GYNONC ---
Today's Communication
-
dc home ok as per my service
Impression / Plan
-
looks well
labs reviewed, wbc is normal, Hgb 9-10 range
GI and DVT prophylaxis
winsome regular diet ok
encourage OOB, ambulation
ok to dc home from my perspective
plan for follow up in office in 4 weeks
Subjective / Interval History
-
POD 4
sitting in hair,c feels well, present, she ambulated
she is pasing flatus
Objective Data
-
Lab Results:
09/08/24 04:08
09/08/24 04:08
Physical Exam
Vital Signs / I&O
Vitals
Temp Pulse Resp BP Pulse Ox
97.8 F 64 20 125/68 99
09/09/24 07:15 09/09/24 07:15 09/09/24 07:15 09/09/24 07:15 09/09/24 07:15
I&O
09/07/24 09/08/24 09/09/24 09/10/24
06:59 06:59 06:59 06:59
Intake Total 360 / 360 2040 / 2040 3160 / 3160
Output Total 2580 / 2580 120 / 120 200 / 200
Balance -2220 / -2220 1920 / 1920 2960 / 2960
Physical Exam
General: No Apparent Distress
Respiratory: Clear, Wheezes and Non Labored Respirations
Cardiac: S1/S2 and Regular Rhythm
GI: Soft, Non Tender and Non Distended
--- NOTE | 2024-09-09 14:47 | W.PN.URO.CBU ---
Today's Communication / Plan
-
stable urologivcally home when ok gneal surgery will come to ofce for stent removal
Assessment / Plan
-
63F with rectal cancer and L ureteral obstruction
s/p robotic L ureterolysis and L ureteral stent exchange during LAR by Dr. Salguero 09/05/24
- Martinez can be removed per CRS - plan for 09/07
- Recommend post void residual bladder scan given patient's high capacity bladder on imaging. Some mild to moderate residual may be expected
- Plan for ureteral stent removal in about 5 weeks
Diagnosis
-
Date of Service: September 09, 2024
-
Patient Diagnosis:
Post Op Day:
Patient Diagnosis:
Post Op Day:
Patient Diagnosis:
Post Op Day:
Patient Diagnosis:
L ureteral obstruction
Post Op Day: s/p robotic L ureterolysis and L ureteral stent exchange during LAR by Dr. Salguero
Subjective
-
asx from [facility]
Objective
-
Vital Signs
Temp Pulse Resp BP Pulse Ox
97.8 F 64 20 125/68 99
09/09/24 07:15 09/09/24 07:15 09/09/24 07:15 09/09/24 07:15 09/09/24 07:15
Intake and Output
09/08/24 09/09/24 09/10/24
06:59 06:59 06:59
Intake Total 2039 3160 / 3160
Output Total 120 / 120 200 / 200
Balance 1919 2960 / 2960
Intake:
Oral fluids 2039 2760 / 2760
IV fluids (Total) 400 / 400
Output:
Drain Output (Total) 120 / 120 200 / 200
Right Abdomen Garrett-Rodriguez 120 / 120 200 / 200
Other:
Number of approximated MODERATE 2 5
amounts of urine
Number of unmeasured liquid
stools
Colostomy 2
Laboratory Results
09/08/24 04:08
09/08/24 04:08
Review of Systems
-
: Bleeding
Physical Exam
-
General - well developed, well nourished, no acute distress
Chest - clear bilaterally
Abdomen - soft, non-tender, positive bowel sounds, no CVAT, no incisional pain or distention
Genitalia - normal
Rectal - normal
Skin - warm & dry with no rash
Neuro - AOx3, no motor deficits
Extremities - no clubbing, no cyanosis, no edema
Incision - clean, dry
Dressing - clean, dry, intact
Care Review
Data Reviewed
Discussed with: Family
== END 2024-09-09 14:40 | disposition home health service (06) | DRG 333 ==
LOC: 2 SOUTH 06:12
PROVIDERS: Clinical Nurse Specialist Family Health; Obstetrics & Gynecology Gynecologic Oncology; Physician Assistant; Registered Nurse; ADMITTING PHYSICIAN Urology; ATTENDING PHYSICIAN Surgery; FAMILY PHYSICIAN Internal Medicine; OTHER PHYSICIAN Internal Medicine
PROC: 0DJD8ZZ Inspection of Lower Intestinal Tract, Via Natural or Artificial Opening Endoscopic (ICD-10-PCS; 2024-09-05)
PROC: 0DBP0ZZ Excision of Rectum, Open Approach (ICD-10-PCS; 2024-09-05)
PROC: 0TB70ZX Excision of Left Ureter, Open Approach, Diagnostic (ICD-10-PCS; 2024-09-05)
PROC: 0T788DZ Dilation of Bilateral Ureters with Intraluminal Device, Via Natural or Artificial Opening Endoscopic (ICD-10-PCS; 2024-09-05)
PROC: 8E0W0CZ Robotic Assisted Procedure of Trunk Region, Open Approach (ICD-10-PCS; 2024-09-05)
PROC: 0TN70ZZ Release Left Ureter, Open Approach (ICD-10-PCS; 2024-09-05)
PROC: 0TP98DZ Removal of Intraluminal Device from Ureter, Via Natural or Artificial Opening Endoscopic (ICD-10-PCS; 2024-09-05)
PROC: 0UT10ZZ Resection of Left Ovary, Open Approach (ICD-10-PCS; 2024-09-05)
PROC: 0UT60ZZ Resection of Left Fallopian Tube, Open Approach (ICD-10-PCS; 2024-09-05)
PROC: 3E0K8KZ Introduction of Other Diagnostic Substance into Genitourinary Tract, Via Natural or Artificial Opening Endoscopic (ICD-10-PCS; 2024-09-05)
PROC: 0DBW0ZZ Excision of Peritoneum, Open Approach (ICD-10-PCS; 2024-09-05)
DX: C20 Malignant neoplasm of rectum (principal); C79.62 Secondary malignant neoplasm of left ovary; D62 Acute posthemorrhagic anemia; R65.10 Systemic inflammatory response syndrome (SIRS) of non-infectious origin without acute organ dysfunction; N13.5 Crossing vessel and stricture of ureter without hydronephrosis; I95.81 Postprocedural hypotension; I10 Essential (primary) hypertension; E78.5 Hyperlipidemia, unspecified; K21.9 Gastro-esophageal reflux disease without esophagitis; F41.9 Anxiety disorder, unspecified; G62.9 Polyneuropathy, unspecified; F10.11 Alcohol abuse, in remission; J45.909 Unspecified asthma, uncomplicated; D72.829 Elevated white blood cell count, unspecified; F17.200 Nicotine dependence, unspecified, uncomplicated; Z92.21 Personal history of antineoplastic chemotherapy; Z88.1 Allergy status to other antibiotic agents; Z88.8 Allergy status to other drugs, medicaments and biological substances; Z98.41 Cataract extraction status, right eye; Z43.3 Encounter for attention to colostomy
CPT/HCPCS: 36415; 80048; 80053; 82378; 82962; 83036; 83605; 83735; 85014; 85018; 85025; 85027; 85610; 85730; 86850; 86900; 86901; 87040; 88304; 88305; 88309; 88331; 97163; 97167; 97530; C2617; J1335

== ENCOUNTER 2024-09-12 11:29 | Emergency (ER) | payer MEDICARE, BC, SELFPAY ==
[2024-09-12 11:29] VITALS: BMI 23.3
[2024-09-12 11:32] VITALS: BP 127/64
--- NOTE | 2024-09-12 12:47 | ED.GENMED ---
History of Present Illness
General
Chief Complaint: Post Operative Problem(s)
Time Seen by Provider: 09/12/24 12:24
History of Present Illness
History of Present Illness:
63-year-old female history of rectal cancer status post resection/colostomy that was reversed on 09/05 presenting with right leg swelling starting 4 days ago. Patient denies chest pain or shortness of breath. Patient states that she is on Eliquis
2.5 mg twice daily which she has been taking as prescribed and has not missed any doses. Patient states that occupational therapy noted right upper extremity swelling yesterday but states she did not see it nor her . Of note patient has
been wearing compression socks. Patient states that the compression sock got caught on her left second toenail causing the nail to fall off. Patient states that she has been elevating her left foot for the past few days since but not her right
leg. Patient denies any arm or leg pain.
Phy Exam
Physical Exam
Physical Exam:
General: Alert, no acute distress
Head: NCAT
Eyes: clear conjunctiva
Neck: supple
Cardiac: regular rate and rhythm, no murmur
Lungs: clear to auscultation bilaterally. No wheezes, rales, or rhonchi. Speaking full unlabored sentences. No respiratory distress.
Abdomen: soft, nondistended nontender. Well-healing surgical incisions with no overlying erythema or discharge. [place] in place to larger incision on left lower abdomen. Surrounding ecchymosis
MSK: Mild edema to right ankle. No calf tenderness bilaterally. No swelling in left lower extremity. Second left toenail removed with no overlying erythema or discharge. No erythema to bilateral lower extremities. No swelling or erythema to
bilateral upper extremities. Palpable and equal radial and DP pulses bilaterally.
Skin: warm, dry
Neuro: Alert and oriented x3. no focal deficits
Course
Orders/Labs/Results
Orders:
Orders
09/12/24 11:40
US Periph Venous LOWER Ext RT Urgent
Comment:
Reason For Exam: r/o DVT
Vital Signs
Initial and Last Documented VS:
Initial Vital Signs
Temp Pulse Resp BP Pulse Ox
98.5 F 69 20 127/64 100
09/12/24 11:32 09/12/24 11:32 09/12/24 11:32 09/12/24 11:32 09/12/24 11:32
Last Documented Vital Signs
Temp Pulse Resp BP Pulse Ox
98.5 F 69 20 127/64 100
09/12/24 11:32 09/12/24 11:32 09/12/24 11:32 09/12/24 11:32 09/12/24 12:51
MDM/Problems Addressed
Differential Diagnosis Includes:
DVT, venous stasis
MDM/Problems Addressed:
Results review, right lower extremity peripheral vascular ultrasound shows no DVT. Low suspicion for DVT right upper extremity given no erythema/edema, no pain. Offered ultrasound right upper extremity to make sure there is no DVT but patient
declines. Discussed results with patient at bedside. Suspect swelling from IV fluid received after recent surgery. Advised to continue using compression socks, elevate legs. Stable for discharge with PCP follow-up
*Pulse Oximetry
SaO2: 100
Oxygen Mode of Delivery: Room air
Patient hypoxic: no
*Critical Care Note
Total Time (30-74mins, 75-104mins- exclusive of procedures): Not Applicable
ED Attending Note
-
Portions of this chart may have been created with voice recognition software.� Occasional wrong word or��sound alike� substitutions may have occurred due to the inherent limitations of voice recognition software.
Discharge Plan
Departure
Patient Disposition: Home (Routine Discharge)
Date of Disposition: 09/12/24
Time of Disposition: 13:12
Patient with high blood pressure during this ER visit?: No
Discharge Problem:
Right leg swelling
Instructions: Swelling
Prescriptions:
No Action
montelukast [Singulair] 10 mg Tablet
10 mg PO .@ 1999
amlodipine [Norvasc] 2.5 mg Tablet
2.5 mg PO DAILY
simvastatin [Zocor] 20 mg Tablet
20 mg PO .@ 1999
albuterol sulfate 90 mcg/actuation Hfa Aerosol Inhaler
2 puff INHALATION R QIDPRN PRN (Reason: sob)
folic acid 1 mg Tablet
1 mg PO DAILY 30 Days Qty: 30 0RF
sodium chloride [Barry 128] 5 % Ointment
1 applic OPHTHALMIC (EYE) .HS @1999
chlorhexidine gluconate 0.12 % Mouthwash
15 ml MUCOUS MEMBRANE .@ 1999
diphenhydramine-acetaminophen [Tylenol PM Extra Strength] 25-500 mg Tablet
1 tab PO .HS @ 1999 PRN (Reason: sleep)
Estroven Sleep Cool 2-56-40-112 mg Tablet
1 tab PO .HS @ 1999
famotidine 20 mg tablet
20 mg PO DAILY@1600
B Complex
1 dose PO DAILY
nicotine (polacrilex) 2 mg gum
4 mg PO Q1HPRN PRN (Reason: tobacco cessation)
Patient Comments:
patient takes 1-2 per hour
thiamine HCl (vitamin B1) 100 mg tablet
100 mg PO DAILY
pantoprazole 40 mg Tablet,Delayed Release (Dr/Ec)
40 mg PO DAILY
Eliquis 2.5 mg tablet
2.5 mg PO BID 30 Days Qty: 60 0RF
tramadol 50 mg tablet
50 mg PO Q6H Qty: 20 0RF
gabapentin 100 mg Capsule
100 mg PO TID 30 Days Qty: 90 0RF
Referrals:
Sheila Pack MD [Family Provider, Internal Medicine]
Activity Restrictions/Additional Instructions:
Continue using compression socks and elevating both legs.
Follow-up with primary care doctor in 1 to 2 days
Return to the emergency department for chest pain, shortness of breath or new/worsening symptoms
Interventions
Interventions:
*Risk Screen - Suicide Last Done: 09/12/24 11:32
*General Assessment Last Done: 09/12/24 11:32
*Neglect/Abuse Screening Last Done: 09/12/24 11:32
*ED- Fall Risk Assessment Last Done: 09/12/24 11:52
*Nursing Disposition Last Done: 09/12/24 13:41
ED-Skin Assessment Last Done: 09/12/24 11:52
Discharge Date and Time
Discharge Date/Time: 09/12/24 13:41
Print Language: BURKINAN
== END 2024-09-12 13:41 | disposition home or self-care (01) ==
LOC: EMR 11:29
PROVIDERS: EMERGENCY PHYSICIAN Emergency Medicine; FAMILY PHYSICIAN Internal Medicine; OTHER PHYSICIAN Surgery
DX: R22.41 Localized swelling, mass and lump, right lower limb (principal); Z79.01 Long term (current) use of anticoagulants; Z85.048 Personal history of other malignant neoplasm of rectum, rectosigmoid junction, and anus; Z93.3 Colostomy status
CPT/HCPCS: 99284; 93971

== ENCOUNTER → 2024-11-04 07:14 | Outpatient (REF) | payer MEDICARE, BC, SELFPAY ==
[2024-11-04 09:36] LABS: Hematocrit 37.1 % (37.0-47.0); Hemoglobin 12.9 g/dL (12.0-16.0); Mean Corp Hgb Conc. 34.8 g/dL (33.0-37.0); Mean Corpuscular Volume 83.9 fL (81.0-99.0); Nucleated Red Blood Cells % 0 %; Platelet Count 277 10^3/uL (130-400); Red Cell Dist. Width 12.4 % (11.5-14.5)
[2024-11-04 09:37] LABS: Urine Character Clear (Clear)
[2024-11-04 09:44] LABS: Urine Red Blood Cell 0-2 /HPF (0-2); Urine White Cell 0-2 /HPF (0-5)
[2024-11-04 10:11] LABS: ALT (SGPT) 28 U/L (0-35); AST (SGOT) 31 U/L (14-36); Albumin 4.9 g/dl (3.5-5.0); Alkaline Phosphatase 74 U/L (38-126); Blood Urea Nitrogen 16 mg/dl (7-17); Calcium 10.0 mg/dl (8.4-10.2); Carbon Dioxide 23 mmol/L (22-30); Chloride 102 mmol/L (98-107); Glucose 115 mg/dl (70-99); Potassium 4.5 mmol/L (3.5-5.1); Sodium 133 mmol/L (135-145); Total Protein 7.4 g/dl (6.3-8.2); eGFR > 60.00
[2024-11-04 11:47] LABS: Glycohemoglobin (HgbA1c) 5.9 % (4.0-5.6)
== END ==
LOC: HWLAB 07:14
PROVIDERS: ATTENDING PHYSICIAN Internal Medicine Hematology & Oncology; FAMILY PHYSICIAN Internal Medicine; OTHER PHYSICIAN Urology; REFERRING PHYSICIAN Surgery
DX: E11.9 Type 2 diabetes mellitus without complications (principal); C20 Malignant neoplasm of rectum; C79.60 Secondary malignant neoplasm of unspecified ovary; M54.50 Low back pain, unspecified
CPT/HCPCS: 36415; 80053; 81003; 81015; 83036; 85025; 87086

== ENCOUNTER → 2024-11-18 07:09 | Outpatient (REF) | payer MEDICARE, BC, SELFPAY ==
[2024-11-18 09:54] LABS: Hematocrit 39.2 % (37.0-47.0); Hemoglobin 13.3 g/dL (12.0-16.0); Mean Corp Hgb Conc. 33.9 g/dL (33.0-37.0); Mean Corpuscular Volume 86.7 fL (81.0-99.0); Nucleated Red Blood Cells % 0.9 %; Platelet Count 255 10^3/uL (130-400); Red Cell Dist. Width 13.0 % (11.5-14.5)
[2024-11-18 10:16] LABS: ALT (SGPT) 28 U/L (0-35); AST (SGOT) 32 U/L (14-36); Albumin 4.7 g/dl (3.5-5.0); Alkaline Phosphatase 73 U/L (38-126); Blood Urea Nitrogen 14 mg/dl (7-17); Calcium 9.6 mg/dl (8.4-10.2); Carbon Dioxide 27 mmol/L (22-30); Chloride 104 mmol/L (98-107); Glucose 130 mg/dl (70-99); Potassium 4.3 mmol/L (3.5-5.1); Sodium 139 mmol/L (135-145); Total Protein 7.2 g/dl (6.3-8.2); eGFR > 60.00
== END ==
LOC: HWRAD 07:09
PROVIDERS: ATTENDING PHYSICIAN Urology; FAMILY PHYSICIAN Internal Medicine; OTHER PHYSICIAN Internal Medicine Hematology & Oncology; REFERRING PHYSICIAN Surgery
DX: N13.30 Unspecified hydronephrosis (principal); C20 Malignant neoplasm of rectum; C79.60 Secondary malignant neoplasm of unspecified ovary; M54.50 Low back pain, unspecified
CPT/HCPCS: 36415; 76775; 80053; 85025

== ENCOUNTER → 2024-11-20 16:31 | Outpatient (REF) | payer MEDICARE, BC, SELFPAY ==
[2024-11-20 10:29] LABS: CEA 7.41 ng/ml
== END ==
LOC: OIDL 16:31
PROVIDERS: ATTENDING PHYSICIAN Internal Medicine Hematology & Oncology
DX: C20 Malignant neoplasm of rectum (principal); C79.60 Secondary malignant neoplasm of unspecified ovary; M54.50 Low back pain, unspecified
CPT/HCPCS: 82378

== ENCOUNTER → 2024-12-02 07:25 | Outpatient (REF) | payer MEDICARE, BC, SELFPAY ==
[2024-12-02 09:41] LABS: Hematocrit 39.7 % (37.0-47.0); Hemoglobin 13.5 g/dL (12.0-16.0); Mean Corp Hgb Conc. 34.0 g/dL (33.0-37.0); Mean Corpuscular Volume 87.6 fL (81.0-99.0); Nucleated Red Blood Cells % 0 %; Platelet Count 282 10^3/uL (130-400); Red Cell Dist. Width 13.8 % (11.5-14.5)
[2024-12-02 10:05] LABS: ALT (SGPT) 30 U/L (0-35); AST (SGOT) 29 U/L (14-36); Albumin 4.6 g/dl (3.5-5.0); Alkaline Phosphatase 77 U/L (38-126); Blood Urea Nitrogen 13 mg/dl (7-17); Calcium 9.6 mg/dl (8.4-10.2); Carbon Dioxide 28 mmol/L (22-30); Chloride 106 mmol/L (98-107); Glucose 130 mg/dl (70-99); Potassium 4.0 mmol/L (3.5-5.1); Sodium 137 mmol/L (135-145); Total Protein 7.3 g/dl (6.3-8.2); eGFR > 60.00
== END ==
LOC: HWLAB 07:25
PROVIDERS: ATTENDING PHYSICIAN Internal Medicine Hematology & Oncology; FAMILY PHYSICIAN Internal Medicine
DX: C20 Malignant neoplasm of rectum (principal); C79.60 Secondary malignant neoplasm of unspecified ovary; M54.50 Low back pain, unspecified
CPT/HCPCS: 36415; 80053; 85025

== ENCOUNTER 2024-12-10 19:16 | Inpatient (IN) | payer MEDICARE, BC, SELFPAY ==
[2024-12-10 15:21] VITALS: BP 132/86
[2024-12-10 15:56] LABS: Hematocrit 34.6 % (37.0-47.0); Hemoglobin 12.3 g/dL (12.0-16.0); Mean Corp Hgb Conc. 35.5 g/dL (33.0-37.0); Mean Corpuscular Volume 84.8 fL (81.0-99.0); Nucleated Red Blood Cells % 0 %; Platelet Count 153 10^3/uL (130-400); Red Cell Dist. Width 14.0 % (11.5-14.5)
[2024-12-10 16:10] LABS: ALT (SGPT) 511 U/L (0-35); AST (SGOT) 218 U/L (14-36); Albumin 3.9 g/dl (3.5-5.0); Alkaline Phosphatase 121 U/L (38-126); Blood Urea Nitrogen 10 mg/dl (7-17); Calcium 9.0 mg/dl (8.4-10.2); Carbon Dioxide 22 mmol/L (22-30); Chloride 102 mmol/L (98-107); Glucose 130 mg/dl (70-99); Potassium 3.9 mmol/L (3.5-5.1); Sodium 129 mmol/L (135-145); Total Protein 6.6 g/dl (6.3-8.2); eGFR > 60.00
--- NOTE | 2024-12-10 17:19 | ED.GENMED ---
History of Present Illness
<Nani Douglas, LGSW - Last Filed: 12/10/24 20:30>
General
Chief Complaint: Fever
Source: patient
Exam Limitations: none
Time Seen by Provider: 12/10/24 17:18
Nursing documentation reviewed up to this point in time: agreed with
History of Present Illness
History of Present Illness:
64-year-old female with history of HTN, rectal cancer currently under chemo treatment, Had colon resection 09/05/24 with colostomy then reversal, started chemotherapy Mar 2024, then had surgery, then started chemotherapy again 6 weeks ago, every 2
weeks. Her last chemo is scheduled for 12/18/24.
She is here for fever 101.6 2 days ago, has been taking Tylenol 1000 mg every 4-6 hours past 2 days. Told to stop Tylenol and fever today was 100.9.
Due to fever, she had out patient lab work done including BC x 2, here and was called and told to come in for abnormal liver function.
She did take Tylenol prior to coming here.
She denies chills, cough, SOB, CP, abd pain, UTI symptoms. she has been moving her bowels well. Denies headache, sore throat. Denies n/v/d/c.
Past History
<Nani Douglas, LGSW - Last Filed: 12/10/24 20:30>
Past History
ED Past Medical History: Cancer (colo-rectal CA), COPD, HTN and Psychiatric (anxiety)
ED Past Surgical History: Bowel resection
Social History
Tobacco: Former smoker
Personal:
Living: with family
Review of Systems
<Nani Douglas, LGSW - Last Filed: 12/10/24 20:30>
Review of Systems
Allergies reviewed?: Yes
All Other Systems: ROS reviewed and negative except as documented in HPI and ROS
Phy Exam
<Nani Douglas, LGSW - Last Filed: 12/10/24 20:30>
Physical Exam
Physical Exam:
GENERAL: No acute distress. A&Ox3.
CONSTITUTIONAL: Afebrile.
EYES: clear, conjunctivae normal
ENMT: moist mucus membranes, Pharynx nl
RESPIRATORY: Regular respirations, nonlabored, lungs clear.
CARDIOVASCULAR: Regular rate and rhythm, no murmurs, no rubs.
GI: Soft, nontender, normal BS
MUSCULOSKELETAL: Moves with ease. Well perfused.
SKIN: Warm, dry, pink
PSYCH: Normal mood and affect. Well kept, interactive and appropriate
NEUROLOGIC: Awake, alert and oriented. No focal neurological deficits
Course
<Nani Douglas, LGSW - Last Filed: 12/10/24 20:30>
Orders/Labs/Results
Orders:
Orders
12/10/24 15:23
Electrocardiogram (*1) Urgent
Reason for Study: Other
Other Reason for Exam: Possible Sepsis
IV Insert/Care/Rem.- Treatment PRN
12/10/24 15:24
EKG- Treatment ONCE
12/10/24 15:32
Complete Blood Count/With Diff Urgent
Comprehensive Metabolic Panel Urgent
Lactic Acid Q4H
Comment: ON ICE, CANCEL 2ND ORDER IF FIRST LACTIC ACID LEVEL <2
Serum Osmolality Urgent
12/10/24 15:33
Blood Culture Q20M
PRINCESS Source: Blood/Venous
Specimen Description:
Comment: Urgent from separate sites. If patient screens positive for possible sepsis
12/10/24 17:38
Cefepime HCl [Maxipime] 1,000 mg IV NOW STA
12/10/24 17:39
Add On- LAB Urgent
Tests Added?: serum osmolality
0.9% Sodium Chloride 1000 ml [Nss] 1,000 ml IV BOLUS
12/10/24 17:40
Add On- LAB Urgent
Tests Added?: urine osmolality, urine sodium
12/10/24 18:33
Admit/Transfer Patient As Directed
Co-Sign Provider:
Level of Care: Inpatient admission
Assign to:: Medical/Surgical
Physician / Group: hernan
Diagnosis: fever
Reason for Hospitalization: fever
Expected length of stay greater than two midnights?: Yes
ELOS- Estimated Length of Stay in days: 3
I certify the patient meets the requirements for IP care: Yes
12/10/24 18:34
PRN Pain Medication Management As Directed
May give lesser potent ordered pain med per pt: Yes
preference::
Protocol:: Medication orders for pain may be administered in a
manner that supports deferring to patient preference
when the pt is:
- Requesting an ordered lesser potent pain medication.
Least to most potent pain medications are defined
as: acetaminophen < NSAID < tramadol < opioids
(morphine, oxycodone, hydromorphone).
- Requesting a lesser dose of the same medication IF
ORDERED.
- Requesting a less intrusive route of administration
if both routes are prescribed by the provider (PO <
IV).
12/10/24 18:35
Code Status As Directed
Resuscitation Status: Full Code
12/10/24 19:19
Osmolality, Random Urine Stat
Date Specimen was Collected: 12/10/24
Time Specimen was Collected: 18:32
Comment: ADD ON
Urine Culture Reflexed from UA [Urinalysis Reflex To Culture] Stat
Date Specimen was Collected: 12/10/24
Time Specimen was Collected: 18:32
Urine Microscopic Reflex Cult Stat
Urine Sodium Stat
Date Specimen was Collected: 12/10/24
Time Specimen was Collected: 18:32
Comment: ADD ON
Abnormal Lab Results
12/10/24
15:32
WBC 3.7 L 10^3/uL
(4.8-10.8)
RBC 4.08 L 10^6/uL
(4.20-5.40)
Hct 34.6 L %
(37.0-47.0)
Absolute Lymphs (auto) 0.9 L 10^3/uL
(1.2-3.4)
Sodium 129 L mmol/L
(135-145)
Glucose 130 H mg/dl
(70-99)
Total Bilirubin 1.5 H mg/dl
(0.2-1.3)
AST 218 H U/L
(14-36)
ALT 511 H* U/L
(0-35)
12/10/24 15:32
12/10/24 15:32
Vital Signs
Initial and Last Documented VS:
Initial Vital Signs
Temp Pulse Resp BP Pulse Ox
99.6 F 84 15 132/86 96
12/10/24 15:21 12/10/24 15:21 12/10/24 15:21 12/10/24 15:21 12/10/24 15:21
Last Documented Vital Signs
Temp Pulse Resp BP Pulse Ox
98.4 F 81 21 117/85 97
12/10/24 17:25 12/10/24 18:45 12/10/24 18:45 12/10/24 18:00 12/10/24 18:45
Distance Learning Unit Leader consulted with Physician
Distance Learning Unit Leader consulted with physician?: Yes
Name of Physician Consulted: Arthur
<Kalpesh Gibson, DO - Last Filed: 12/10/24 20:42>
Orders/Labs/Results
Orders:
Orders
12/10/24 15:23
Electrocardiogram (*1) Urgent
Reason for Study: Other
Other Reason for Exam: Possible Sepsis
IV Insert/Care/Rem.- Treatment PRN
12/10/24 15:24
EKG- Treatment ONCE
12/10/24 15:32
Complete Blood Count/With Diff Urgent
Comprehensive Metabolic Panel Urgent
Lactic Acid Q4H
Comment: ON ICE, CANCEL 2ND ORDER IF FIRST LACTIC ACID LEVEL <2
Serum Osmolality Urgent
12/10/24 15:33
Blood Culture Q20M
PRINCESS Source: Blood/Venous
Specimen Description:
Comment: Urgent from separate sites. If patient screens positive for possible sepsis
12/10/24 17:38
Cefepime HCl [Maxipime] 1,000 mg IV NOW STA
12/10/24 17:39
Add On- LAB Urgent
Tests Added?: serum osmolality
0.9% Sodium Chloride 1000 ml [Nss] 1,000 ml IV BOLUS
12/10/24 17:40
Add On- LAB Urgent
Tests Added?: urine osmolality, urine sodium
12/10/24 18:33
Admit/Transfer Patient As Directed
Co-Sign Provider:
Level of Care: Inpatient admission
Assign to:: Medical/Surgical
Physician / Group: hernan
Diagnosis: fever
Reason for Hospitalization: fever
Expected length of stay greater than two midnights?: Yes
ELOS- Estimated Length of Stay in days: 3
I certify the patient meets the requirements for IP care: Yes
12/10/24 18:34
PRN Pain Medication Management As Directed
May give lesser potent ordered pain med per pt: Yes
preference::
Protocol:: Medication orders for pain may be administered in a
manner that supports deferring to patient preference
when the pt is:
- Requesting an ordered lesser potent pain medication.
Least to most potent pain medications are defined
as: acetaminophen < NSAID < tramadol < opioids
(morphine, oxycodone, hydromorphone).
- Requesting a lesser dose of the same medication IF
ORDERED.
- Requesting a less intrusive route of administration
if both routes are prescribed by the provider (PO <
IV).
12/10/24 18:35
Code Status As Directed
Resuscitation Status: Full Code
12/10/24 19:19
Osmolality, Random Urine Stat
Date Specimen was Collected: 12/10/24
Time Specimen was Collected: 18:32
Comment: ADD ON
Urine Culture Reflexed from UA [Urinalysis Reflex To Culture] Stat
Date Specimen was Collected: 12/10/24
Time Specimen was Collected: 18:32
Urine Microscopic Reflex Cult Stat
Urine Sodium Stat
Date Specimen was Collected: 12/10/24
Time Specimen was Collected: 18:32
Comment: ADD ON
Abnormal Lab Results
12/10/24
15:32
WBC 3.7 L 10^3/uL
(4.8-10.8)
RBC 4.08 L 10^6/uL
(4.20-5.40)
Hct 34.6 L %
(37.0-47.0)
Absolute Lymphs (auto) 0.9 L 10^3/uL
(1.2-3.4)
Sodium 129 L mmol/L
(135-145)
Glucose 130 H mg/dl
(70-99)
Total Bilirubin 1.5 H mg/dl
(0.2-1.3)
AST 218 H U/L
(14-36)
ALT 511 H* U/L
(0-35)
12/10/24 15:32
12/10/24 15:32
Vital Signs
Initial and Last Documented VS:
Initial Vital Signs
Temp Pulse Resp BP Pulse Ox
99.6 F 84 15 132/86 96
12/10/24 15:21 12/10/24 15:21 12/10/24 15:21 12/10/24 15:21 12/10/24 15:21
Last Documented Vital Signs
Temp Pulse Resp BP Pulse Ox
98.4 F 81 21 117/85 97
12/10/24 17:25 12/10/24 18:45 12/10/24 18:45 12/10/24 18:00 12/10/24 18:45
<Nain Douglas NP - Last Filed: 12/10/24 20:30>
MDM/Problems Addressed
Differential Diagnosis Includes:
bacteremia, PNA, UTI,
Elevated liver enzymes: acetaminophen use, hepatitis, metastatic disease
MDM/Problems Addressed:
64-year-old female with history of HTN, rectal cancer currently under chemo treatment, Had colon resection 09/05/24 with colostomy then reversal, started chemotherapy Mar 2024, then had surgery, then started chemotherapy again 6 weeks ago, every 2
weeks. Her last chemo is scheduled for 12/18/24.
She is here for fever 101.6 2 days ago, has been taking Tylenol 1000 mg every 4-6 hours past 2 days. Told to stop Tylenol and fever today was 100.9.
Due to fever, she had out patient lab work done including BC x 2, here and was called and told to come in for abnormal liver function.
She did take Tylenol prior to coming here.
She denies chills, cough, SOB, CP, abd pain, UTI symptoms. she has been moving her bowels well. Denies headache, sore throat. Denies n/v/d/c.
EKG: NSR
5:30 p.m.
CBC: No clinically significant abnormality
CMP: Na+ 129, AST 218, ALT 511, Total Bili 1.5, all improving from earlier lab results.
U/A from out pt earlier today neg for infection
CXR from out pt earlier today NAD
Case discussed with Dr. Goodroad who agrees with Cefepime (she's tolerated this in past) and admit
Diagnosis: Immunocompromised febrile pt on chemotherapy for colorectal CA, acute Hyponatremia, acute elevation in liver enzymes
Hospitalist notified of admission.
<Nani Douglas LGSW - Last Filed: 12/10/24 20:30>
*Pulse Oximetry
SaO2: 96
Oxygen Mode of Delivery: Room air
Patient hypoxic: no
*EKG
EKG Intrepretation Date: 12/10/24
Interpretation: normal
Heart Rate: 74
Rate: normal
Rhythm: sinus
[place]: normal axis
Interval: normal interval
QRS Pattern: normal QRS
Ischemia: no ischemia
*Critical Care Note
Total Time (30-74mins, 75-104mins- exclusive of procedures): Not Applicable
ED Attending Note
<Nani Douglas, LGSW - Last Filed: 12/10/24 20:30>
-
Portions of this chart may have been created with voice recognition software.� Occasional wrong word or��sound alike� substitutions may have occurred due to the inherent limitations of voice recognition software.
<Kalpesh Gibson DO - Last Filed: 12/10/24 20:42>
ED Attending Note
Patient seen and examined by attending physician: Yes
ED Attending Note:
I have reviewed and agree with history treatment plan by Nidia douglas DNP. Patient appears no distress, but febrile unclear etiology, and on chemotherapy. IV cefepime given, blood cultures pending.
Discharge Plan
Departure
Patient Disposition: Admit
Date of Disposition: 12/10/24
Time of Disposition: 17:58
Admit to: Med/Surg
Presentation/result/management discussed w/ accepting MD/DO: Hospitalist
Condition: Fair
Discharge Problem:
Acute hyponatremia, Fever, Transaminitis, Immunocompromised patient
Interventions
Interventions:
*Risk Screen - Suicide Last Done: 12/10/24 15:21
*General Assessment Last Done: 12/10/24 15:21
*Neglect/Abuse Screening Last Done: 12/10/24 15:21
*ED COVID-19 Vaccine History Last Done: 12/10/24 15:21
*ED Influenza Vaccine History Last Done: 12/10/24 15:21
ED- Neurological Assessment Last Done: 12/10/24 17:25
ED-Skin Assessment Last Done: 12/10/24 17:25
[2024-12-10 17:22] VITALS: BP 140/53
[2024-12-10 17:23] VITALS: BMI 23.3
[2024-12-10 17:25] VITALS: BP 140/53
[2024-12-10] MEDS: MAXIPIME 1000 MG IV (17:54)
[2024-12-10] MEDS: NSS 1000 IV ×2 (17:55→22:41)
[2024-12-10 18:00] VITALS: BP 117/85
--- NOTE | 2024-12-10 18:01 | HPS.HSE ---
Addendum entered and electronically signed by Barak Mello MD 12/10/24 19:39:
This is an addendum to the H&P written by Roseanne Cruz on 12/10/24. �Patient seen and examined independently with EVAPORATIVE COOLER INSTALLER.
64-year-old female past medical history of rectosigmoid adenocarcinoma involving left ovary status post robotic lower anterior resection with en bloc left salpingo-oophorectomy left ureterolysis on chemotherapy, on September 05, peripheral neuropathy,
active smoker, prior alcohol use disorder, anxiety, asthma, hyperlipidemia, GERD, gallstones, presenting with fever of 101 for few days. �He is complaining of some epigastric pain.
Patient with ongoing neuropathic pain of the left side of the abdomen after her surgery in August with no explanation found.
Had chemotherapy last week.
Complaining of chills, urinary urgency. �Chronic cough. �No abdominal pain or vomiting or diarrhea.
Seen by oncology/steroid negative chest x-ray and urinalysis.
Vital signs unremarkable.
Labs show leukopenia 3.7. �Transaminitis with AST of 218, ALT of 511.
Chest x-ray shows no cardiopulmonary process.
Patient with sepsis concerning for potnetial biliary infection. �Check blood cultures. �IV fluids. �Cefepime/Flagyl. �Check COVID and influenza. �Check abdominal ultrasound.
Original Note:
Family Physician
-
Family Physician:
Chief Complaint
-
fever
History of Present Illness
64-year-old female with history of HTN, rectal cancer currently under chemo treatment, Had colon resection 09/05/24 with colostomy then reversal, started chemotherapy Mar 2024, then had surgery, then started chemotherapy again 6 weeks ago, every 2
weeks. she got her chemo from Monday to Monday. she started of with shaking chills on Monday evening, later she noticed fever of 101.6. she started taking Tylenol 1000 every 4-6 years along with her Tylenol PM at bedtime. she might have took
8-10 Tylenol since Monday night. yesterday she was evaluated by her oncology, who told her to hold off on Tylenol but she took the Tylenol today because she spikes the fever of 100.8 today. she complained of MARY and cough. denied chest pain, sob.
denied abdominal pain, n,v,d. stated urinary urgency for past few weeks. denied dysuria or hematuria. Her last chemo is scheduled for 12/18/24. she has history left sided abdomen and thigh pain.
Due to fever, she had out patient lab work done including BC x 2, here and was called and told to come in for abnormal liver function.
Patient received a dose of cefepime, normal saline in the ER. Urine and blood cultures ordered in the ER, serum cell osmolalities ordered in ER. Admitting for further management
Medical History
Past Medical History
Past Medical History: Reports Other
Additional Past Medical History:
Hyperlipidemia, type 2 diabetes, anxiety, hypertension, GERD, stenosis of colon, left ovarian mass, rectal cancer, rectal polyp, left hydronephrosis, rectosigmoid cancer, left ureteral obstruction, and small, Shingrix,, emphysema, neuropathy, hiatal
hernia
Past Surgical History: Reports Other
Additional Past Surgical History:
Cyst removed from face, right cataract surgery, robotic sigmoid colostomy creation, left ureteral stent
Social History
Tobacco: Smoker (1/2 pack daily)
Alcohol: None
Drug: None
Personal:
Living: With Family
Family History
Family History: Not pertinent
Allergies / Home Medications
Allergies reflects when Allergies were last updated in [facility].
Home Medications with original date entered in [facility]
Allergy/Medication List:
Allergies
Allergy/AdvReac Type Severity Reaction Status Date / Time
cefdinir Allergy Rash Verified 09/12/24 11:51
doxycycline Allergy Rash Verified 09/12/24 11:51
lisinopril Allergy cough/vomit Verified 09/12/24 11:51
ing
Home Medications
albuterol sulfate 90 mcg/actuation aerosol inhaler 2 puff inhalation R QIDPRN PRN sob 02/22/24
amlodipine 2.5 mg tablet (Norvasc) 2.5 mg PO DAILY Blood Pressure 02/22/24
montelukast 10 mg tablet (Singulair) 10 mg PO .@ 1999 asthma 02/22/24
simvastatin 20 mg tablet (Zocor) 20 mg PO .@ 1999 High Cholesterol 02/22/24
folic acid 1 mg tablet 1 mg PO DAILY Supplement 1 month #30 tabs 02/26/24
chlorhexidine gluconate 0.12 % mouthwash 15 ml mucous membrane .@ 1999 MOUTH 03/01/24
diphenhydramine 25 mg-acetaminophen 500 mg tablet (Tylenol PM Extra Strength) 1 tab PO .HS @ 1999 PRN sleep 03/01/24
melatonin 2 mg-soy iso 56 mg-black cohosh 40 mg-calcium 112 mg tablet (Estroven Sleep Cool) 1 tab PO .HS @ 1999 Supplement 03/01/24
sodium chloride 5 % eye ointment (Barry 128) 1 applic ophthalmic (eye) .HS @1999 Eye Condition 03/01/24
famotidine 20 mg tablet 20 mg PO DAILY@1600 Gastrointestinal Issue 03/22/24
B Complex 1 dose PO DAILY Supplement 08/29/24
nicotine (polacrilex) 2 mg gum 4 mg PO Q1HPRN PRN tobacco cessation 08/29/24
pantoprazole 40 mg tablet,delayed release 40 mg PO DAILY GERD 08/29/24
thiamine HCl (vitamin B1) 100 mg tablet 100 mg PO DAILY Supplement 08/29/24
apixaban 2.5 mg tablet (Eliquis) 2.5 mg PO BID 1 month #60 tabs 09/09/24
gabapentin 100 mg capsule 100 mg PO TID 30 days #90 caps 09/09/24
tramadol 50 mg tablet 50 mg PO Q6H #20 tabs 09/09/24
Review of Systems
-
Constitutional: Reports Fever and Chills
EENT: Reports No Symptoms
Respiratory: Reports No Symptoms
Cardiac: Reports No Symptoms
Abdomen/GI: Reports No Symptoms
: Reports No Symptoms
Musculoskeletal: Reports No Symptoms
Skin: Reports No Symptoms
Neurological: Reports No Symptoms
Endocrine: Reports No Symptoms
Hematologic/Lymphatic: Reports No Symptoms
Psych: Reports No Symptoms
Physical Exam
Vital Signs
Vital Signs
Temp Pulse Resp BP Pulse Ox
98.4 F 74 16 140/53 98
12/10/24 17:25 12/10/24 17:25 12/10/24 17:25 12/10/24 17:25 12/10/24 17:25
Physical Exam
General: Well Developed, Well Nourished and No Apparent Distress
HEENT: NormoCephalic, Moist mucous membranes and Atraumatic
Respiratory: Clear
Cardiac: S1/S2 and Regular Rhythm; No Murmur or Rub
GI: Soft, Non Tender, Non Distended and Normal Bowel Sounds; No Organomegaly
Rectal: Deferred by Provider
Musculoskeletal: No Clubbing, No Cyanosis and No Edema
Skin: No Rash
Neuro: AO x 3 and Nonfocal/grossly intact
Psych: Calm
Laboratory Results
-
12/10/24 15:32
12/10/24 15:32
Laboratory Results
Lactic Acid 0.9 mmol/L (0.7-2.0) 12/10/24 15:32
Lactic Acid Cancelled 12/10/24 15:32
Total Bilirubin 1.5 mg/dl (0.2-1.3) H 12/10/24 15:32
AST 218 U/L (14-36) H 12/10/24 15:32
ALT 511 U/L (0-35) H* 12/10/24 15:32
Alkaline Phosphatase 121 U/L (38-126) 12/10/24 15:32
Data Reviewed
-
Lab Data: Labs Reviewed by me
Impression/Plan
-
# sepsis /Fever unclear cause
- WBC 3.7,ast 218,alt 511,bili 1.3
- Chest x-ray with no acute finding
- Trend LFTs
-obtain US of abdomen
- Blood culture sent from ER
- UA negative today morning.
- IV cefepime,flagyl continued
- Motrin as needed for fever or pain
-obtain COVID and FLU
-fluids continued
# History of colorectal cancer
- On chemo
- [facility]
-Robotic LAR with en-bloc left salpingoophorectomy and left ureterolysis on 09/05/2024 for rectosigmoid cancer adenocarcinoma involving left ovary
# Acute hyponatremia likely hypovolemic
- Sodium 129
- Continue to monitor
-fluids continued
#Hx essential HTN
- Norvasc continue with hold parameters
#Peripheral neuropathy
- Gabapentin
#Active smoker
- nicotine gum continued
#Asthma
- Continue Singulair, albuterol as needed
#HLD
Continue Zocor 20 mg
#GERD
- Continue PPI, famotidine 20 mg daily
DVT prophylaxis�subcu Lovenox
Full code
--- NOTE | 2024-12-10 18:42 | EDRN ---
per the admitting provider Anthony Cronin, the provider was concerned about the medications that the pt told her she had in her personal bag, this RN entered the pts room and asked the pt if she had medications in her bag and the pt stated, 'Yes, the
hospital isn't in control of my medications, if I don't get my medications on time then i am taking them myself, i am on a certain regimen', this RN notified the pt that this RN understood the pts concern however this RN explained to the pt that it
is not encouraged for the pt to have their medications bottles with them to prevent double dosing of the patient dosing themselves along with the hospital staff administration, and this RN explained that it is a safety issue, this RN asked the pt if
she would mind having her cone picker her medications and bringing them home or if she would mind having this RN send them to pharmacy until discharge and the pt refused, this RN asked the pt to not take her medications while in the hospital,
the pt stated, 'I am an adult and i can do what i want', this RN explained to the pt that this RN respects that the pt is an adult and just wants to keep the pt safe, this information was relayed to admitting provider and the oncoming night nurse
[2024-12-10 19:00] VITALS: BP 129/60
[2024-12-10 19:35] LABS: Urine Character Clear (Clear)
[2024-12-10 19:43] LABS: Urine Squamous Cell 0-2 /LPF (Few)
[2024-12-10 19:44] LABS: Urine White Cell 0-2 /HPF (0-5)
[2024-12-10 19:55] LABS: COVID-19 Antigen Negative (Negative)
[2024-12-10 20:00] VITALS: BP 140/56
--- NOTE | 2024-12-10 20:33 | PTCARENOTE ---
pt brought in own/home medications. Dr. Gibson aware. PT states she will be taking her own meds @ designated times, as she does not want to give them to pharmacy. Issue discussed with dry pan charger and doctor. DR. Gibson stated it is okay for pt to
take own medications as long as we document what and when she is taking them.
--- NOTE | 2024-12-10 20:37 | PTCARENOTE ---
pt took 300mg of Gabapentin, 20mg of simvastatin, and 10mg of montelukast @ 2029. Dr. Star anderson.
[2024-12-10] MEDS: NEURONTIN PO ×2 (22:03→22:05)
[2024-12-10] MEDS: SINGULAIR PO (22:04)
[2024-12-10] MEDS: LIPITOR PO (22:05)
[2024-12-10] MEDS: FLAGYL 500 MG 100 IV (22:42)
[2024-12-11] VITALS (7 sets, daily range): BP systolic 113–167; BP diastolic 51–84; BMI 23.0
[2024-12-11] MEDS: MAXIPIME 1000 MG IV ×5 (02:20→23:04)
[2024-12-11] MEDS: ULTRAM PO ×4 (02:30→16:06)
[2024-12-11 05:39] LABS: Hematocrit 32.7 % (37.0-47.0); Hemoglobin 11.4 g/dL (12.0-16.0); Mean Corp Hgb Conc. 34.9 g/dL (33.0-37.0); Mean Corpuscular Volume 83.6 fL (81.0-99.0); Platelet Count 147 10^3/uL (130-400); Red Cell Dist. Width 13.8 % (11.5-14.5)
[2024-12-11 06:00] LABS: ALT (SGPT) 341 U/L (0-35); AST (SGOT) 107 U/L (14-36); Albumin 3.7 g/dl (3.5-5.0); Alkaline Phosphatase 125 U/L (38-126); Blood Urea Nitrogen 7 mg/dl (7-17); Calcium 8.6 mg/dl (8.4-10.2); Carbon Dioxide 23 mmol/L (22-30); Chloride 104 mmol/L (98-107); Estimated Creatinine Clearance 86 ml/min; Glucose 136 mg/dl (70-99); Potassium 3.6 mmol/L (3.5-5.1); Sodium 133 mmol/L (135-145); Total Protein 6.1 g/dl (6.3-8.2); eGFR > 60.00
[2024-12-11] MEDS: FLAGYL 500 MG 100 IV (06:09)
[2024-12-11] MEDS: STERILE WATER FOR INJECTION IV ×2 (07:23)
[2024-12-11] MEDS: NORVASC 2.5 MG PO (07:46)
[2024-12-11] MEDS: VITAMIN B1 100 MG PO (07:46)
[2024-12-11] MEDS: FOLVITE 1 MG PO (07:47)
[2024-12-11] MEDS: NEURONTIN 200 MG PO ×2 (07:47→16:05)
[2024-12-11] MEDS: PROTONIX 40 MG PO (07:47)
[2024-12-11] MEDS: NSS 1000 IV (11:39)
[2024-12-11] MEDS: STERILE WATER FOR INJECTION 10 ML IV ×3 (12:14→23:04)
--- NOTE | 2024-12-11 14:21 | W.PN.HOSP.TC ---
Today's Communication/Plan
-
f/u cultures
abx
mri abd/mrcp
Assessment / Plan
Assessment / Plan
Physical Exam
General: Well Developed, Well Nourished and No Apparent Distress
HEENT: NormoCephalic, Moist mucous membranes and Atraumatic
Respiratory: Clear
Cardiac: S1/S2 and Regular Rhythm; No Murmur or Rub
GI: Soft, Non Tender, Non Distended and Normal Bowel Sounds; No Organomegaly
Rectal: Deferred by Provider
Musculoskeletal: No Clubbing, No Cyanosis and No Edema
Skin: No Rash
Neuro: AO x 3 and Nonfocal/grossly intact
Psych: Calm
# sepsis /Fever unclear cause
#Transaminitis
-possible viral - with abd pain, fever, and possible tenderness and Elev LFTs
-MRI Abd/MRCP
- Trend LFTs
-obtain US of abdomen - unremarkable
- Blood culture sent from ER
- no urinary symptoms
- IV cefepime can be continued until cultures finalized; dc flagyl
- Motrin as needed for fever or pain
-obtain COVID and FLU
-fluids continued
# History of colorectal cancer
- On chemo
- [facility]
-Robotic LAR with en-bloc left salpingoophorectomy and left ureterolysis on 09/05/2024 for rectosigmoid cancer adenocarcinoma involving left ovary
# Acute hyponatremia likely hypovolemic
- Sodium 129
- Continue to monitor
-fluids continued
#Hx essential HTN
- Norvasc continue with hold parameters
#Peripheral neuropathy
- Gabapentin
#Active smoker
- nicotine gum continued
#Asthma
- Continue Singulair, albuterol as needed
#HLD
Continue Zocor 20 mg
#GERD
- Continue PPI, famotidine 20 mg daily
DVT prophylaxis�subcu Lovenox
Full code
Total time spent on today's encounter was 51 minutes which included time spent in counseling the patient/family regarding diagnosis and treatment plan as listed above, goals of care, and symptom management. Case was discussed with nursing staff,
specialists, and care coordinators/case management. All labs and imaging personally reviewed by me. Remainder the time spent in detailed review of previous records, lab data, imaging, and other medical provider documentation.
Anticipated Discharge: 24 - 48 hours
Subjective/Interval History
-
Date of Service: December 11, 2024
No acute events overnight
Objective Data
-
Labs:
Laboratory Results
12/11/24
05:09
WBC 3.6 L
Hgb 11.4 L
Hct 32.7 L
Plt Count 147
Sodium 133 L
Potassium 3.6
Chloride 104
Carbon Dioxide 23
BUN 7
Creatinine 0.6
Glucose 136 H
Calcium 8.6
Total Bilirubin 1.1
AST 107 H
ALT 341 H
Alkaline Phosphatase 125
Vital Signs:
Vital Signs
Temp Pulse Resp BP Pulse Ox
98.9 F 81 19 113/84 98
12/11/24 07:56 12/11/24 11:30 12/11/24 11:30 12/11/24 07:47 12/11/24 11:30
Review of Systems
-
History Source: Patient
All other systems: Reviewed and negative
Data Reviewed
-
Ultrasound: Report Reviewed by me
Labs: Labs Reviewed by me
--- NOTE | 2024-12-11 14:51 | EDCM ---
CM reviewed chart and met with pt bedside in ED. Lives with her in ranch style home with basement, 2 MALOU.
Independent in ADLs, personal care and ambulation at baseline, has rolling walker but not currently using it. Also has shower chair and grab bars in shower.
Pt currently receiving chemo at [place], Dr Garza, next scheduled treatment 12/18.
Confirms prescription coverage.
Hx [facility]VN, no hx SNF. Prior to admission, was going to OP PT at [facility].
PCP: Sheila Pack
Pharmacy: [facility]
Anticipate discharge home, CM will continue to follow for any discharge planning needs.
[2024-12-11] MEDS: PEPCID 20 MG PO (16:05)
[2024-12-11] MEDS: FLAGYL 500 MG IV (16:12)
[2024-12-11] MEDS: TYLENOL 650 MG PO (16:40)
[2024-12-11] MEDS: LIPITOR 10 MG PO (20:40)
[2024-12-11] MEDS: MURO 5% OPHTHALMIC OINTMENT 1 APPLIC BOTH EYES (20:41)
[2024-12-11] MEDS: SINGULAIR 10 MG PO (20:42)
[2024-12-11] MEDS: NEURONTIN 300 MG PO (21:01)
[2024-12-11] MEDS: ULTRAM 50 MG PO (21:01)
[2024-12-12] MEDS: NSS 1000 IV ×2 (01:06→15:57)
[2024-12-12] MEDS: ULTRAM PO ×2 (04:41→09:19)
[2024-12-12] MEDS: MAXIPIME 1000 MG IV ×4 (05:59→23:49)
[2024-12-12] MEDS: STERILE WATER FOR INJECTION 10 ML IV ×4 (05:59→23:49)
[2024-12-12 06:27] LABS: Hematocrit 32.2 % (37.0-47.0); Hemoglobin 11.4 g/dL (12.0-16.0); Mean Corp Hgb Conc. 35.4 g/dL (33.0-37.0); Mean Corpuscular Volume 84.5 fL (81.0-99.0); Platelet Count 172 10^3/uL (130-400); Red Cell Dist. Width 13.9 % (11.5-14.5)
[2024-12-12 06:53] LABS: Blood Urea Nitrogen 8 mg/dl (7-17); Calcium 8.7 mg/dl (8.4-10.2); Carbon Dioxide 24 mmol/L (22-30); Chloride 108 mmol/L (98-107); Estimated Creatinine Clearance 86 ml/min; Glucose 122 mg/dl (70-99); Potassium 3.9 mmol/L (3.5-5.1); Sodium 134 mmol/L (135-145); eGFR > 60.00
[2024-12-12 07:00] VITALS: BP 117/66
--- NOTE | 2024-12-12 08:35 | CM ---
Pt resides with her in a ranch style home with 2 entry steps.
BUSINESS INTELLIGENCE CONSULTANT, pt was ndependent in ambulation, ADLs, and personal care. She has a rolling walker but not currently using it. Also has shower chair and grab bars in shower.
Pt currently receiving chemo at [place], Dr Garza, next scheduled treatment 12/18.
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
Plan: CM to follow to coordinate all identified discharge planning needs.
PCP: Sheila Pack
Ph[facility]acy: [facility] [place]
[2024-12-12] MEDS: NEURONTIN 200 MG PO ×2 (09:18→13:52)
[2024-12-12] MEDS: PROTONIX 40 MG PO (09:18)
[2024-12-12] MEDS: FOLVITE 1 MG PO (09:18)
[2024-12-12] MEDS: VITAMIN B1 100 MG PO (09:18)
[2024-12-12] MEDS: NORVASC 2.5 MG PO (09:18)
[2024-12-12 09:29] LABS: ALT (SGPT) 241 U/L (0-35); AST (SGOT) 55 U/L (14-36); Albumin 3.4 g/dl (3.5-5.0); Alkaline Phosphatase 98 U/L (38-126); Total Protein 5.8 g/dl (6.3-8.2)
--- NOTE | 2024-12-12 13:31 | W.PN.HOSP.TC ---
Today's Communication/Plan
-
Follow-up MRI/MRCP
Follow-up cultures
Assessment / Plan
Assessment / Plan
Physical Exam
General: Well Developed, Well Nourished and No Apparent Distress
HEENT: NormoCephalic, Moist mucous membranes and Atraumatic
Respiratory: Clear
Cardiac: S1/S2 and Regular Rhythm; No Murmur or Rub
GI: Soft, Non Tender, Non Distended and Normal Bowel Sounds; No Organomegaly
Rectal: Deferred by Provider
Musculoskeletal: No Clubbing, No Cyanosis and No Edema
Skin: No Rash
Neuro: AO x 3 and Nonfocal/grossly intact
Psych: Calm
# sepsis /Fever unclear cause
#Transaminitis, improving
-possible viral - with abd pain, fever, and possible tenderness and Elev LFTs
-MRI Abd/MRCP
- Trend LFTs
-obtain US of abdomen - unremarkable
- Blood culture sent from ER
- no urinary symptoms
- IV cefepime can be continued until cultures finalized; dc flagyl
- Motrin as needed for fever or pain
-obtain COVID and FLU
-fluids continued
# History of colorectal cancer
- On chemo
- [facility]
-[facility] LAR with en-bloc left salpingoophorectomy and left ureterolysis on 09/05/2024 for rectosigmoid cancer adenocarcinoma involving left ovary
# Acute hyponatremia likely hypovolemic
- Sodium 129
- Continue to monitor
-fluids continued
#Hx essential HTN
- Norvasc continue with hold parameters
#Peripheral neuropathy
- Gabapentin
#Active smoker
- nicotine gum continued
#Asthma
- Continue Singulair, albuterol as needed
#HLD
Continue Zocor 20 mg
#GERD
- Continue PPI, famotidine 20 mg daily
DVT prophylaxis�subcu Lovenox
Full code
Anticipated Discharge: Within 24 hours
Subjective/Interval History
-
Date of Service: December 12, 2024
No acute events overnight
Objective Data
-
Labs:
Laboratory Results
12/12/24
05:42
WBC 3.1 L
Hgb 11.4 L
Hct 32.2 L
Plt Count 172
Sodium 134 L
Potassium 3.9
Chloride 108 H
Carbon Dioxide 24
BUN 8
Creatinine 0.6
Glucose 122 H
Calcium 8.7
Total Bilirubin 0.8
AST 55 H
ALT 241 H
Alkaline Phosphatase 98
Vital Signs:
Vital Signs
Temp Pulse Resp BP Pulse Ox
97.9 F 68 16 117/66 97
12/12/24 07:00 12/12/24 09:36 12/12/24 09:36 12/12/24 09:18 12/12/24 09:36
I&O
12/11/24 12/12/24 12/13/24
06:59 06:59 06:59
Intake Total 480 / 480
Balance 480 / 480
Review of Systems
-
History Source: Patient
All other systems: Reviewed and negative
Data Reviewed
-
Ultrasound: Report Reviewed by me
Labs: Labs Reviewed by me
--- NOTE | 2024-12-12 14:34 | PN.CDI ---
CDI
- -
CDI:
Physician Documentation Request
Admit Date: 12/10/24 19:16
Dear ,
Sepsis without organ dysfunction is no longer used within our health system. These cases are now coded as the primary infection, not as sepsis.
[facility] is using an adapted version of the 2016 Third International Consensus Definitions for Sepsis and Septic Shock (Sepsis-3) where sepsis is defined as life threatening organ dysfunction caused by a deregulated host response to infection.
Please reference the official [facility] Sepsis Recognition Tool for further information, which is available on the Intranet under Infection Prevention.
Clinical Indicators Include:
Pt admitted for sepsis /Fever unclear cause.
Progress Notes:
12/10 H&P: 'she got her chemo from Monday to Monday. she started of with shaking chills on Monday evening, later she noticed fever of 101.6. she started taking Tylenol 1000 every 4-6 years along with her Tylenol PM at bedtime. she might have took
8-10 Tylenol since Monday night. yesterday she was evaluated by her oncology, who told her to hold off on Tylenol but she took the Tylenol today because she spikes the fever of 100.8 today.
12/12 sepsis /Fever unclear cause
#Transaminitis, improving
-possible viral - with abd pain, fever, and possible tenderness and Elev LFTs
Trend vital signs:
Temp: 100.5
HR: 60-80
Labs:
WBC: 3.7-3.1
Lactate: 0.9
Creatinine: 0.6
Platelets: 147-172
Bilirubin: 1.5
Treatment:
- IV cefepime can be continued until cultures finalized; dc flagyl
- Motrin as needed for fever or pain
Based on your medical judgment, please review the documentation pertaining to Sepsis due to (Enter infection) and further clarify the clinical indicators and any organ dysfunction associated with the diagnosis, if applicable:
� Sepsis ruled out, possible viral illness only
� Sepsis due to possible viral, with organ dysfunction of
� Other
Use of terms such as suspected, likely, concern for, or probable (associated with a specific diagnosis that is being evaluated, monitored, or treated as if it exists) are acceptable and can be coded in the inpatient setting when documented at the
time of discharge.
Please use your independent medical judgement in providing your response.
Thank you,
Juhi Hudson RN,BSN
CDI Specialist
[place] [employer]
[2024-12-12 15:00] VITALS: BP 130/54
[2024-12-12] MEDS: PEPCID 20 MG PO (15:11)
[2024-12-12] MEDS: SINGULAIR 10 MG PO (20:26)
[2024-12-12] MEDS: LIPITOR 10 MG PO (20:26)
[2024-12-12] MEDS: MURO 5% OPHTHALMIC OINTMENT 1 APPLIC BOTH EYES (20:26)
[2024-12-12] MEDS: NEURONTIN 300 MG PO (21:15)
[2024-12-12] MEDS: ULTRAM 25 MG PO (21:15)
[2024-12-12 23:10] VITALS: BP 115/50
[2024-12-13] MEDS: NSS 1000 IV (04:21)
[2024-12-13] MEDS: STERILE WATER FOR INJECTION 10 ML IV ×2 (05:35→11:26)
[2024-12-13] MEDS: MAXIPIME 1000 MG IV ×2 (05:35→11:26)
[2024-12-13 07:18] LABS: Hematocrit 33.1 % (37.0-47.0); Hemoglobin 11.6 g/dL (12.0-16.0); Mean Corp Hgb Conc. 35.0 g/dL (33.0-37.0); Mean Corpuscular Volume 85.1 fL (81.0-99.0); Platelet Count 211 10^3/uL (130-400); Red Cell Dist. Width 13.9 % (11.5-14.5)
[2024-12-13 07:20] VITALS: BP 121/48
[2024-12-13 07:46] LABS: Blood Urea Nitrogen 9 mg/dl (7-17); Calcium 8.8 mg/dl (8.4-10.2); Carbon Dioxide 27 mmol/L (22-30); Chloride 108 mmol/L (98-107); Estimated Creatinine Clearance 74 ml/min; Glucose 120 mg/dl (70-99); Potassium 4.4 mmol/L (3.5-5.1); Sodium 139 mmol/L (135-145); eGFR > 60.00
[2024-12-13] MEDS: VITAMIN B1 100 MG PO (08:14)
[2024-12-13] MEDS: FOLVITE 1 MG PO (08:14)
[2024-12-13] MEDS: NEURONTIN 200 MG PO (08:14)
[2024-12-13] MEDS: NORVASC 2.5 MG PO (08:14)
[2024-12-13] MEDS: PROTONIX 40 MG PO (08:14)
[2024-12-13] MEDS: FLUSH (NSS) 2 FLUSH IV (11:27)
--- NOTE | 2024-12-13 12:19 | W.PN.HOSP.TC ---
Addendum entered and electronically signed by Lexa Aceves MD 12/15/24 14:51:
Sepsis ruled out, possible viral illness only
Addendum entered and electronically signed by Lexa Aceves MD 12/13/24 15:50:
*no acute infection, mild common bile duct dilation without intrahepatic duct dilation, stable
[id number]
Original Note:
Today's Communication/Plan
-
can rx abx for additional 5 days
f/u lfts outpt
f/u pcp, hematology outpt
Assessment / Plan
Assessment / Plan
Physical Exam
General: Well Developed, Well Nourished and No Apparent Distress
HEENT: NormoCephalic, Moist mucous membranes and Atraumatic
Respiratory: Clear
Cardiac: S1/S2 and Regular Rhythm; No Murmur or Rub
GI: Soft, Non Tender, Non Distended and Normal Bowel Sounds; No Organomegaly
Rectal: Deferred by Provider
Musculoskeletal: No Clubbing, No Cyanosis and No Edema
Skin: No Rash
Neuro: AO x 3 and Nonfocal/grossly intact
Psych: Calm
# sepsis /Fever unclear cause
#Transaminitis, improving
-possible viral - with abd pain, fever, and possible tenderness and Elev LFTs; doubt related to chemo
� In setting of immunocompromise state along with unknown etiology, will complete antibiotic course for total 7 days
-MRI Abd/MRCP with acute infection, mild common bile duct dilation without intrahepatic duct dilation, stable
- Trend LFTs
-obtain US of abdomen - unremarkable
- Blood culture sent from ER
- no urinary symptoms
-COVID, flu negative
-fluids continued
�Follow-up oncology outpatient, spoke to the team and they will reach out to them. This also may be related
# History of colorectal cancer
- On chemo
- [facility]
-Robotic LAR with en-bloc left salpingoophorectomy and left ureterolysis on 09/05/2024 for rectosigmoid cancer adenocarcinoma involving left ovary
# Acute hyponatremia likely hypovolemic, improved
- Continue to monitor
-fluids continued
#Hx essential HTN
- Norvasc continue with hold parameters
#Peripheral neuropathy
- Gabapentin
#Active smoker
- nicotine gum continued
#Asthma
- Continue Singulair, albuterol as needed
#HLD
Continue Zocor 20 mg
#GERD
- Continue PPI, famotidine 20 mg daily
DVT prophylaxis�subcu Lovenox
Full code
More than 30 minutes spent in discharge including
Final examination of the patient
Summarizing hospital stay
Instructions for continuing care to all relevant caregivers
Preparation of discharge records, prescriptions, and referral forms
Total time spent (in minutes): 36
Anticipated Discharge: Today
Subjective/Interval History
-
Date of Service: December 13, 2024
no acute events, feels well tolerating diet
Objective Data
-
Labs:
Laboratory Results
12/13/24
06:36
WBC 3.7 L
Hgb 11.6 L
Hct 33.1 L
Plt Count 211 D
Sodium 139
Potassium 4.4
Chloride 108 H
Carbon Dioxide 27
BUN 9
Creatinine 0.7
Glucose 120 H
Calcium 8.8
Total Bilirubin Pending
AST Pending
ALT Pending
Alkaline Phosphatase Pending
Vital Signs:
Vital Signs
Temp Pulse Resp BP Pulse Ox
97.9 F 58 17 121/48 99
12/13/24 07:20 12/13/24 08:14 12/13/24 07:20 12/13/24 08:14 12/13/24 07:20
I&O
12/12/24 12/13/24 12/14/24
06:59 06:59 06:59
Intake Total 480 / 480 1440 / 1440
Balance 480 / 480 1440 / 1440
Physical Exam
-
General: No Apparent Distress
HEENT: Normocephalic
Respiratory: Clear to Auscultation
GI: Soft, Nontender and Nondistended
Skin: Warm
Neuro: Awake, Alert, Oriented and AO x 3
Psych: Calm
Data Reviewed
-
Ultrasound: Report Reviewed by me
MRI: Report Reviewed by me
Labs: Labs Reviewed by me
--- NOTE | 2024-12-13 12:28 | W.DS.TRANS ---
DC Summary - [employer] Child[employer]
-
Discharge Instructions:
Discharge Diagnosis/Procedures # sepsis /Fever unclear cause - possibly viral
-#Transaminitis, improving
Activity As tolerated
Blood Work cbc and cmp in 1 week with pcp
Instructions:
Stand-Alone Forms:
Changes to Home Medications: Yes
Discharge Medications:
DC Medications w/original date entered in [employer]
albuterol sulfate 90 mcg/actuation aerosol inhaler 2 puff inhalation R QIDPRN PRN sob 02/22/24
amlodipine 2.5 mg tablet (Norvasc) 2.5 mg PO DAILY Blood Pressure 02/22/24
montelukast 10 mg tablet (Singulair) 10 mg PO HS asthma 02/22/24
simvastatin 20 mg tablet (Zocor) 20 mg PO HS High Cholesterol 02/22/24
folic acid 1 mg tablet 1 mg PO DAILY Supplement 1 month #30 tabs 02/26/24
diphenhydramine 25 mg-acetaminophen 500 mg tablet (Tylenol PM Extra Strength) 2 tab PO HS Sleep 03/01/24
melatonin 2 mg-soy iso 56 mg-black cohosh 40 mg-calcium 112 mg tablet ([place]roven Sleep Cool) 1 tab PO HS Supplement 03/01/24
sodium chloride 5 % eye ointment (Barry 128) 1 applic BOTH EYES HS Eye Condition 03/01/24
famotidine 20 mg tablet 20 mg PO QPM Gastrointestinal Issue 03/22/24
nicotine (polacrilex) 2 mg gum 2 mg PO Q1HPRN PRN tobacco cessation 08/29/24
pantoprazole 40 mg tablet,delayed release 40 mg PO DAILY GERD 08/29/24
thiamine HCl (vitamin B1) 100 mg tablet 100 mg PO DAILY Supplement 08/29/24
vitamin B complex 1 tab PO DAILY Supplement ##0 08/29/24
gabapentin 100 mg capsule 200 mg PO BID@0800,1200 Neurological Condition 12/10/24
gabapentin 100 mg capsule 300 mg PO HS Neurological Condition 12/10/24
tramadol 50 mg tablet 25 mg PO HSPRN PRN moderate pains 12/11/24
levofloxacin 750 mg tablet 750 mg PO DAILY 5 days #5 tabs 12/13/24
tramadol 50 mg tablet 25 mg (1/2 x 50 mg) PO Q6HPRN PRN moderate pain #0 tabs 12/13/24
Home Medication Changes
levofloxacin 750 mg tablet 750 mg PO DAILY 5 days #5 tabs 12/13/24
Pending Results: No
[2024-12-13] MEDS: FLUZONE HIGH-DOSE 2025-26 0.5 ML IM (12:35)
[2024-12-13 12:36] LABS: ALT (SGPT) 185 U/L (0-35); AST (SGOT) 41 U/L (14-36); Albumin 3.6 g/dl (3.5-5.0); Alkaline Phosphatase 89 U/L (38-126); Total Protein 5.9 g/dl (6.3-8.2)
[2024-12-13 13:00] VITALS: BP 125/50
--- NOTE | 2024-12-13 15:57 | CM ---
F/U: Patient discharge with no needs. PLAN: Home No Needs.
== END 2024-12-13 13:30 | disposition home or self-care (01) | DRG 866 ==
LOC: 3 WEST ACU 19:16
PROVIDERS: Registered Nurse; ADMITTING PHYSICIAN Hospitalist; ATTENDING PHYSICIAN Internal Medicine; EMERGENCY PHYSICIAN Emergency Medicine; FAMILY PHYSICIAN Internal Medicine
DX: B34.9 Viral infection, unspecified (principal); E87.1 Hypo-osmolality and hyponatremia; D84.9 Immunodeficiency, unspecified; R74.01 Elevation of levels of liver transaminase levels; Z85.048 Personal history of other malignant neoplasm of rectum, rectosigmoid junction, and anus; E86.1 Hypovolemia; I10 Essential (primary) hypertension; E11.40 Type 2 diabetes mellitus with diabetic neuropathy, unspecified; F17.210 Nicotine dependence, cigarettes, uncomplicated; J44.89 Other specified chronic obstructive pulmonary disease; E78.5 Hyperlipidemia, unspecified; K21.9 Gastro-esophageal reflux disease without esophagitis; Z93.3 Colostomy status; Z98.41 Cataract extraction status, right eye; Z88.1 Allergy status to other antibiotic agents; Z88.8 Allergy status to other drugs, medicaments and biological substances; Z79.01 Long term (current) use of anticoagulants; F41.9 Anxiety disorder, unspecified; J43.9 Emphysema, unspecified
CPT/HCPCS: 36415; 71046; 74183; 76700; 80053; 81003; 81015; 82043; 82248; 82570; 83036; 83605; 83930; 83935; 84300; 85025; 85027; 87040; 87086; 87502; 87811; 90662; 93005; 94640; 96361; 96374; 96375; 99285; A9575; G0008

== ENCOUNTER → 2024-12-16 08:55 | Outpatient (REF) | payer MEDICARE, BC, SELFPAY ==
[2024-12-16 12:35] LABS: Hematocrit 39.8 % (37.0-47.0); Hemoglobin 13.5 g/dL (12.0-16.0); Mean Corp Hgb Conc. 33.9 g/dL (33.0-37.0); Mean Corpuscular Volume 89.4 fL (81.0-99.0); Nucleated Red Blood Cells % 0 %; Platelet Count 304 10^3/uL (130-400); Red Cell Dist. Width 14.4 % (11.5-14.5)
[2024-12-16 13:04] LABS: ALT (SGPT) 94 U/L (0-35); AST (SGOT) 31 U/L (14-36); Albumin 4.6 g/dl (3.5-5.0); Alkaline Phosphatase 106 U/L (38-126); Blood Urea Nitrogen 10 mg/dl (7-17); Calcium 10.0 mg/dl (8.4-10.2); Carbon Dioxide 32 mmol/L (22-30); Chloride 101 mmol/L (98-107); Glucose 107 mg/dl (70-99); Potassium 4.2 mmol/L (3.5-5.1); Sodium 138 mmol/L (135-145); Total Protein 7.4 g/dl (6.3-8.2); eGFR > 60.00
== END ==
LOC: HWWDC 08:55
PROVIDERS: ATTENDING PHYSICIAN Obstetrics & Gynecology; FAMILY PHYSICIAN Internal Medicine; REFERRING PHYSICIAN Internal Medicine Hematology & Oncology
DX: Z12.31 Encounter for screening mammogram for malignant neoplasm of breast (principal); A41.9 Sepsis, unspecified organism; R74.01 Elevation of levels of liver transaminase levels; R50.9 Fever, unspecified; D84.9 Immunodeficiency, unspecified
CPT/HCPCS: 36415; 77063; 77067; 80053; 85025

== ENCOUNTER → 2024-12-23 07:22 | Outpatient (REF) | payer MEDICARE, BC, SELFPAY ==
[2024-12-23 10:24] LABS: Hematocrit 40.3 % (37.0-47.0); Hemoglobin 13.3 g/dL (12.0-16.0); Mean Corp Hgb Conc. 33.0 g/dL (33.0-37.0); Mean Corpuscular Volume 89.0 fL (81.0-99.0); Platelet Count 303 10^3/uL (130-400); Red Cell Dist. Width 14.6 % (11.5-14.5)
[2024-12-23 11:22] LABS: ALT (SGPT) 32 U/L (0-35); AST (SGOT) 30 U/L (14-36); Albumin 4.5 g/dl (3.5-5.0); Alkaline Phosphatase 91 U/L (38-126); Blood Urea Nitrogen 11 mg/dl (7-17); Calcium 9.3 mg/dl (8.4-10.2); Carbon Dioxide 27 mmol/L (22-30); Chloride 103 mmol/L (98-107); Glucose 164 mg/dl (70-99); Potassium 4.2 mmol/L (3.5-5.1); Sodium 138 mmol/L (135-145); Total Protein 7.0 g/dl (6.3-8.2); eGFR > 60.00
== END ==
LOC: HWLAB 07:22
PROVIDERS: ATTENDING PHYSICIAN Internal Medicine Hematology & Oncology; FAMILY PHYSICIAN Internal Medicine
DX: C20 Malignant neoplasm of rectum (principal); C79.60 Secondary malignant neoplasm of unspecified ovary; M54.50 Low back pain, unspecified
CPT/HCPCS: 36415; 80053; 85027

== ENCOUNTER → 2024-12-24 08:02 | Outpatient (REF) | payer MEDICARE, BC, SELFPAY | LOC: RAD 08:02 | PROVIDERS: ATTENDING PHYSICIAN Internal Medicine Hematology & Oncology; FAMILY PHYSICIAN Internal Medicine; OTHER PHYSICIAN Urology; REFERRING PHYSICIAN Surgery | DX: C20 Malignant neoplasm of rectum (principal); C79.60 Secondary malignant neoplasm of unspecified ovary; M54.50 Low back pain, unspecified | CPT/HCPCS: 71260; 74177; Q9967 ==